=== PATIENT | male | born 1950 | race Caucasian/White ===

== ENCOUNTER 2020-12-11 10:37 | Outpatient (REF) | payer MEDICARE, SELFPAY ==
[2020-12-11 14:29] LABS: Alanine Aminotransferase 18 U/L (0-40); Albumin Level 4.5 g/dL (3.5-5.0); Alkaline Phosphatase 96 U/L (39-117); Anion Gap 12 (12-20); Aspartate Amino Transferase 17 U/L (5-37); Bilirubin Total 0.9 mg/dL (0.0-1.0); Blood Urea Nitrogen 14 mg/dL (9-16); Calcium 9.3 mg/dL (8.4-10.2); Carbon Dioxide 28 mmol/L (22-29); Chloride 104 mmol/L (96-108); Cholesterol 187 mg/dL; Estimated Glomerular Filt Rate > 60; Glucose Fasting 73 mg/dL (60-99); HDL Cholesterol 48 mg/dL; LDL Cholesterol Calculated 117 mg/dl; Potassium 4.3 mmol/L (3.3-5.1); Sodium 140 mmol/L (135-145); Total Protein 7.3 g/dL (6.5-8.0); Triglycerides 113 mg/dL
[2020-12-11 14:55] LABS: Free T4 (Free Thyroxine) 0.77 ng/dL (0.71-1.85); Thyroid Stimulating Hormone 12.92 uIU/mL (0.32-4.0); Vitamin D 25-OH Total 26.9 ng/mL (>30)
== END 2020-12-11 10:38 | disposition home or self-care (01) ==
LOC: HO.HMGCLDS 10:37
PROVIDERS: PCP Internal Medicine; Visit Provider Internal Medicine
DX: I42.1 Obstructive hypertrophic cardiomyopathy (principal); E03.9 Hypothyroidism, unspecified; E78.5 Hyperlipidemia, unspecified; I10 Essential (primary) hypertension; Z12.5 Encounter for screening for malignant neoplasm of prostate
CPT/HCPCS: 36415; 80053; 80061; 82306; 84153; 84439; 84443

== ENCOUNTER 2021-03-29 11:20 | Outpatient (REF) | payer MEDICARE, SELFPAY ==
[2021-03-29 14:52] LABS: Alanine Aminotransferase 20 U/L (0-40); Aspartate Amino Transferase 20 U/L (5-37); Cholesterol 179 mg/dL; HDL Cholesterol 45 mg/dL; LDL Cholesterol Calculated 111 mg/dl; Triglycerides 119 mg/dL
[2021-03-29 14:57] LABS: Free T4 (Free Thyroxine) 0.84 ng/dL (0.71-1.85); Thyroid Stimulating Hormone 2.55 uIU/mL (0.32-4.0); Vitamin D 25-OH Total 71.4 ng/mL (>30)
== END 2021-03-29 11:21 | disposition home or self-care (01) ==
LOC: HO.HMGCLDS 11:20
PROVIDERS: PCP Internal Medicine; Visit Provider Internal Medicine
DX: E78.5 Hyperlipidemia, unspecified (principal); E03.9 Hypothyroidism, unspecified; E55.9 Vitamin D deficiency, unspecified
CPT/HCPCS: 36415; 80061; 82306; 84439; 84443; 84450; 84460

== ENCOUNTER 2021-09-24 10:22 | Outpatient (REF) | payer MEDICARE, OTHER, SELFPAY ==
[2021-09-24 11:46] LABS: Alanine Aminotransferase 29 U/L (0-40); Aspartate Amino Transferase 21 U/L (5-37); Cholesterol 186 mg/dL; HDL Cholesterol 39 mg/dL; LDL Cholesterol Calculated 109 mg/dl; Triglycerides 194 mg/dL
[2021-09-24 11:55] LABS: Free T4 (Free Thyroxine) 0.82 ng/dL (0.71-1.85); Thyroid Stimulating Hormone 5.02 uIU/mL (0.32-4.0)
== END 2021-09-24 10:23 | disposition home or self-care (01) ==
LOC: HO.HMGCLDS 10:22
PROVIDERS: PCP Internal Medicine; Visit Provider Internal Medicine
DX: E03.9 Hypothyroidism, unspecified (principal); E78.5 Hyperlipidemia, unspecified; I10 Essential (primary) hypertension
CPT/HCPCS: 36415; 80061; 84439; 84443; 84450; 84460

== ENCOUNTER 2022-01-31 10:28 | Outpatient (REF) | payer MEDICARE, OTHER, SELFPAY ==
[2022-01-31 12:13] LABS: Alanine Aminotransferase 35 U/L (0-40); Anion Gap 14 (12-20); Aspartate Amino Transferase 23 U/L (5-37); Blood Urea Nitrogen 12 mg/dL (9-16); Calcium 9.3 mg/dL (8.4-10.2); Carbon Dioxide 22 mmol/L (22-29); Chloride 106 mmol/L (96-108); Cholesterol 176 mg/dL; Estimated Glomerular Filt Rate > 60; Glucose Fasting 88 mg/dL (60-99); HDL Cholesterol 42 mg/dL; LDL Cholesterol Calculated 119 mg/dl; Sodium 138 mmol/L (135-145); Triglycerides 79 mg/dL
[2022-01-31 12:34] LABS: Free T4 (Free Thyroxine) 0.91 ng/dL (0.71-1.85); Thyroid Stimulating Hormone 7.87 uIU/mL (0.32-4.0); Vitamin D 25-OH Total 81.7 ng/mL (>30)
== END 2022-01-31 10:29 | disposition home or self-care (01) ==
LOC: HO.HMGCLDS 10:28
PROVIDERS: PCP Internal Medicine; Visit Provider Internal Medicine
DX: E03.9 Hypothyroidism, unspecified (principal); E78.5 Hyperlipidemia, unspecified; I10 Essential (primary) hypertension; I42.1 Obstructive hypertrophic cardiomyopathy
CPT/HCPCS: 36415; 80048; 80061; 82306; 84439; 84443; 84450; 84460

== ENCOUNTER 2022-04-11 08:02 | Outpatient (REF) | payer MEDICARE, SELFPAY ==
[2022-04-11 11:58] LABS: Free T4 (Free Thyroxine) 0.95 ng/dL (0.71-1.85); Thyroid Stimulating Hormone 2.79 uIU/mL (0.32-4.0)
[2022-04-14 16:21] LABS: Thyroid Peroxidase Antibodies >900 IU/mL (<9)
== END 2022-04-11 08:03 | disposition home or self-care (01) ==
LOC: HO.HMGCLDS 08:02
PROVIDERS: PCP Internal Medicine; Visit Provider Internal Medicine
DX: E03.9 Hypothyroidism, unspecified (principal)
CPT/HCPCS: 36415; 84439; 84443; 86376

== ENCOUNTER 2022-08-12 08:57 | Outpatient (REF) | payer MEDICARE, SELFPAY ==
[2022-08-12 11:16] LABS: MANUAL DIFF FLAG NO
[2022-08-12 11:41] LABS: Basophils Absolute Auto 0.1 X10*3/uL (0.0-0.2); Basophils Percent Auto 1.1 % (0-2); Eosinophils Absolute Auto 0.3 X10*3/uL (0.0-0.4); Hematocrit 46.4 % (42.0-52.0); Hemoglobin 15.8 g/dl (14.0-18.0); Imm Gran Abs Auto 0.03 X10*3/uL (0.00-0.03); Imm Gran Pct Auto 0.4 % (0.0-0.4); Lymphocytes Percent Auto 35.8 % (20-40); Mean Corpuscular HGB Conc 34.1 g/dl (31.0-36.0); Mean Corpuscular Volume 93.9 fL (80.0-98.0); Mean Platelet Volume 10.1 fL (9.4-12.4); Monocytes Absolute Auto 0.8 X10*3/uL (0.1-1.2); Monocytes Percent Auto 10.2 % (2-11); Neutrophils Percent Auto 48.5 % (45-73); Platelet Count 249 X10*3/uL (160-400); Red Blood Count 4.94 X10*6/uL (4.60-5.80); Red Cell Distribution Width 13.1 % (11.0-16.0); White Blood Count 8.3 X10*3/uL (4.8-10.8)
[2022-08-12 12:19] LABS: Alanine Aminotransferase 29 U/L (0-40); Aspartate Amino Transferase 23 U/L (5-37); Cholesterol 164 mg/dL; Glucose Fasting 95 mg/dL (60-99); HDL Cholesterol 42 mg/dL; LDL Cholesterol Calculated 101 mg/dl; Triglycerides 107 mg/dL
[2022-08-12 12:23] LABS: Free T4 (Free Thyroxine) 1.01 ng/dL (0.71-1.85); PSA,Total (Free>4and<10) 2.35 ng/mL (0.00-4.00); Thyroid Stimulating Hormone 1.08 uIU/mL (0.32-4.0); Vitamin D 25-OH Total 46.2 ng/mL (>30)
[2022-08-12 12:48] LABS: Folate 6.5 ng/mL (> or = 4.0); Vitamin B12 268 pg/mL (200-900)
== END 2022-08-12 08:58 | disposition home or self-care (01) ==
LOC: HO.HMGCLDS 08:57
PROVIDERS: PCP Internal Medicine; Visit Provider Internal Medicine
DX: Z00.01 Encounter for general adult medical examination with abnormal findings (principal); F32.9 Major depressive disorder, single episode, unspecified; I10 Essential (primary) hypertension; E78.5 Hyperlipidemia, unspecified; E03.9 Hypothyroidism, unspecified; I42.1 Obstructive hypertrophic cardiomyopathy; Z12.5 Encounter for screening for malignant neoplasm of prostate
CPT/HCPCS: 36415; 80061; 82306; 82607; 82746; 82947; 84153; 84439; 84443; 84450; 84460; 85025

== ENCOUNTER → 2022-09-30 09:52 | Outpatient (BNVA) | payer MEDICARE, SELFPAY | PROVIDERS: PCP Internal Medicine; Referring Provider Internal Medicine; Visit Provider Physician Assistant | DX: Z12.11 Encounter for screening for malignant neoplasm of colon (principal) | CPT/HCPCS: 99202 ==

== ENCOUNTER 2023-01-08 08:31 | Day surgery (SDC) | payer MEDICARE, SELFPAY ==
[2023-01-05 11:30] VITALS: BMI 28.2
--- NOTE | 2023-01-07 14:14 | P.CONAN_ITS ---
Documented by User: Karma Friedman NP 01/07/23 14:18 HPI - Anesthesia Eval Consult details Narrative: 72yo M for Colonoscopy Cardiac cleared [facility] Active Problems Active Problems: All Active Problems (Updated 09/30/22 @ 10:25 by Jerrica Broderick PA-C) Encounter for screening colonoscopy (Acute) Not ready to quit smoking (Acute) Erectile dysfunction (Acute) Depression (Acute) Essential hypertension (Acute) Dyslipidemia (Acute) Acquired hypothyroidism (Acute) Hypertrophic obstructive cardiomyopathy (Acute) Past Medical History Medical History Acquired hypothyroidism Depression Dyslipidemia Erectile dysfunction Essential hypertension Hypertrophic obstructive cardiomyopathy Not ready to quit smoking Family History Family History Mother CAD (coronary artery disease) CVD (cardiovascular disease) Sister No problems noted. Son Mental health disorder Daughter No problems noted. Surgical History Surgical History History of surgery History of tonsillectomy Hx of colonoscopy Social History Social History (Updated 09/30/22 @ 10:22 by Jerrica Broderick PA-C) Housing: Apartment Alcohol intake: current Patient Tobacco Use Status: Current everyday Tobacco user Tobacco use type: Cigarette Cigarette Packs Per Day: 0 Cigarettes Per Day: 10 e-Cigarette/Vaping Use: Never Used Use of substances other than those prescribed or required for medical reasons: No Substance Use Type: Marijuana Are you DNR?: No Advance Directives: No Advance Directives Information Provided: Yes Recently lost weight without trying: No Nutrition Risks: No Nutritional Risk Current occupational status: retired Cognitive needs: No Hearing needs: No Vision needs: Yes Meds Allergies Allergy/AdvReac Type Severity Reaction Status Date / Time amoxicillin AdvReac Unknown diarrhea Verified 09/30/22 09:55 Home Medications Medication Instructions Recorded Confirmed Last Taken Type aspirin 81 mg tablet,delayed 81 mg PO DAILY 10/03/21 09/30/22 Unknown History release (Adult Low Dose Aspirin) lidocaine 4 % topical cream 1 appl topical BID 02/13/22 09/30/22 Unknown History cholecalciferol (vitamin D3) 25 25 mcg PO DAILY 08/12/22 09/30/22 Unknown Hist ory mcg (1,000 unit) capsule Exam Exam Date and Time: January 07, 2023 1414 Height,Weight and Vital Signs: Height 5 ft 9 in Weight 86.636 kg Narrative Narrative: ECHO 06/2022 LV not well visualized. Nml LV chamber size. Moderate septal hypertrophy. Endocardium is poorly visualized, however, wall motion appears normal with a normal EF. RV is normal in size and systolic function. PASP could not be obtained. 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 Son Mental health disorder Daughter No problems noted. Family history of problems with anesthesia: No Surgical History Surgical History History of surgery History of tonsillectomy Hx of colonoscopy History of Problems with Anesthesia: No Social History Social History (Updated 09/30/22 @ 10:22 by Jerrica Broderick PA-C) Housing: Apartment Alcohol intake: current Patient Tobacco Use Status: Current everyday Tobacco user Tobacco use type: Cigarette Cigarette Packs Per Day: 0 Cigarettes Per Day: 10 e-Cigarette/Vaping Use: Never Used Use of substances other than those prescribed or required for medical reasons: No Substance Use Type: Marijuana Are you DNR?: No Advance Directives: No Advance Directives Information Provided: Yes Recently lost weight without trying: No Nutrition Risks: No Nutritional Risk Current occupational status: retired Cognitive needs: No Hearing needs: No Vision needs: Yes Meds Allergies Allergy/AdvReac Type Severity Reaction Status Date / Time amoxicillin AdvReac Unknown diarrhea Verified 09/30/22 09:55 Home Medications Medication Instructions Recorded Confirmed Last Taken Type aspirin 81 mg tablet,delayed 81 mg PO DAILY 10/03/21 09/30/22 Unknown History release (Adult Low Dose Aspirin) lidocaine 4 % topical cream 1 appl topical BID 02/13/22 09/30/22 Unknown History cholecalciferol (vitamin D3) 25 25 mcg PO DAILY 08/12/22 09/30/22 Unknown History mcg (1,000 unit) capsule Exam Airway Mallampati Class: II TM Dist: >3cm Neck ROM: Full Loose/Missing/Broken Teeth: Yes (Multiple missing) Assessment and Plan Assessment Anesthesia Assessment: Anesthesia Plan Discussed Final Anesthetic Review Family History of Problems with Anesthesia: No History of Problems with Anesthesia: No NPO: Yes ASA Class: III Final Preanesthetic Review: No Changes in Pt Med Stat, Meds/Allgs Chart Reviewed, Consent Obtained/Reviewed and Anes Risks/Benef Reviewed Patient Risk: Intermediate Procedure Risk: Low Anesthetic Plan Anesthetic Plan: MAC: Disposition: Standard PACU
[2023-01-08 08:44] VITALS: BMI 29.2
--- NOTE | 2023-01-08 08:49 | MHC.SHP ---
Pre-Procedural Eval Section A Date of Service: 01/08/23 Section B Chief Complaint: screening Details of Present Illness: PMH: Acquired hypothyroidism Depression Dyslipidemia Erectile dysfunction Essential hypertension Hypertrophic obstructive cardiomyopathy Not ready to quit smoking Surgical History: History of surgery History of tonsillectomy Hx of colonoscopy Relevant Family History (Specify if Yes): No Present Medications: see Short Stay Collaborative assessment Allergies: Allergies Allergy/AdvReac Type Severity Reaction Status Date / Time amoxicillin AdvReac Unknown diarrhea Verified 09/30/22 09:55 Review of Systems Review of Systems Comment: Ten point ROS negative Exam Exam Comment: Gen appear: No acute distress HEENT: no icterus Chest: No overt resp distress Abd: soft, nontender, nondistended Psych: Stable affect, answering questions appropriately Neuro: A/Ox3 noted to move all extremities spontaneously Ext: no peripheral edema Plan Diagnosis/Plan: Unchanged I have reviewed the history and physical and performed a pertinent physical examination on my patient. No changes have occurred unless specified. Time Spent With Patient Time: Total time managing care of this patient today ____ minutes.
--- NOTE | 2023-01-08 08:52 | P.OP_ITS ---
Operative Note Operative Note Date of Service: 01/08/23 Narrative: Procedure: Colonoscopy Indication: Screening Endoscopist: Sherice Gallegos MD Anesthesia Provider: Dr Mauricio Montanez Anesthesia type: MAC Instrument: Olympus [id number]-[id number] Consent: Indication, risks vs benefits, and alternatives were discussed with the patient who gave written informed consent to proceed. EKG, pulse, pulse oximetry and blood pressure were monitored throughout the procedure. Please see anesthesia flowsheet. Procedure: The patient was brought to the procedure room and placed in the left lateral decubitus position. IV medications were administered by the anesthesia provider in attendance. A digital rectal exam was performed which was normal. The colonoscope was then inserted through the anus and advanced through the colon to the cecum at 75 cm. Appendiceal orifice and ileocecal valve are identified. Mucosa was carefully examined under high definition white light as the instrument was slowly withdrawn in a retrograde panoramic fashion. Ascending colon was intubated twice. Retroflexion was performed in rectum. The procedure was not difficult. There were no immediate obvious complications. The quality of the prep was BBPS: 2+3+2 = adequate Withdrawal time 16 minutes. Limitations: No limitations. Findings: Mucosa: Normal to cecum. Protruding lesions: * 1 sessile polyp of size 5 mm in transverse colon. Cold snare polypectomy was performed. The polyp was completely removed and retrieved. * Medium internal hemorrhoids without stigmata of recent bleeding. Excavated lesions: * Scattered diverticuli in left sided colon. Impression: 1. Normal colon mucosa 2. Total of 1 polyp removed from transverse colon. 3. Internal hemorrhoids 4. Diverticulosis Recommendations: - Follow path results. - Repeat colonoscopy in 7-10 years if polyp is an adenoma.
[2023-01-08 08:55] VITALS: BP 142/69; PULSE 69; RESP 16; TEMP 36.8; O2SAT 95
[2023-01-08] MEDS: Lactated Ringers 1,000 ML 100 ML IVCONT (09:07)
[2023-01-08 10:30] VITALS: BP 88/46; PULSE 75; RESP 18; TEMP 36.9; O2SAT 92
[2023-01-08 10:55] VITALS: BP 113/56; PULSE 67; RESP 18; TEMP 37.1; O2SAT 95
== END 2023-01-08 11:40 | disposition home or self-care (01) ==
PROVIDERS: PCP Internal Medicine; Visit Provider Internal Medicine
PROC: 0DJD8ZZ Inspection of Lower Intestinal Tract, Via Natural or Artificial Opening Endoscopic (ICD-10-PCS; CPT 45378; principal; 2023-01-08 09:40)
DX: Z12.11 Encounter for screening for malignant neoplasm of colon (principal); D12.3 Benign neoplasm of transverse colon; K57.30 Diverticulosis of large intestine without perforation or abscess without bleeding; K64.8 Other hemorrhoids; E03.9 Hypothyroidism, unspecified; E78.5 Hyperlipidemia, unspecified; I10 Essential (primary) hypertension; I42.1 Obstructive hypertrophic cardiomyopathy; Z79.82 Long term (current) use of aspirin; Z79.899 Other long term (current) drug therapy; Z88.1 Allergy status to other antibiotic agents; F17.210 Nicotine dependence, cigarettes, uncomplicated
CPT/HCPCS: 45385; 88305

== ENCOUNTER → 2023-01-22 09:14 | Outpatient (BNVA) | payer MEDICARE, SELFPAY | PROVIDERS: PCP Internal Medicine; Visit Provider Physician Assistant | DX: K57.30 Diverticulosis of large intestine without perforation or abscess without bleeding (principal); K64.9 Unspecified hemorrhoids; D36.9 Benign neoplasm, unspecified site | CPT/HCPCS: 99212 ==

== ENCOUNTER 2023-02-06 07:19 | Outpatient (REF) | payer MEDICARE, OTHER, SELFPAY ==
[2023-02-06 12:38] LABS: Alanine Aminotransferase 24 U/L (0-40); Anion Gap 14 (12-20); Aspartate Amino Transferase 17 U/L (5-37); Blood Urea Nitrogen 19 mg/dL (9-16); Calcium 8.9 mg/dL (8.4-10.2); Carbon Dioxide 24 mmol/L (22-29); Chloride 108 mmol/L (96-108); Cholesterol 173 mg/dL; Estimated Glomerular Filt Rate > 60; Glucose Fasting 104 mg/dL (60-99); HDL Cholesterol 41 mg/dL; LDL Cholesterol Calculated 113 mg/dl; Potassium 4.6 mmol/L (3.3-5.1); Sodium 141 mmol/L (135-145); Triglycerides 97 mg/dL
[2023-02-06 12:39] LABS: Free T4 (Free Thyroxine) 1.03 ng/dL (0.71-1.85); Thyroid Stimulating Hormone 1.21 uIU/mL (0.32-4.0)
== END 2023-02-06 07:20 | disposition home or self-care (01) ==
LOC: HO.HMGCLDS 07:19
PROVIDERS: PCP Internal Medicine; Visit Provider Internal Medicine
DX: E03.9 Hypothyroidism, unspecified (principal); E78.5 Hyperlipidemia, unspecified; F32.9 Major depressive disorder, single episode, unspecified; I10 Essential (primary) hypertension; I42.1 Obstructive hypertrophic cardiomyopathy
CPT/HCPCS: 36415; 80048; 80061; 84439; 84443; 84450; 84460

== ENCOUNTER 2023-08-05 08:07 | Outpatient (REF) | payer MEDICARE, OTHER, SELFPAY ==
[2023-08-05 12:20] LABS: Alanine Aminotransferase 20 U/L (0-40); Anion Gap 13 (12-20); Aspartate Amino Transferase 22 U/L (5-37); Blood Urea Nitrogen 13 mg/dL (9-16); Calcium 9.8 mg/dL (8.4-10.2); Carbon Dioxide 24 mmol/L (22-29); Chloride 106 mmol/L (96-108); Cholesterol 159 mg/dL (<200); Estimated Glomerular Filt Rate > 60; Glucose Fasting 78 mg/dL (60-99); HDL Cholesterol 43 mg/dL (>40); LDL Cholesterol Calculated 100 mg/dL (<100); Potassium 4.3 mmol/L (3.3-5.1); Sodium 139 mmol/L (135-145); Triglycerides 84 mg/dL (<150)
[2023-08-05 12:38] LABS: Thyroid Stimulating Hormone 0.96 uIU/mL (0.32-4.0); Vitamin D 25-OH Total 59.4 ng/mL (>30)
== END 2023-08-05 08:08 | disposition home or self-care (01) ==
LOC: HO.HMGCLDS 08:07
PROVIDERS: PCP Internal Medicine; Visit Provider Internal Medicine
DX: F32.9 Major depressive disorder, single episode, unspecified (principal); I10 Essential (primary) hypertension; E78.5 Hyperlipidemia, unspecified; E03.9 Hypothyroidism, unspecified; I42.1 Obstructive hypertrophic cardiomyopathy; R53.83 Other fatigue; K64.9 Unspecified hemorrhoids
CPT/HCPCS: 36415; 80048; 80061; 82306; 82607; 82746; 84439; 84443; 84450; 84460; 85014; 85018

== ENCOUNTER 2023-08-11 08:16 | Outpatient (AMB) | payer MEDICARE, SELFPAY ==
--- NOTE | 2023-08-11 08:20 | MHC.PC.OV ---
Vital Signs 08/11/23 08:21 Height 5 ft 8 in Weight 187 lb 8 oz BMI 28.5 BP 138/74 Blood Pressure Location Lt brachial Position Sitting Pulse 57 Pulse Source Pulse Oximeter Pulse Oximetry (%) 100 Oxygen Delivery Method Room Air Intake Visit Reasons: Annual PE, Lipids, Thyroid and HTN Intake Note: pt is here for a PE and has had his labs Allergies amoxicillin Adverse Reaction (Unknown, Verified 08/11/23 09:05) diarrhea Medication List - Last Reconciled 08/11/23 by Jessica Berry MD aspirin (Adult Low Dose Aspirin) 81 mg PO DAILY atorvastatin 10 mg PO DAILY gabapentin 400 mg (1/2 x 800 mg) PO BID 90 days levothyroxine 100 mcg PO DAILY lidocaine 4% 1 appl topical BID venlafaxine ER 75 mg PO DAILY 90 days venlafaxine ER 150 mg PO DAILY verapamil ER 240 mg PO DAILY Tobacco use date assessed: 08/11/23 Fall risk assessment: No Falls in past year Last assessed Fall Risk: 08/11/23 Dental Screening Dental Screen Date: 08/11/23 Did you have a dental visit in the last 12 months?: Yes Did you have a dental problem in the last 6 months where you did not have access to dental care?: No Was dental information given to patient?: Patient has dentist HPI Annual PE, Lipids, Thyroid and HTN HPI Details 72 year old Male here today for his physical exam. He has history of HOCM s/p surgery, hyperlipidemia, hypothyroidism, hypertension, history of tubular adenoma removed on screening colonoscopy done 01/08/2023, has history of depression, stable and controlled on venlafaxine. Complains of pulsatile and in his left ear, will worse when he is lying down and sleeping. Denies any accompanying chest pain, no dizziness, no nasal congestion reported. He continues to smoke cigarettes with no desire to quit at present time He had recent fasting labs done which showed results as follows below: Laboratory Tests 08/05/23 08:[address] [facility] Medical History (Updated 08/11/23 @ 09:16 by Jessica Berry MD) Smoker unmotivated to quit Not ready to quit smoking Erectile dysfunction Depression Essential hypertension Dyslipidemia Acquired hypothyroidism Hypertrophic obstructive cardiomyopathy Surgical History Hx of colonoscopy History of surgery History of tonsillectomy Family History Mother CAD (coronary artery disease) CVD (cardiovascular disease) Sister No problems noted. Son Mental health disorder Daughter No problems noted. Social History Housing: Apartment Alcohol intake: current Patient Tobacco Use Status: Current everyday Tobacco user Tobacco use type: Cigarette Cigarette Packs Per Day: 0 Cigarettes Per Day: 10 e-Cigarette/Vaping Use: Never Used Substance Use Type: Marijuana Current occupational status: retired Cognitive needs: No Hearing needs: No Vision needs: Yes Questionnaire PHQ-9 Over the last 2 weeks, how often have you been bothered by any of the following problems? Depression Screening Interpretation: Negative Depression Screening Done: Yes Source: Developed by Drs. Lan Jimenez, Merry Doll, Abdi Serna and colleagues, with an educational andrei from [employer]. Thrive Questionnaire Date Thrive assessed: 02/10/23 AUDIT C Alcohol Use Questionnaire (AUDIT-C) 1. How often do you have a drink containing alcohol?: Never Total Score: 0 GWENDOLYN-7 AMB Questionnaire GWENDOLYN-7 Date GWENDOLYN - 7 assessed: 02/10/23 Source: Developed by Drs. Lan Jimenez, Merry Doll, Abdi Serna and colleagues, with an educational andrei from [employer]. Review of Systems Const All systems reviewed & are unremarkable except as noted in HPI and below ENT Reports no additional complaints, Reports Normal hearing present and Reports tinnitus (Left ear) Card Denies chest pain and Denies dyspnea Resp Denies chest congestion, Denies cough and Denies dyspnea GI Denies abdominal pain, Denies change in bowel habits and Denies heartburn Reports no additional complaints Musc Reports no additional complaints Skin/Breast Details: Goes to [facility] for his routine skin exam Neuro Reports no additional complaints and Reports Normal hearing present Psych Reports no additional complaints Endo Reports no additional complaints Orestes/Lymph Reports no additional complaints Aller/Immun Reports no additional complaints Physical exam (Primary Care) Vital Signs: Last Vital Signs Pulse 57 08/11/23 08:21 BP 138/74 08/11/23 08:21 Pulse Ox 100 08/11/23 08:21 Oxygen Delivery Method Room Air 08/11/23 08:21 BMI result Body Mass Index 28.5 BMI Assessment/Plan discussion: High BMI High, discussed plan: lifestyle, weight reduction, dietary and physical activity Tobacco/Smoking Status: Tobacco use Status Tobacco use date assessed 08/11/23 08/11/23 08:24 Patient Tobacco Use Status Current everyday Tobacco 08/11/23 08:20 Tobacco use type Cigarette 08/11/23 08:20 e-Cigarette/Vaping Use Never Used 08/11/23 08:20 Are you ready to quit: No Depression Screening Interpretation: Negative Thrive Assessment: Date of Thrive Assessment Date Thrive assessed 02/10/23 08/11/23 08:20 Const General: comfortable, no acute distress and Physically active Orientation/consciousness: patient oriented x3 HENMT Ears: hearing grossly normal bilaterally, external ears normal and Abnormal EAC present excessive cerumen bilateral Mouth: Normal oral and palatal mucosa present and oropharynx normal Eyes General: appearance normal, both eyes and all related structures Periorbital: periorbital findings normal Eyelids: Yes eyelids normal Conjunctivae: conjunctivae normal Sclerae: sclerae normal Pupils: Equal, round and reactive pupils present EOM: EOMs intact bilaterally Neck Neck: Yes full ROM, Yes no lymphadenopathy and Yes supple Thyroid: Thyroid normal Chest Chest palpation & inspection: normal inspection of the chest Resp Effort & Inspection: normal respiratory effort and able to speak in complete sentences Auscultation: clear to auscultation bilaterally Cardio Rate: regular rate Rhythm: regular rhythm Heart sounds: S1 normal heart sound present and S2 normal heart sound present Bruits: no carotid bruits GI Inspection: Yes obesity Palpation (GI): Soft to palpation, nontender, no guarding and no masses Auscultation: normal bowel sounds Male General Exam: Yes normal external exam Back/Spine/Pelvis Back: No back tenderness Skin General skin exam: no rashes or lesions noted Neuro General: patient oriented x3, gait normal, moves all extremities, Normal light touch and pain sensation, no focal motor deficits and CN's II-XI intact bilaterally Cranial nerves: Yes Equal, round and reactive pupils present and Yes Normal hearing present Cognition (Neuro): normal cognition Gait exam (Neuro): Normal gait present Extrem General: Yes full ROM, Yes no joint enlargement, Yes no clubbing, cyanosis or edema and Yes normal gait Psych Appearance: grossly normal Mental Status: mental status grossly normal Speech and movement: Normal speech and movement present Affect: normal affect Attitude: cooperative Thought process: Normal thought process present Results Reviewed Results Reviewed: ENTERED: 08/05/23 MINNA HERRERA: ORDERED: Met Prof Fast, AST, ALT, Lipid Panel, Vitamin D 25-OH, Free T4, TSH Test Result Flag Reference Site Sodium 139 135-145 mmol/L Potassium 4.3 3.3-5.1 mmol/L CL 106 96-108 mmol/L CO2 24 22-29 mmol/L Gap 13 12-20 BUN 13 9-16 mg/dL Creat 0.82 0.5-1.4 mg/dL EGFR > 60 NOTE: For -Cypriot individuals, multiply the result by 1.210. Chronic Kidney Disease: Estimated GFR < 60 mL/min/1.73m2 Severe Kidney Disease: Estimated GFR < 15 mL/min/1.73m2 FBS 78 60-99 mg/dL CA 9.8 # 8.4-10.2 mg/dL AST (GOT) 22 5-37 U/L ALT (GPT) 20 0-40 U/L Triglyceride 84 <150 mg/dL Desirable Triglyceride: less than 150 mg/dL Borderline High Triglyceride 150-199 mg/dL High Triglyceride: 200-499 mg/dL Very High Triglyceride: greater than or equal to 5OO mg/dL Cholesterol 159 <200 mg/dL Desirable Cholesterol: less than 200 mg/dL Borderline High Cholesterol: 200-239 mg/dL High Cholesterol: greater than 239 mg/dL LDL Calculated 100 H <100 mg/dL Desirable LDL: less than 100 mg/dL Near Optimal/Above Optimal LDL: 110-129 mg/dL Borderline High LDL: 130-159 mg/dL High LDL: 160-189 mg/dL Very High LDL: greater than or equal to 190 mg/dL HDL 43 >40 mg/dL Desirable HDL: greater than 40 mg/dL Note: This HDL assay may give artificially low results in patients with liver disease. Vit D 25-OH Tot 59.4 >30 ng/mL Health Based Reference Values* < 20 ng/mL Deficient 20-30 ng/mL Insufficient > 30 ng/mL Sufficient *Belinda DOMINGUEZ. N Engl J Med. 2007;[id number] Care must be taken in interpreting Vitamin D results from different laboratories and methodologies. Published data demonstrated that results from patients undergoing hemodialysis may show a negative bias when tested with various automated 25-OH vitamin D assays when compared to LC-MS/MS. When testing samples from patients whose predominant form of Vitamin D is Vitamin D2, such as patients receiving Vitamin D2 supplementation, results that are subtherapeutic should be confirmed with another method such as LC-MS/MS. Free T4 1.10 0.71-1.85 ng/dL TSH 3rd Gen. 0.96 0.32-4.0 uIU/mL Assessment and Plan Assessment & Plan (1) Annual visit for general adult medical examination with abnormal findings: Code(s): Z00.01 - Encounter for general adult medical examination with abnormal findings Plan: Reviewed recent fasting lab results with patient. Continue regular dental visit every 6 months and regular eye exams, at least every 2 years. Take adequate calcium in diet and vitamin-D 3 at 2000 IU per cap once a day, in addition to weight-bearing exercises to help maintain good muscle tone and weight control. Instructed to do self-testicular exam check for any mass. Patient is up-to-date with all his vaccines except for his flu shot advised to get it at the pharmacy (2) Pulsatile tinnitus: Code(s): H93.A9 - Pulsatile tinnitus, unspecified ear Plan: Ordered carotid ultrasound bilaterally, referred to ENT for further evaluation management. (3) Essential hypertension: Code(s): I10 - Essential (primary) hypertension Plan: Blood pressure at goal of less than 130/80. Continue with current medication. Reinforced importance of following a low sodium diet, getting regular exercise, and lowering stress levels. (4) Dyslipidemia: Code(s): E78.5 - Hyperlipidemia, unspecified Plan: Reviewed recent fasting lipid profile with patient with levels at goal . Continue with atorvastatin 10 mg daily , in addition to adherence to low-cholesterol diet and regular exercise, at least 30 minutes 3 to 4 times a week. Advised patient to make healthy food choices, eat more fruits, vegetables, whole grains, wild caught fish and low-fat dairy. Limit amount of meat and fried or fatty food products, as well as processed foods and fast foods. Follow-up scheduled with repeat fasting lipid panel in see months. (5) Acquired hypothyroidism: Code(s): E03.9 - Hypothyroidism, unspecified Plan: Thyroid levels are within normal limits, continue on levothyroxine 100 mcg daily (6) Depression: Code(s): F32.9 - Major depressive disorder, single episode, unspecified Qualifiers: Depression Type: major depressive disorder Major depression recurrence: recurrent Active/Remission status: in full remission Qualified Code(s): F33.42 - Major depressive disorder, recurrent, in full remission Plan: Continue on venlafaxine (7) Smoker unmotivated to quit: Code(s): F17.200 - Nicotine dependence, unspecified, uncomplicated Plan: Patient strongly advised to stop smoking, as smoking damages blood vessels, degenerative of joints and spine, damage to lungs and heart., predisposes to developing certain cancers like lung, breast, bladder, colon. Recommended to try decreasing cigarette use by 1-2 cigarettes a day. Advised to monitor what triggers are for smoking so that this can be discussed on the next office visit. We can discuss different options to quit smoking when ready. Orders: Orders Thyroid Stimulating Hormone 01/25/24 E03.9 - Hypothyroidism, unspecified, E78.5 - Hyperlipidemia, unspecified, F32.9 - Major depressive disorder, single episode, unspecified, I10 - Essential (primary) hypertension, I42.1 - Obstructive hypertrophic cardiomyopathy, Z86.39 - Personal history of other endocrine, nutritional and metabolic disease Lipid Panel 01/25/24 E03.9 - Hypothyroidism, unspecified, E78.5 - Hyperlipidemia, unspecified, F32.9 - Major depressive disorder, single episode, unspecified, I10 - Essential (primary) hypertension, I42.1 - Obstructive hypertrophic cardiomyopathy, Z86.39 - Personal history of other endocrine, nutritional and metabolic disease Alanine Aminotransferase 01/25/24 E03.9 - Hypothyroidism, unspecified, E78.5 - Hyperlipidemia, unspecified, F32.9 - Major depressive disorder, single episode, unspecified, I10 - Essential (primary) hypertension, I42.1 - Obstructive hypertrophic cardiomyopathy, Z86.39 - Personal history of other endocrine, nutritional and metabolic disease Aspartate Amino Transferase 01/25/24 E03.9 - Hypothyroidism, unspecified, E78.5 - Hyperlipidemia, unspecified, F32.9 - Major depressive disorder, single episode, unspecified, I10 - Essential (primary) hypertension, I42.1 - Obstructive hypertrophic cardiomyopathy, Z86.39 - Personal history of other endocrine, nutritional and metabolic disease Basic Metabolic Panel Fasting 01/25/24 E03.9 - Hypothyroidism, unspecified, E78.5 - Hyperlipidemia, unspecified, F32.9 - Major depressive disorder, single episode, unspecified, I10 - Essential (primary) hypertension, I42.1 - Obstructive hypertrophic cardiomyopathy, Z86.39 - Personal history of other endocrine, nutritional and metabolic disease Vitamin D 25-OH Total 01/25/24 E03.9 - Hypothyroidism, unspecified, E78.5 - Hyperlipidemia, unspecified, F32.9 - Major depressive disorder, single episode, unspecified, I10 - Essential (primary) hypertension, I42.1 - Obstructive hypertrophic cardiomyopathy, Z86.39 - Personal history of other endocrine, nutritional and metabolic disease carotid duplex BI Today H93.A9 - Pulsatile tinnitus, unspecified ear, I42.1 - Obstructive hypertrophic cardiomyopathy Free T4 (Free Thyroxine) 01/25/24 E03.9 - Hypothyroidism, unspecified, E78.5 - Hyperlipidemia, unspecified, F32.9 - Major depressive disorder, single episode, unspecified, I10 - Essential (primary) hypertension, I42.1 - Obstructive hypertrophic cardiomyopathy, Z86.39 - Personal history of other endocrine, nutritional and metabolic disease Vitamin B12 and Folate 01/25/24 E03.9 - Hypothyroidism, unspecified, E78.5 - Hyperlipidemia, unspecified, F32.9 - Major depressive disorder, single episode, unspecified, I10 - Essential (primary) hypertension, I42.1 - Obstructive hypertrophic cardiomyopathy, Z86.39 - Personal history of other endocrine, nutritional and metabolic disease PSA,Total (Free>4and<10) 01/25/24 E03.9 - Hypothyroidism, unspecified, E78.5 - Hyperlipidemia, unspecified, F32.9 - Major depressive disorder, single episode, unspecified, I10 - Essential (primary) hypertension, I42.1 - Obstructive hypertrophic cardiomyopathy, Z86.39 - Personal history of other endocrine, nutritional and metabolic disease Referrals Ear/Nose/Throat Referral H93.A9 - Pulsatile tinnitus, unspecified ear Coding Level of Care Code Est Pt Prev Care >65y(44601) Diagnoses Annual visit for general adult medical examination with abnormal findings Z00.01 Pulsatile tinnitus H93.A9 Essential hypertension I10 Dyslipidemia E78.5 Acquired hypothyroidism E03.9 Recurrent major depressive disorder, in full remission F33.42 Depression Type: major depressive disorder Major depression recurrence: recurrent Active/Remission status: in full remission Smoker unmotivated to quit F17.200
[2023-08-11 08:21] VITALS: BP 138/74; PULSE 57; O2SAT 100; BMI 28.5
== END 2023-08-11 09:34 | disposition home or self-care (01) ==
PROVIDERS: Visit Provider Internal Medicine
DX: Z00.00 Encounter for general adult medical examination without abnormal findings (principal); H93.A9 Pulsatile tinnitus, unspecified ear; I10 Essential (primary) hypertension; F33.42 Major depressive disorder, recurrent, in full remission; E78.5 Hyperlipidemia, unspecified; E03.9 Hypothyroidism, unspecified; F17.210 Nicotine dependence, cigarettes, uncomplicated
CPT/HCPCS: 99397

== ENCOUNTER 2023-08-17 13:50 | Outpatient (REF) | payer MEDICARE, OTHER, SELFPAY ==
--- NOTE | ~2023-08-17 | US_ITS ---
EXAMINATION: US EXTRACRANIAL CAROTID DUPLEX, BILATERAL CLINICAL INFORMATION: Pulsatile tinnitus. COMPARISON: None available. TECHNIQUE: Real-time ultrasound and Doppler techniques (integrating B-mode 2-D vascular images, Doppler spectral analysis and color-flow Doppler imaging) were utilized to interrogate the extracranial carotid arteries, the vertebral arteries and proximal subclavian arteries bilaterally. The degree of stenosis is determined by criteria similar to NASCET. FINDINGS: Right Side: 1. There is mild atherosclerotic plaque seen in the bifurcation/proximal ICA region. 2. The common carotid artery PSV proximally is 113 cm/s and distally 88 cm/s. 3. The proximal internal carotid artery velocities are 67 cm/s systolic and 15 cm/s diastolic. 4. The proximal external carotid artery PSV is 116 cm/s. 5. The vertebral artery shows antegrade flow. 6. The subclavian artery waveforms are normal. Left Side: 1. There is mild atherosclerotic plaque seen in the bifurcation/proximal ICA region. 2. The common carotid artery PSV proximally is 177 cm/s and distally 90 cm/s. 3. The proximal internal carotid artery velocities are 77 cm/s systolic and 13 cm/s diastolic. 4. The proximal external carotid artery PSV is 118 cm/s. 5. The vertebral artery shows antegrade flow. 6. The subclavian artery velocity is mildly elevated. An arrhythmia is noted. US/US carotid duplex BI IMPRESSION: 1. RIGHT: Minimal, non-hemodynamically significant stenosis of the proximal right internal carotid artery corresponding to a 0-49% stenosis by velocity criteria. 2. LEFT: Minimal, non-hemodynamically significant stenosis of the proximal left internal carotid artery corresponding to a 0-49% stenosis by velocity criteria. 3. Elevated velocity left subclavian artery consistent with moderate stenosis. Antegrade flow in both vertebral arteries. 4. Cardiac arrhythmia. Correlate clinically.
== END 2023-08-17 13:51 | disposition home or self-care (01) ==
LOC: HO.HMGCX 13:50
PROVIDERS: PCP Internal Medicine; Visit Provider Internal Medicine
DX: I42.1 Obstructive hypertrophic cardiomyopathy (principal); I65.03 Occlusion and stenosis of bilateral vertebral arteries; H93.A9 Pulsatile tinnitus, unspecified ear
CPT/HCPCS: 93880

== ENCOUNTER 2023-09-21 08:12 | Outpatient (REF) | payer MEDICARE, SELFPAY ==
--- NOTE | ~2023-09-21 | US_ITS ---
EXAMINATION: US ABDOMEN COMPLETE CLINICAL INFORMATION: Incidental liver cyst COMPARISON: None available. TECHNIQUE: Real-time imaging of the abdominal viscera. FINDINGS: PANCREAS: Normal. ABDOMINAL AORTA: The proximal aorta is obscured. Mid and distal aorta with atherosclerotic calcifications but nonaneurysmal. INFERIOR VENA CAVA: Visualized portions are normal. LIVER: Fused increased echogenicity to the hepatic parenchyma with focal fatty sparing adjacent to the gallbladder fossa. No focal hepatic lesion. There is no intrahepatic biliary duct dilatation seen. GALLBLADDER: Nonmobile gallbladder wall echogenicity is identified. The gallbladder is physiologically distended without sludge, wall thickening or pericholecystic fluid. COMMON BILE DUCT: Normal in caliber measuring 0.4 cm in diameter. RIGHT KIDNEY: Normal. No hydronephrosis. No renal calculi or focal parenchymal lesions. The kidney measures 11.2 cm in maximum dimension. LEFT KIDNEY: Normal. No hydronephrosis. No renal calculi or focal parenchymal lesions. The kidney measures 11.8 cm in maximum dimension. SPLEEN: Normal. The spleen measures 10.5 cm in maximum dimension. FREE FLUID: None. US/US abdomen complete IMPRESSION: Hepatic steatosis. Question gallstone adherent to gallbladder wall. Atherosclerosis.
== END 2023-09-21 08:13 | disposition home or self-care (01) ==
LOC: HO.US 08:12
PROVIDERS: PCP Internal Medicine; Visit Provider Internal Medicine
DX: K76.89 Other specified diseases of liver (principal)
CPT/HCPCS: 76700

== ENCOUNTER 2023-11-30 13:17 | Outpatient (AMB) | payer MEDICARE, MEDICAID, SELFPAY ==
[2023-11-30 13:30] VITALS: BP 146/64; PULSE 60; O2SAT 96; BMI 29.5
--- NOTE | 2023-11-30 13:30 | MHC.PC.OV ---
Vital Signs 11/30/23 13:30 Height 5 ft 8 in Weight 194 lb BMI 29.5 BP 146/64 H Blood Pressure Location Rt brachial Position Sitting Pulse 60 Pulse Source Pulse Oximeter Pulse Oximetry (%) 96 Oxygen Delivery Method Room Air Intake Visit Reasons: right ankle injury Intake Note: Pt is here today c/o Rt ankle pain due to a fall yesterday Allergies amoxicillin Adverse Reaction (Unknown, Verified 11/30/23 13:41) diarrhea Medication List - Last Reconciled 11/30/23 by Jessica Berry MD aspirin (Adult Low Dose Aspirin) 81 mg PO DAILY atorvastatin 10 mg PO DAILY gabapentin 400 mg (1/2 x 800 mg) PO BID 90 days levothyroxine 100 mcg PO DAILY lidocaine 4% 1 appl topical BID venlafaxine ER 75 mg PO DAILY 90 days venlafaxine ER 150 mg PO DAILY verapamil ER 240 mg PO DAILY Tobacco use date assessed: 11/30/23 Fall risk assessment: 1 Fall in past year Last assessed Fall Risk: 11/30/23 Dental Screening Dental Screen Date: 11/30/23 Did you have a dental visit in the last 12 months?: Yes Did you have a dental problem in the last 6 months where you did not have access to dental care?: No Was dental information given to patient?: Patient has dentist HPI right ankle injury HPI Details 73-year-old male here today complaining of pain in his right ankle. He has peripheral neuropathy, was getting off the couch yesterday when he landed wrong on his right foot. He has been icing it, and took ibuprofen which afforded temporary relief of pain. When he woke up this morning, the swelling and pain was not there , but started coming back again when he started walking around. [facility] Medical History Smoker unmotivated to quit Not ready to quit smoking Erectile dysfunction Depression Essential hypertension Dyslipidemia Acquired hypothyroidism Hypertrophic obstructive cardiomyopathy Surgical History Hx of colonoscopy History of surgery History of tonsillectomy Family History Mother CAD (coronary artery disease) CVD (cardiovascular disease) Sister No problems noted. Son Mental health disorder Daughter No problems noted. Social History Housing: Apartment Alcohol intake: current Patient Tobacco Use Status: Current everyday Tobacco user Tobacco use type: Cigarette Cigarette Packs Per Day: 0 Cigarettes Per Day: 10 e-Cigarette/Vaping Use: Never Used Substance Use Type: Marijuana Current occupational status: retired Cognitive needs: No Hearing needs: No Vision needs: Yes Questionnaire PHQ-9 Over the last 2 weeks, how often have you been bothered by any of the following problems? 1. Little interest or pleasure in doing things: not at all 2. Feeling down, depressed, or hopeless: not at all 3. Trouble falling or staying asleep, or sleeping too much: not at all 4. Feeling tired or having little energy: not at all 5. Poor appetite or overeating: not at all 6. Feeling bad about yourself - or that you are a failure or have let yourself or your family down: not at all 7. Trouble concentrating on things, such as reading the newspaper or watching television: not at all 8. Moving or speaking so slowly that other people could have noticed. Or the opposite - being so fidgety or restless that you have been moving around a lot more than usual: not at all 9. Thoughts that you would be better off or of hurting yourself in some way: not at all Total score: 0 Depression Screening Interpretation: Negative Depression Screening Done: Yes 99182 - PHQ-9 Billing: Yes Source: Developed by Drs. Lan Jimenez, Merry Doll, Abdi Serna and colleagues, with an educational andrei from [employer]. Thrive Questionnaire Date Thrive assessed: 11/30/23 What is your living situation today?: I have a steady place to live Within the past 12 months, did the food you bought not last and you didn't have the money to get more?: Never true Within the past 12 months, did you worry whether your food would run out before you got money to buy more?: Never true Do you have trouble paying for medicines?: No Do you have trouble getting transportation to medical appointments?: No Do you have trouble paying your heating and electricity bill?: No Do you have trouble taking care of your child, family member or friend?: No Do you have trouble with day-to-day activities such as bathing, preparing meals, shopping, managing finances, etc.?: No Are you currently unemployed and looking for a job?: No Are you interested in more education?: No THRIVE Score: 0 AUDIT C Alcohol Use Questionnaire (AUDIT-C) 1. How often do you have a drink containing alcohol?: Monthly or less 2. How many drinks containing alcohol do you have on a typical day when you are drinking?: 1 or 2 3. How often do you have six or more drinks on one occasion?: Never Total Score: 1 GWENDOLYN-7 AMB Questionnaire GWENDOLYN-7 Date GWENDOLYN - 7 assessed: 11/30/23 Feeling nervous, anxious, or on edge: 0 = Not at all Not being able to stop or control worryin = Not at all Worrying too much about different things: 0 = Not at all Trouble relaxin = Not at all Being so restless that it is hard to sit still: 0 = Not at all Becoming easily annoyed or irritable: 0 = Not at all Feeling afraid as if something awful might happen: 0 = Not at all Total GWENDOLYN-7 score (0-4 normal; 5-9 mild; 10-14 moderate; 15-21 severe): 0 Source: Developed by Drs. Lan Jimenez, Merry Doll, Abdi Serna and colleagues, with an educational andrei from [employer]. GWENDOLYN-7 Assessment Billing GWENDOLYN-7 Assessment Tool: GWENDOLYN-7 Assessment 02890 Review of Systems Const All systems reviewed & are unremarkable except as noted in HPI and below Physical exam (Primary Care) Vital Signs: Last Vital Signs Pulse 60 11/30/23 13:30 BP 146/64 H 11/30/23 13:30 Pulse Ox 96 11/30/23 13:30 Oxygen Delivery Method Room Air 11/30/23 13:30 BMI result Body Mass Index 29.5 Tobacco/Smoking Status: Tobacco use Status Tobacco use date assessed 11/30/23 11/30/23 13:33 Patient Tobacco Use Status Current everyday Tobacco 11/30/23 13:33 Tobacco use type Cigarette 11/30/23 13:33 e-Cigarette/Vaping Use Never Used 11/30/23 13:33 Depression Screening Interpretation: Negative Thrive Assessment: Date of Thrive Assessment Date Thrive assessed 02/10/23 11/30/23 13:33 Const Other: Alert oriented x3, no acute cardiorespiratory distress, ambulatory with a cane Resp Effort & Inspection: normal respiratory effort and able to speak in complete sentences Cardio Other: S1-S2 present regular rate and rhythm Extrem Other: Diffuse erythema and mild swelling on lower 1/3 of right lower extremity extending to right foot, decreased range of motion of right ankle joint due to pain and stiffness, slight tenderness on palpation over lateral aspect of right ankle Assessment and Plan Assessment & Plan (1) Pain and swelling of right ankle: Code(s): M25.571 - Pain in right ankle and joints of right foot; M25.471 - Effusion, right ankle (2) History of fall: Code(s): Z91.81 - History of falling Plan X-ray right ankle ordered, advised to alternate taking Tylenol arthritis and ibuprofen every 6 hours as needed for pain, elevate leg as much as possible, apply alternating ice or heat to affected joint fo at least 30 minutes to 2- 3 times a day Orders: Orders XR ankle RT min 3V Today M25.471 - Effusion, right ankle, M25.571 - Pain in right ankle and joints of right foot, Z91.81 - History of falling Coding Level of Care Code Est Pt Level 3 (28104) Diagnoses Pain and swelling of right ankle M25.571; M25.471 History of fall Z91.81 Additional Codes GWENDOLYN-7 Assessment Billing - GWENDOLYN-7 Assessment Tool: GWENDOLYN-7 Assessment [id number] ([id number])
== END 2023-11-30 15:21 | disposition home or self-care (01) ==
LOC: HO.HMGC 13:17
PROVIDERS: PCP Internal Medicine; Visit Provider Internal Medicine
DX: M25.571 Pain in right ankle and joints of right foot (principal); M25.471 Effusion, right ankle; Z91.81 History of falling
CPT/HCPCS: 99213

== ENCOUNTER 2023-11-30 13:51 | Outpatient (REF) | payer MEDICARE, OTHER, SELFPAY ==
--- NOTE | ~2023-11-30 | XR_ITS ---
EXAMINATION: XR ANKLE, RIGHT CLINICAL INFORMATION: Pain. COMPARISON: None available. TECHNIQUE: AP, lateral, and mortise views of the right ankle. FINDINGS: There is oblique fracture distal fibula without displacement.. There is moderate lateral malleolar soft tissue swelling. No additional fracture seen. Ankle mortise and subtalar joints are normal. There is a small calcaneal heel enthesophyte. XR/XR ankle RT min 3V IMPRESSION: 1. Oblique fracture distal fibula with moderate lateral malleolar soft tissue swelling. No additional fracture seen. 2. Small calcaneal heel enthesophyte.
== END 2023-11-30 13:52 | disposition home or self-care (01) ==
LOC: HO.HMGCX 13:51
PROVIDERS: PCP Internal Medicine; Visit Provider Internal Medicine
DX: M25.571 Pain in right ankle and joints of right foot (principal); M25.471 Effusion, right ankle; Z91.81 History of falling
CPT/HCPCS: 73610

== ENCOUNTER 2023-12-03 07:52 | Outpatient (AMB) | payer MEDICARE, MEDICAID, SELFPAY ==
--- NOTE | 2023-12-03 08:03 | MHC.OFFVIS ---
Intake Vital Signs 12/03/23 08:04 Height 5 ft 8 in Weight 194 lb BMI 29.5 Intake Visit Reasons: FC- RT Ankle fx, DOI 11/29/23 Intake Note: Teddy is a 73 year old male who presents today for a fracture care visit s/p Right Ankle injury on 11/29/23. He reports that he was sitting on the floor, when he went to get up her fell backwards due to his peripheral neropathy. When he fell her heard multiple pops in the ankle, after injury he iced the ankle and elevated. his pain and swelling increased as time progressed. He was seen with his PCP who gave him crutches, but he has been using a cane instead. He is taking tylenol and Ibuprofen. Allergies amoxicillin Adverse Reaction (Unknown, Verified 11/30/23 13:41) diarrhea Medication List - Last Reconciled 12/03/23 by Paula Bianchi PA-C atorvastatin 10 mg PO DAILY gabapentin 400 mg (1/2 x 800 mg) PO BID 90 days levothyroxine 100 mcg PO DAILY lidocaine 4% 1 appl topical BID venlafaxine ER 75 mg PO DAILY 90 days venlafaxine ER 150 mg PO DAILY verapamil ER 240 mg PO DAILY HPI FC- RT Ankle fx, DOI 11/29/23 HPI Details 73-year-old male who presents in the office today, as a new patient, for an evaluation of right ankle pain. The patient was evaluated by his PCP on 11/30/2023 status post getting off the couch on 11/28/2023 when he landed on his right foot incorrectly. X-rays were obtained. He was instructed to not bear weight on the right lower extremity and a referral was made for Orthopedics. While in the office today he reports he was sitting on the floor and when he went to get up he fell backwards due to his peripheral neuropathy. He states when he fell he heard multiple pops in his right ankle. He reports applying ice and elevating the ankle after the injury. He states his pain and edema increased over time. He confirms being seen by his PCP who gave him crutches, but he has been using a cane instead. He confirms the use of Tylenol and Ibuprofen. Patient has a significant medical history of peripheral neuropathy. [facility] Medical History Closed right fibular fracture Smoker unmotivated to quit Not ready to quit smoking Erectile dysfunction Depression Essential hypertension Dyslipidemia Acquired hypothyroidism Hypertrophic obstructive cardiomyopathy Surgical History Hx of colonoscopy History of surgery History of tonsillectomy Family History Mother CAD (coronary artery disease) CVD (cardiovascular disease) Sister No problems noted. Son Mental health disorder Daughter No problems noted. Social History Housing: Apartment Alcohol intake: current Patient Tobacco Use Status: Current everyday Tobacco user Tobacco use type: Cigarette Cigarette Packs Per Day: 0 Cigarettes Per Day: 10 e-Cigarette/Vaping Use: Never Used Substance Use Type: Marijuana Current occupational status: retired Cognitive needs: No Hearing needs: No Vision needs: Yes Review of Systems Const All systems reviewed & are unremarkable except as noted in HPI and below Physical Exam Vital Signs: BMI result Body Mass Index 29.5 Const General: cooperative and no acute distress Orientation/consciousness: patient oriented x3 Resp Effort & Inspection: normal respiratory effort and able to speak in complete sentences Cardio Peripheral pulses: Peripheral pulses 2+ throughout Skin General skin exam: no rashes or lesions noted Neuro General: patient oriented x3 Extrem Other: Right ankle: Lateral malleolar edema. No tenderness to palpation due to underlying neuropathy. Able to dorsiflex and plantarflex. Slightly able to pronate and supinate. ROM is at his baseline. Sensation diminished at baseline. Pedal pulse intact. Office Procedures Fracture Care Fracture Billing Code: Fracture Billing Code Assessment & Plan Assessment & Plan (1) Fracture of right ankle, lateral malleolus: Onset Date: ~11/28/23 Code(s): S82.61XA - Displaced fracture of lateral malleolus of right fibula, initial encounter for closed fracture Qualifiers: Encounter type: initial encounter Fracture alignment: nondisplaced Fracture type: closed Qualified Code(s): S82.64XA - Nondisplaced fracture of lateral malleolus of right fibula, initial encounter for closed fracture Plan Mr. Sanchez is a 73-year-old male who presents in the office today, as a new patient, for an evaluation of right ankle pain. The patient was evaluated by his PCP on 11/30/2023 status post getting off the couch on 11/28/2023 when he landed on his right foot incorrectly. X-rays were obtained. He was instructed to not bear weight on the right lower extremity and a referral was made for Orthopedics. While in the office today he reports he was sitting on the floor and when he went to get up he fell backwards due to his peripheral neuropathy. He states when he fell he heard multiple pops in his right ankle. He reports applying ice and elevating the ankle after the injury. He states his pain and edema increased over time. He confirms being seen by his PCP who gave him crutches, but he has been using a cane instead. He confirms the use of Tylenol and Ibuprofen. Patient has a significant medical history of peripheral neuropathy. The patient was placed into a tall walking boot, off the shelf, while in the office today. He may weight bear as tolerated. Follow up will be in 4 weeks with repeat x-rays, or sooner if needed. X-rays of the right ankle, obtained on 11/30/2023, revealed: There is oblique fracture distal fibula without displacement. There is moderate lateral malleolar soft tissue swelling. No additional fracture seen. Ankle mortise and subtalar joints are normal. There is a small calcaneal heel enthesophyte. Patient Instructions: Scribed by Rere Corral senior medical technologist, for Paula Bianchi PA-C on 12/03/2023 at 7:53 am, EST. Coding Level of Care Code New Pt Level 4 (46560) Diagnoses Closed nondisplaced fracture of lateral malleolus of right fibula, initial encounter S82.64XA Encounter type: initial encounter Fracture alignment: nondisplaced Fracture type: closed CPT Codes Fracture Care - Fracture Billing Code: Fracture Billing Code ([id number])
[2023-12-03 08:04] VITALS: BMI 29.5
== END 2023-12-03 09:15 | disposition home or self-care (01) ==
PROVIDERS: PCP Internal Medicine; Visit Provider Physician Assistant
DX: S82.64XA Nondisplaced fracture of lateral malleolus of right fibula, initial encounter for closed fracture (principal)
CPT/HCPCS: 99203; 99213

== ENCOUNTER → 2023-12-03 07:52 | Outpatient (BNVA) | payer MEDICARE, SELFPAY | PROVIDERS: PCP Internal Medicine; Visit Provider Physician Assistant | DX: S82.64XA Nondisplaced fracture of lateral malleolus of right fibula, initial encounter for closed fracture (principal); G62.9 Polyneuropathy, unspecified | CPT/HCPCS: 99202 ==

== ENCOUNTER 2024-01-01 09:32 | Outpatient (REF) | payer MEDICARE, SELFPAY ==
--- NOTE | ~2024-01-01 | XR_ITS ---
EXAMINATION: XR ANKLE, RIGHT CLINICAL INFORMATION: Pain in unspecified ankle joint of unspecified foot. COMPARISON: Radiographs of the right ankle of November 30, 2023. TECHNIQUE: 3 views of the right ankle. FINDINGS: Redemonstration of an oblique, nondisplaced fracture of the distal fibula. Fracture line is still visible, but less conspicuous, suggesting some interval bridging callus formation. Persistent ankle joint effusion and soft tissue swelling. Moderate plantar calcaneal spur. XR/XR ankle RT min 3V IMPRESSION: Redemonstration of an oblique, nondisplaced fracture of the distal fibula. Fracture line is still visible, but less conspicuous, suggesting some interval bridging callus formation.
== END 2024-01-01 09:33 | disposition home or self-care (01) ==
LOC: HO.HOSX 09:32
PROVIDERS: Visit Provider Physician Assistant
DX: S82.64XD Nondisplaced fracture of lateral malleolus of right fibula, subsequent encounter for closed fracture with routine healing (principal); M25.571 Pain in right ankle and joints of right foot; X58.XXXD Exposure to other specified factors, subsequent encounter
CPT/HCPCS: 73610; 99212

== ENCOUNTER 2024-01-01 09:42 | Outpatient (AMB) | payer MEDICARE, MEDICAID, SELFPAY ==
--- NOTE | 2024-01-01 09:44 | A.OFFVIS_ITS ---
Intake Vital Signs 01/01/24 09:47 Height 5 ft 8 in Weight 194 lb BMI 29.5 Intake Visit Reasons: OV - Rt lateral malleolus fx, DOI 11/29/23 Intake Note: Teddy is a 73 year old male who presents today for a follow up visit s/p Right lateral malleolus fx, DOI 11/29/23. He reports he is feeling better. Having some mild pain, however he has been taking Tylenol to help him with the pain. Allergies amoxicillin Adverse Reaction (Unknown, Verified 01/01/24 09:50) diarrhea HPI OV - Rt lateral malleolus fx, DOI 11/29/23 HPI Details 73-year-old male who presents in the off ice today for a follow of a right ankle lateral malleolus fracture, which occurred on 11/28/2023 status post landing on his right foot incorrectly when getting off the couch. I last saw the patient in the office on 12/03/2023 at which time he was placed in a tall walking boot and instructed to weight bear as tolerated. While in the office today the patient reports he is feeling better, but does have some mild pain. He confirms taking Tylenol for this, which gives him relief. [facility] Medical History Closed right fibular fracture Smoker unmotivated to quit Not ready to quit smoking Erectile dysfunction Depression Essential hypertension Dyslipidemia Acquired hypothyroidism Hypertrophic obstructive cardiomyopathy Surgical History Hx of colonoscopy History of surgery History of tonsillectomy Family History Mother CAD (coronary artery disease) CVD (cardiovascular disease) Sister No problems noted. Son Mental health disorder Daughter No problems noted. Social History Housing: Apartment Alcohol intake: current Patient Tobacco Use Status: Current everyday Tobacco user Tobacco use type: Cigarette Cigarette Packs Per Day: 0 Cigarettes Per Day: 10 e-Cigarette/Vaping Use: Never Used Substance Use Type: Marijuana Current occupational status: retired Cognitive needs: No Hearing needs: No Vision needs: Yes Review of Systems Const All systems reviewed & are unremarkable except as noted in HPI and below Physical Exam Vital Signs: BMI result Body Mass Index 29.5 Const General: cooperative, healthy appearing and no acute distress Orientation/consciousness: patient oriented x3 Resp Effort & Inspection: normal respiratory effort and able to speak in complete sentences Cardio Rate: regular rate Peripheral pulses: Peripheral pulses 2+ throughout GI Palpation (GI): Soft to palpation Skin General skin exam: no rashes or lesions noted Lesions: no lesions Rashes: no rashes Neuro General: patient oriented x3 Extrem Other: Right ankle: Lateral malleolar edema. No tenderness to palpation due to underlying neuropathy. Able to dorsiflex and plantarflex. Slightly able to pronate and supinate but is at his baseline prior to his injury. ROM is at his baseline. Sensation diminished at baseline. Pedal pulse intact. Assessment & Plan Assessment & Plan (1) Fracture of right ankle, lateral malleolus: Onset Date: ~11/28/23 Code(s): S82.61XA - Displaced fracture of lateral malleolus of right fibula, initial encounter for closed fracture Qualifiers: Encounter type: initial encounter Fracture alignment: nondisplaced Fracture type: closed Qualified Code(s): S82.64XA - Nondisplaced fracture of lateral malleolus of right fibula, initial encounter for closed fracture Plan Mr. Sanchez is a 73-year-old male who presents in the office today for a follow of a right ankle lateral malleolus fracture, which occurred on 11/28/2023 status post landing on his right foot incorrectly when getting off the couch. I last saw the patient in the office on 12/03/2023 at which time he was placed in a tall walking boot and instructed to weight bear as tolerated. While in the office today the patient reports he is feeling better, but does have some mild pain. He confirms taking Tylenol for this, which gives him relief. Patient presents today without the tall walking bout. He is weight bearing as tolerated with the use of a cane. He stopped using his tall walking boot 3 days ago, 12/29/2023. Although this may be a bit early based on the healing noted on x-rays. I would recommend he continue with the boot but he would like to remain out of the boot in a supportive walking shoe. He reports that he has no pain or concerns with his motion. He actually reports an increase in his ROM after his injury. Follow up will be in 4 weeks with repeat x-rays, or sooner if needed. X-rays of the right ankle which were obtained while in the office today and were reviewed by me, Paula Bianchi PA-C, revealed routine healing of a lateral malleolus fracture. Orders: Orders XR ankle RT min 3V Today M25.579 - Pain in unspecified ankle and joints of unspecified foot Patient Instructions: Scribed by Rere Corral medical interpreter, for Paula Bianchi PA-C on 01/01/2024 at 9:44 am, EST. Coding Level of Care Code Global (34177) Diagnoses Closed nondisplaced fracture of lateral malleolus of right fibula, initial encounter S82.64XA Encounter type: initial encounter Fracture alignment: nondisplaced Fracture type: closed
[2024-01-01 09:47] VITALS: BMI 29.5
== END 2024-01-01 10:39 | disposition home or self-care (01) ==
PROVIDERS: PCP Internal Medicine; Visit Provider Physician Assistant
DX: S82.64XA Nondisplaced fracture of lateral malleolus of right fibula, initial encounter for closed fracture (principal)
CPT/HCPCS: 99213

== ENCOUNTER 2024-01-29 08:00 | Outpatient (AMB) | payer MEDICARE, MEDICAID, SELFPAY ==
--- NOTE | 2024-01-29 08:11 | MHC.OFFVIS ---
Intake Vital Signs 01/29/24 08:14 Height 5 ft 8 in Weight 194 lb BMI 29.5 Intake Visit Reasons: OV - Rt lateral malleolus fx, DOI 11/29/23 Intake Note: Teddy is a 73 year old male who presents today for a follow up visit s/p Right lateral malleolus fx, DOI 11/29/23. He reports he is doing great. Having some mild discomfort, but it is very little. Allergies amoxicillin Adverse Reaction (Unknown, Verified 01/29/24 08:13) diarrhea HPI OV - Rt lateral malleolus fx, DOI 11/29/23 HPI Details 73-year-old male who presents in the office today for a follow of a right ankle lateral malleolus fracture, which occurred on 11/28/2023 status post landing on his right foot incorrectly when getting off the couch. I last saw the patient in the office on 01/01/2024. At that time he was encouraged to remain in the walking boot, however, patient declined for a supportive sneaker. While in the office today the patient reports he is doing great. He does reports very little discomfort. He states he is able to ambulate better then prior to the injury. [facility] Medical History Closed right fibular fracture Smoker unmotivated to quit Not ready to quit smoking Erectile dysfunction Depression Essential hypertension Dyslipidemia Acquired hypothyroidism Hypertrophic obstructive cardiomyopathy Surgical History Hx of colonoscopy History of surgery History of tonsillectomy Family History Mother CAD (coronary artery disease) CVD (cardiovascular disease) Sister No problems noted. Son Mental health disorder Daughter No problems noted. Social History Housing: Apartment Alcohol intake: current Patient Tobacco Use Status: Current everyday Tobacco user Tobacco use type: Cigarette Cigarette Packs Per Day: 0 Cigarettes Per Day: 10 e-Cigarette/Vaping Use: Never Used Substance Use Type: Marijuana Current occupational status: retired Cognitive needs: No Hearing needs: No Vision needs: Yes Review of Systems Const All systems reviewed & are unremarkable except as noted in HPI and below Physical Exam Vital Signs: BMI result Body Mass Index 29.5 Const General: cooperative, healthy appearing and no acute distress Resp Effort & Inspection: normal respiratory effort and able to speak in complete sentences Cardio Rate: regular rate Peripheral pulses: Peripheral pulses 2+ throughout GI Palpation (GI): Soft to palpation Skin Lesions: no lesions Rashes: no rashes Extrem Other: Right ankle: Lateral malleolar edema. No tenderness to palpation due to underlying neuropathy. Able to dorsiflex and plantarflex. Slightly able to pronate and supinate but is at his baseline prior to his injury. ROM is at his baseline. Sensation diminished at baseline. Pedal pulse intact. Assessment & Plan Assessment & Plan (1) Fracture of right ankle, lateral malleolus: Onset Date: ~11/28/23 Code(s): S82.61XA - Displaced fracture of lateral malleolus of right fibula, initial encounter for closed fracture Qualifiers: Encounter type: initial encounter Fracture alignment: nondisplaced Fracture type: closed Qualified Code(s): S82.64XA - Nondisplaced fracture of lateral malleolus of right fibula, initial encounter for closed fracture Plan Mr. Sanchez is a 73-year-old male who presents in the office today for a follow of a right ankle lateral malleolus fracture, which occurred on 11/28/2023 status post landing on his right foot incorrectly when getting off the couch. I last saw the patient in the office on 01/01/2024. At that time he was encouraged to remain in the walking boot, however, patient declined for a supportive sneaker. While in the office today the patient reports he is doing great. He does reports very little discomfort. He states he is able to ambulate better then prior to the injury. Patient will return to normal activities as tolerated. Follow up will be PRN, or sooner if needed. X-rays of the right ankle which were obtained while in the office today and were reviewed by me, Paula Bianchi PA-C, revealed routine healing of a right lateral malleolus fracture. Orders: Orders XR ankle RT min 3V Today M25.579 - Pain in unspecified ankle and joints of unspecified foot Patient Instructions: Scribed by Rere Corral director medical economics, for Paula Bianchi PA-C on 01/29/2024 at 8:05 am, EST. Coding Level of Care Code Global (33990) Diagnoses Closed nondisplaced fracture of lateral malleolus of right fibula, initial encounter S82.64XA Encounter type: initial encounter Fracture alignment: nondisplaced Fracture type: closed
[2024-01-29 08:14] VITALS: BMI 29.5
== END 2024-01-29 08:20 | disposition home or self-care (01) ==
LOC: HO.HOS 08:00
PROVIDERS: PCP Internal Medicine; Visit Provider Physician Assistant
DX: S82.64XA Nondisplaced fracture of lateral malleolus of right fibula, initial encounter for closed fracture (principal)
CPT/HCPCS: 99213

== ENCOUNTER 2024-01-29 09:44 | Outpatient (REF) | payer MEDICARE, SELFPAY ==
--- NOTE | ~2024-01-29 | XR_ITS ---
EXAMINATION: XR ANKLE, RIGHT CLINICAL INFORMATION: Right ankle pain. COMPARISON: Right ankle radiographs dated 11/30/2023 and 01/01/2024. TECHNIQUE: AP, lateral, and mortise views of the right ankle. FINDINGS: Redemonstration of an oblique distal fibular fracture in unchanged anatomic alignment with increased new bone/callus formation when compared to the prior examinations. The ankle mortise is maintained. No new fracture or dislocation. No talar osteochondral lesion. Lateral subcutaneous edema. Plantar calcaneal spur. XR/XR ankle RT min 3V IMPRESSION: Distal fibular fracture in unchanged anatomic alignment with increased new bone/callus formation when compared to the prior examinations. Lateral subcutaneous edema.
== END 2024-01-29 09:45 | disposition home or self-care (01) ==
LOC: HO.HOSX 09:44
PROVIDERS: Visit Provider Physician Assistant
DX: M25.571 Pain in right ankle and joints of right foot (principal)
CPT/HCPCS: 73610; 99212

== ENCOUNTER 2024-02-18 10:25 | Outpatient (REF) | payer MEDICARE, SELFPAY ==
[2024-02-18 14:16] LABS: Alanine Aminotransferase 17 U/L (0-40); Anion Gap 9 (12-20); Aspartate Amino Transferase 20 U/L (5-37); Blood Urea Nitrogen 13 mg/dL (9-16); Calcium 9.5 mg/dL (8.4-10.2); Carbon Dioxide 29 mmol/L (22-29); Chloride 106 mmol/L (96-108); Cholesterol 181 mg/dL (<200); Estimated Glomerular Filt Rate > 60; Free T4 (Free Thyroxine) 0.95 ng/dL (0.71-1.85); Glucose Fasting 84 mg/dL (60-99); HDL Cholesterol 45 mg/dL (>40); LDL Cholesterol Calculated 115 mg/dL (<100); Potassium 4.7 mmol/L (3.3-5.1); Sodium 139 mmol/L (135-145); Thyroid Stimulating Hormone 2.17 uIU/mL (0.32-4.0); Triglycerides 105 mg/dL (<150); Vitamin D 25-OH Total 52.9 ng/mL (>30)
[2024-02-18 14:27] LABS: PSA,Total (Free>4and<10) 3.83 ng/mL (0.00-4.00)
[2024-02-18 14:42] LABS: Folate 10.6 ng/mL (> or = 4.0)
[2024-02-18 21:04] LABS: Vitamin B12 292 pg/mL (200-900)
== END 2024-02-18 10:26 | disposition home or self-care (01) ==
LOC: HO.HMGCLDS 10:25
PROVIDERS: PCP Internal Medicine; Visit Provider Internal Medicine
DX: Z12.5 Encounter for screening for malignant neoplasm of prostate (principal); I10 Essential (primary) hypertension; E78.5 Hyperlipidemia, unspecified; E03.9 Hypothyroidism, unspecified; I42.1 Obstructive hypertrophic cardiomyopathy; F32.9 Major depressive disorder, single episode, unspecified; Z86.39 Personal history of other endocrine, nutritional and metabolic disease
CPT/HCPCS: 36415; 80048; 80061; 82306; 82607; 82746; 84153; 84439; 84443; 84450; 84460

== ENCOUNTER 2024-02-23 08:48 | Outpatient (AMB) | payer MEDICARE, MEDICAID, SELFPAY ==
--- NOTE | 2024-02-23 09:08 | A.OFFPC_ITS ---
Vital Signs 02/23/24 09:09 Height 5 ft 8 in Weight 193 lb BMI 29.3 BP 132/60 Blood Pressure Location Lt brachial Position Sitting Pulse 66 Pulse Source Pulse Oximeter Pulse Oximetry (%) 98 Oxygen Delivery Method Room Air Intake Visit Reasons: 6 month fu Intake Note: Pt is here today for his 6 months f/u labs Allergies amoxicillin Adverse Reaction (Unknown, Verified 02/23/24 09:12) diarrhea Medication List - Last Reconciled 02/23/24 by Jessica Berry MD atorvastatin 10 mg PO DAILY gabapentin 400 mg (1/2 x 800 mg) PO BID 90 days levothyroxine 100 mcg PO DAILY lidocaine 4% 1 appl topical BID venlafaxine ER 75 mg PO DAILY 90 days venlafaxine ER 150 mg PO DAILY verapamil ER 240 mg PO DAILY Tobacco use date assessed: 02/23/24 Fall risk assessment: 1 Fall in past year Last assessed Fall Risk: 02/23/24 Dental Screening Dental Screen Date: 02/23/24 Did you have a dental visit in the last 12 months?: No Was dental information given to patient?: Patient has dentist HPI 6 month fu HPI Details 73-year-old male here today follow-up on his lipids, thyroidism, and hypertension. He has with taking his medications but has been as active as he was during the summertime . Latest fasting labs showed lipids higher than last check, but still within normal limits. Has been feeling well with no complaints at present time [facility] Medical History Closed right fibular fracture Smoker unmotivated to quit Not ready to quit smoking Erectile dysfunction Depression Essential hypertension Dyslipidemia Acquired hypothyroidism Hypertrophic obstructive cardiomyopathy Surgical History Hx of colonoscopy History of surgery History of tonsillectomy Family History Mother CAD (coronary artery disease) CVD (cardiovascular disease) Sister No problems noted. Son Mental health disorder Daughter No problems noted. Social History Housing: Apartment Alcohol intake: current Patient Tobacco Use Status: Current everyday Tobacco user Tobacco use type: Cigarette Cigarette Packs Per Day: 0 Cigarettes Per Day: 10 e-Cigarette/Vaping Use: Never Used Substance Use Type: Marijuana Current occupational status: retired Cognitive needs: No Hearing needs: No Vision needs: Yes Questionnaire Thrive Questionnaire Date Thrive assessed: 11/30/23 AUDIT C Alcohol Use Questionnaire (AUDIT-C) 1. How often do you have a drink containing alcohol?: Never 3. How often do you have six or more drinks on one occasion?: Never Total Score: 0 GWENDOLYN-7 AMB Questionnaire GWENDOLYN-7 Date GWENDOLYN - 7 assessed: 11/30/23 Source: Developed by Drs. Lan Jimenez, Merry Doll, Abdi Serna and colleagues, with an educational andrei from [employer]. Review of Systems Const All systems reviewed & are unremarkable except as noted in HPI and below ENT Reports no additional complaints and Reports Normal hearing present Card Denies chest pain and Denies dyspnea Resp Denies chest congestion, Denies cough and Denies dyspnea GI Denies abdominal pain, Denies change in bowel habits and Denies heartburn Reports no additional complaints Musc Reports no additional complaints Neuro Reports no additional complaints and Reports Normal hearing present Psych Reports no additional complaints Endo Reports no additional complaints Orestes/Lymph Reports no additional complaints Physical exam (Primary Care) Vital Signs: Last Vital Signs Pulse 66 02/23/24 09:09 BP 132/60 02/23/24 09:09 Pulse Ox 98 02/23/24 09:09 Oxygen Delivery Method Room Air 02/23/24 09:09 BMI result Body Mass Index 29.3 Tobacco/Smoking Status: Tobacco use Status Tobacco use date assessed 02/23/24 02/23/24 09:13 Patient Tobacco Use Status Current everyday Tobacco 02/23/24 09:09 Tobacco use type Cigarette 02/23/24 09:09 e-Cigarette/Vaping Use Never Used 02/23/24 09:09 Thrive Assessment: Date of Thrive Assessment Date Thrive assessed 11/30/23 02/23/24 09:09 Advance Care Planning discussion: Completed/Scanned Date of discussion: 02/23/24 Who was present: Patient Forms completed: Health Care Proxy Time spent: 16-45 minutes Actual minutes spent: 16 Const General: no acute distress and Physically active Orientation/consciousness: patient oriented x3 HENMT Mouth: Normal oral and palatal mucosa present and oropharynx normal Eyes General: appearance normal, both eyes and all related structures Conjunctivae: conjunctivae normal Pupils: Equal, round and reactive pupils present EOM: EOMs intact bilaterally Neck Neck: Yes full ROM, Yes no lymphadenopathy and Yes supple Thyroid: Thyroid normal Chest Chest palpation & inspection: normal inspection of the chest Resp Effort & Inspection: normal respiratory effort and able to speak in complete sentences Auscultation: clear to auscultation bilaterally Cardio Rate: regular rate Rhythm: regular rhythm Heart sounds: S1 normal heart sound present and S2 normal heart sound present GI Inspection: Yes obesity Palpation (GI): Soft to palpation, nontender, no guarding and no masses Auscultation: normal bowel sounds Male General Exam: Yes normal external exam Back/Spine/Pelvis Back: No back tenderness Neuro General: patient oriented x3, gait normal, moves all extremities, Normal light touch and pain sensation, no focal motor deficits and CN's II-XI intact bilaterally Cranial nerves: Yes Equal, round and reactive pupils present and Yes Normal hearing present Cognition (Neuro): normal cognition Gait exam (Neuro): Normal gait present Extrem General: Yes full ROM, Yes no joint enlargement, Yes no clubbing, cyanosis or edema and Yes normal gait Psych Appearance: grossly normal Mental Status: mental status grossly normal Speech and movement: Normal speech and movement present Affect: normal affect Attitude: cooperative Thought process: Normal thought process present Results Reviewed Results Reviewed: Name: Teddy Sanchez Age/Sex: 73/M : 1950 Unit#: [id number] Attend Dr: Jessica Berry MD Re02/18/24 Status: DEP REF Location: [facility] Disch: SPEC : [id number] STEPHANIE: 02/18/24-1100 STATUS: COMP REQ : [id number] RECD: 02/18/24-[address]: Jessica Berry MD COMP: 02/18/241416 ENTERED: 02/18/24-[address]: ORDERED: Met Prof Fast, AST, ALT, Lipid Panel, Vitamin D 25-OH, Free T4, TSH Test Result Flag Reference Sodium 139 135-145 mmol/L Potassium 4.7 3.3-5.1 mmol/L CL 106 96-108 mmol/L CO2 29 22-29 mmol/L Gap 9 L 12-20 BUN 13 9-16 mg/dL Creat 0.81 0.5-1.4 mg/dL EGFR > 60 NOTE: For -[place] individuals, multiply the result by 1.210. Chronic Kidney Disease: Estimated GFR < 60 mL/min/1.73m2 Severe Kidney Disease: Estimated GFR < 15 mL/min/1.73m2 FBS 84 60-99 mg/dL CA 9.5 8.4-10.2 mg/dL AST (GOT) 20 5-37 U/L ALT (GPT) 17 0-40 U/L Triglyceride 105 <150 mg/dL Desirable Triglyceride: less than 150 mg/dL Borderline High Triglyceride 150-199 mg/dL High Triglyceride: 200-499 mg/dL Very High Triglyceride: greater than or equal to 5OO mg/dL Cholesterol 181 <200 mg/dL Desirable Cholesterol: less than 200 mg/dL Borderline High Cholesterol: 200-239 mg/dL High Cholesterol: greater than 239 mg/dL LDL Calculated 115 H <100 mg/dL Desirable LDL: less than 100 mg/dL Near Optimal/Above Optimal LDL: 110-129 mg/dL Borderline High LDL: 130-159 mg/dL High LDL: 160-189 mg/dL Very High LDL: greater than or equal to 190 mg/dL HDL 45 >40 mg/dL Desirable HDL: greater than 40 mg/dL Note: This HDL assay may give artificially low results in patients with liver disease. Vit D 25-OH Tot 52.9 >30 ng/mL Health Based Reference Values* < 20 ng/mL Deficient 20-30 ng/mL Insufficient > 30 ng/mL Sufficient *Belinda DOMINGUEZ. N Engl J Med. 2007;[id number]:[id number] Care must be taken in interpreting Vitamin D results from different laboratories and methodologies. Published data demonstrated that results from patients undergoing hemodialysis may show a negative bias when tested with various automated 25-OH vitamin D assays when compared to LC-MS/MS. When testing samples from patients whose predominant form of Vitamin D is Vitamin D2, such as patients receiving Vitamin D2 supplementation, results that are subtherapeutic should be confirmed with another method such as LC-MS/MS. Free T4 0.95 0.71-1.85 ng/dL TSH 3rd Gen. 2.17 0.32-4.0 uIU/mL TSH 3rd Generation ([facility]) Assessment and Plan Assessment & Plan (1) Acquired hypothyroidism: Code(s): E03.9 - Hypothyroidism, unspecified Plan: Continue with levothyroxine 100 mcg daily (2) Dyslipidemia: Code(s): E78.5 - Hyperlipidemia, unspecified Plan: Reviewed recent fasting lipid profile with patient with levels higher than last check but still within normal limits . Continue atorvastatin 10 mg daily , in addition to adherence to low-cholesterol diet and regular exercise, at least 30 minutes 3 to 4 times a week. Advised patient to make healthy food choices, eat more fruits, vegetables, whole grains, wild caught fish and low- fat dairy. Limit amount of meat and fried or fatty food products, as well as processed foods and fast foods. Follow-up scheduled with repeat fasting lipid panel in months. (3) Essential hypertension: Code(s): I10 - Essential (primary) hypertension Plan: Blood pressure at goal of less than 130/80. Continue with current medication. Reinforced importance of following a low sodium diet, getting regular exercise, and lowering stress levels. (4) Depression: Code(s): F32.9 - Major depressive disorder, single episode, unspecified Qualifiers: Active/Remission status: in full remission Depression Type: major depressive disorder Major depression recurrence: recurrent Qualified Code(s): F33.42 - Major depressive disorder, recurrent, in full remission Plan: Stable and controlled on venlafaxine (5) Smoker unmotivated to quit: Code(s): F17.200 - Nicotine dependence, unspecified, uncomplicated Orders: Orders Thyroid Stimulating Hormone 06/26/24 E03.9 - Hypothyroidism, unspecified, E78.5 - Hyperlipidemia, unspecified, F17.200 - Nicotine dependence, unspecified, uncomplicated, F33.42 - Major depressive disorder, recurrent, in full remission, I10 - Essential (primary) hypertension, Z72.0 - Tobacco use Free T4 (Free Thyroxine) 06/26/24 E03.9 - Hypothyroidism, unspecified, E78.5 - Hyperlipidemia, unspecified, F17.200 - Nicotine dependence, unspecified, uncomplicated, F33.42 - Major depressive disorder, recurrent, in full remission, I10 - Essential (primary) hypertension, Z72.0 - Tobacco use Alanine Aminotransferase 06/26/24 E03.9 - Hypothyroidism, unspecified, E78.5 - Hyperlipidemia, unspecified, F17.200 - Nicotine dependence, unspecified, uncomplicated, F33.42 - Major depressive disorder, recurrent, in full remission, I10 - Essential (primary) hypertension, Z72.0 - Tobacco use Lipid Panel 06/26/24 E03.9 - Hypothyroidism, unspecified, E78.5 - Hyperlipidemia, unspecified, F17.200 - Nicotine dependence, unspecified, uncomplicated, F33.42 - Major depressive disorder, recurrent, in full remission, I10 - Essential (primary) hypertension, Z72.0 - Tobacco use Aspartate Amino Transferase 06/26/24 E03.9 - Hypothyroidism, unspecified, E78.5 - Hyperlipidemia, unspecified, F17.200 - Nicotine dependence, unspecified, uncomplicated, F33.42 - Major depressive disorder, recurrent, in full remission, I10 - Essential (primary) hypertension, Z72.0 - Tobacco use Basic Metabolic Panel Fasting 06/26/24 E03.9 - Hypothyroidism, unspecified, E78.5 - Hyperlipidemia, unspecified, F17.200 - Nicotine dependence, unspecified, uncomplicated, F33.42 - Major depressive disorder, recurrent, in full remission, I10 - Essential (primary) hypertension, Z72.0 - Tobacco use PSA,Total (Free>4and<10) 06/26/24 E03.9 - Hypothyroidism, unspecified, E78.5 - Hyperlipidemia, unspecified, F17.200 - Nicotine dependence, unspecified, uncomplicated, F33.42 - Major depressive disorder, recurrent, in full remission, I10 - Essential (primary) hypertension, Z72.0 - Tobacco use Vitamin D 25-OH Total 06/26/24 E03.9 - Hypothyroidism, unspecified, E78.5 - Hyperlipidemia, unspecified, F17.200 - Nicotine dependence, unspecified, uncomplicated, F33.42 - Major depressive disorder, recurrent, in full remission, I10 - Essential (primary) hypertension, Z72.0 - Tobacco use Medications: Refilled atorvastatin Local fill 10 mg PO DAILY 90 tabs 3RF Coding Level of Care Code Est Pt Level 4 (10170) Diagnoses Acquired hypothyroidism E03.9 Dyslipidemia E78.5 Essential hypertension I10 Recurrent major depressive disorder, in full remission F33.42 Active/Remission status: in full remission Depression Type: major depressive disorder Major depression recurrence: recurrent Smoker unmotivated to quit F17.200 Additional Codes Vital Signs *Quality* - Advance Care Planning discussion: Completed/Scanned ([id number]) Vital Signs *Quality* - Time spent: 16-45 minutes ([id number])
[2024-02-23 09:09] VITALS: BP 132/60; PULSE 66; O2SAT 98; BMI 29.3
== END 2024-02-23 09:48 | disposition home or self-care (01) ==
PROVIDERS: PCP Internal Medicine; Visit Provider Internal Medicine
DX: E03.9 Hypothyroidism, unspecified (principal); E78.5 Hyperlipidemia, unspecified; I10 Essential (primary) hypertension; F33.42 Major depressive disorder, recurrent, in full remission; F17.200 Nicotine dependence, unspecified, uncomplicated; Z00.00 Encounter for general adult medical examination without abnormal findings
CPT/HCPCS: 1123F; 99214; 99497

== ENCOUNTER 2024-04-29 08:49 | Outpatient (AMB) | payer MEDICARE, MEDICAID, SELFPAY ==
--- NOTE | 2024-04-29 09:41 | MHC.PC.OV ---
Intake Visit Reasons: discuss quit smoking [phone] Allergies amoxicillin Adverse Reaction (Unknown, Verified 04/29/24 11:06) diarrhea Medication List - Last Reconciled 04/29/24 by Jessica Berry MD atorvastatin 10 mg PO DAILY gabapentin 400 mg (1/2 x 800 mg) PO BID 90 days levothyroxine 100 mcg PO DAILY lidocaine 4% 1 appl topical BID venlafaxine ER 75 mg PO DAILY 90 days venlafaxine ER 150 mg PO DAILY verapamil ER 240 mg PO DAILY Tobacco use date assessed: 04/29/24 Dental Screening Dental Screen Date: 02/23/24 HPI discuss quit smoking [phone] HPI Details 73-year-old male with hypertension, acquired hypothyroidism, history of hypertrophic obstructive cardiomyopathy, dyslipidemia, here today wanting to get help quitting smoking. He smokes at least 10 cigarettes a day, has tried hypnosis in the past which worked for r a year and a half , tried nicotine patch in the ', which helped temporarily,, and has tried Chantix which gave him a very bad headache, and does not want to try using it again. [facility] Medical History (Updated 04/29/24 @ 11:22 by Jessica Berry MD) History of adenomatous polyp of colon History of ankle fracture History of fibula fracture Cigarette smoker motivated to quit Closed right fibular fracture Erectile dysfunction Depression Essential hypertension Dyslipidemia Acquired hypothyroidism Hypertrophic obstructive cardiomyopathy Surgical History Hx of colonoscopy History of surgery History of tonsillectomy Family History Mother CAD (coronary artery disease) CVD (cardiovascular disease) Sister No problems noted. Son Mental health disorder Daughter No problems noted. Social History Housing: Apartment Alcohol intake: current Patient Tobacco Use Status: Current everyday Tobacco user Tobacco use type: Cigarette Cigarette Packs Per Day: 0 Cigarettes Per Day: 10 e-Cigarette/Vaping Use: Never Used Substance Use Type: Marijuana Current occupational status: retired Cognitive needs: No Hearing needs: No Vision needs: Yes Questionnaire Thrive Questionnaire Date Thrive assessed: 11/30/23 GWENDOLYN-7 AMB Questionnaire GWENDOLYN-7 Date GWENDOLYN - 7 assessed: 11/30/23 Source: Developed by Drs. Lan Jimenez, Merry Doll, Abdi Serna and colleagues, with an educational andrei from [employer]. Review of Systems Const All systems reviewed & are unremarkable except as noted in HPI and below ENT Reports no additional complaints and Reports Normal hearing present Card Denies chest pain and Denies dyspnea Resp Denies chest congestion, Denies cough and Denies dyspnea GI Denies abdominal pain, Denies change in bowel habits and Denies heartburn Reports no additional complaints Musc Reports no additional complaints Skin/Breast Denies lesions and Denies rash Neuro Reports no additional complaints and Reports Normal hearing present Psych Reports no additional complaints Endo Reports no additional complaints Orestes/Lymph Reports no additional complaints Aller/Immun Reports no additional complaints Physical exam (Primary Care) Tobacco/Smoking Status: Tobacco use Status Tobacco use date assessed 04/29/24 04/29/24 09:43 Patient Tobacco Use Status Current everyday Tobacco 04/29/24 09:43 Tobacco use type Cigarette 04/29/24 09:43 e-Cigarette/Vaping Use Never Used 04/29/24 09:43 Thrive Assessment: Date of Thrive Assessment Date Thrive assessed 11/30/23 04/29/24 09:43 Neuro Cranial nerves: Yes Normal hearing present Telehealth Telehealth Telehealth Platform: [place] Location of provider rendering services: practice address Location of patient: address on file Patient Identification confirmed using: Name, : Yes Telehealth method: video Patient verbally consented to treatment: Yes Patient verbally consented to billing insurance company: Yes Patient informed of any privacy concerns related to visit: Yes Minutes spent on Phone/Video with Pt.: 15 Assessment and Plan Assessment & Plan (1) Cigarette smoker motivated to quit: Code(s): F17.210 - Nicotine dependence, cigarettes, uncomplicated Plan: Discussed options for smoking cessation with medications. Pt wishes to try nicotine patch. Pt advised to apply the nicotine patch as directed on cigarette quit day. Discussed common side effects, and strongly advised not to smoke while using the patch, advised to apply it 1st thing in the morning, rotate sites of application and remove it at night before going to bed. Follow up in office 4 weeks Medications: New nicotine 1 patch transdermal DAILY 28 ea 0RF F17.210 - Nicotine dependence, cigarettes, uncomplicated Coding Level of Care Code Est Pt Level 3 (27876) Diagnoses Cigarette smoker motivated to quit F17.210
== END 2024-04-29 11:51 | disposition home or self-care (01) ==
LOC: HO.HMGC 08:49
PROVIDERS: PCP Internal Medicine; Visit Provider Internal Medicine
DX: F17.210 Nicotine dependence, cigarettes, uncomplicated (principal)
CPT/HCPCS: 99213

== ENCOUNTER 2024-06-03 08:29 | Outpatient (AMB) | payer MEDICARE, MEDICAID, SELFPAY ==
--- NOTE | 2024-06-03 08:40 | A.OFFPC_ITS ---
Intake Visit Reasons: discuss quit smoking [phone] Allergies amoxicillin Adverse Reaction (Unknown, Verified 06/03/24 09:31) diarrhea Medication List - Last Reconciled 06/03/24 by Jessica Berry MD atorvastatin 10 mg PO DAILY gabapentin 400 mg (1/2 x 800 mg) PO BID 90 days levothyroxine 100 mcg PO DAILY lidocaine 4% 1 appl topical BID nicotine apply 1-21 mg NICOTINE PATCH daily for 28 days; follow with 1-14 mg PATCH daily for 14 days, then 1-7mg PATCH daily for 14 days transdermal venlafaxine ER 75 mg PO DAILY 90 days venlafaxine ER 150 mg PO DAILY verapamil ER 240 mg PO DAILY Tobacco use date assessed: 04/29/24 Fall risk assessment: No Falls in past year Last assessed Fall Risk: 06/03/24 Dental Screening Dental Screen Date: 02/23/24 HPI discuss quit smoking [phone] HPI Details 73-year-old male here today for follow-u p on his smoking cessation. He was prescribed bupropion but this was not covered by his insurance and instead went to the nicotine patches. He smokes half a pack a day has been using the nicotine patch 21 mg daily and has been taking it off at night. He does admit that he would sometimes sheet and removed the patch and smoke. He has had 4 cigarette days in the past 3 weeks, however it does seem to decrease his craving for cigarettes. [facility] Medical History History of adenomatous polyp of colon History of ankle fracture History of fibula fracture Cigarette smoker motivated to quit Closed right fibular fracture Erectile dysfunction Depression Essential hypertension Dyslipidemia Acquired hypothyroidism Hypertrophic obstructive cardiomyopathy Surgical History Hx of colonoscopy History of surgery History of tonsillectomy Family History Mother CAD (coronary artery disease) CVD (cardiovascular disease) Sister No problems noted. Son Mental health disorder Daughter No problems noted. Social History Housing: Apartment Alcohol intake: current Patient Tobacco Use Status: Current everyday Tobacco user Tobacco use type: Cigarette Cigarette Packs Per Day: 0 Cigarettes Per Day: 10 e-Cigarette/Vaping Use: Never Used Substance Use Type: Marijuana Current occupational status: retired Cognitive needs: No Hearing needs: No Vision needs: Yes Questionnaire Thrive Questionnaire Date Thrive assessed: 11/30/23 GWENDOLYN-7 AMB Questionnaire GWENDOLYN-7 Date GWENDOLYN - 7 assessed: 11/30/23 Source: Developed by Drs. Lan Jimenez, Merry Doll, Abdi Serna and colleagues, with an educational andrei from [employer]. Review of Systems Const All systems reviewed & are unremarkable except as noted in HPI and below ENT Reports no additional complaints Card Denies chest pain and Denies dyspnea Resp Denies chest congestion, Denies cough and Denies dyspnea GI Denies abdominal pain, Denies change in bowel habits and Denies heartburn Reports no additional complaints Musc Reports no additional complaints Skin/Breast Denies lesions and Denies rash Neuro Reports no additional complaints Psych Reports no additional complaints Endo Reports no additional complaints Orestes/Lymph Reports no additional complaints Aller/Immun Reports no additional complaints Physical exam (Primary Care) Tobacco/Smoking Status: Tobacco use Status Tobacco use date assessed 04/29/24 06/03/24 08:40 Patient Tobacco Use Status Current everyday Tobacco 06/03/24 08:40 Tobacco use type Cigarette 06/03/24 08:40 e-Cigarette/Vaping Use Never Used 06/03/24 08:40 Thrive Assessment: Date of Thrive Assessment Date Thrive assessed 11/30/23 06/03/24 08:40 Telehealth Telehealth Telehealth Platform: [employer] Location of provider rendering services: practice address Location of patient: address on file Patient Identification confirmed using: Name, : Yes Telehealth method: video Patient verbally consented to treatment: Yes Patient verbally consented to billing insurance company: Yes Patient informed of any privacy concerns related to visit: Yes Minutes spent on Phone/Video with Pt.: 15 Assessment and Plan Assessment & Plan (1) Cigarette smoker motivated to quit: Code(s): F17.210 - Nicotine dependence, cigarettes, uncomplicated Plan: Continue on nicotine patches but decrease dose now to 14 mg daily, remove at night, rotate sites of use, do not smoke when using the patch. See him back for follow-up in a month Coding Level of Care Code Tele Est Pt Level 3 (30767) Diagnoses Cigarette smoker motivated to quit F17.210
== END 2024-06-03 13:31 | disposition home or self-care (01) ==
LOC: HO.HMGC 08:29
PROVIDERS: PCP Internal Medicine; Visit Provider Internal Medicine
DX: F17.210 Nicotine dependence, cigarettes, uncomplicated (principal)
CPT/HCPCS: 99213

== ENCOUNTER 2024-07-15 07:54 | Outpatient (REF) | payer MEDICARE, OTHER, SELFPAY ==
[2024-07-15 10:30] LABS: Alanine Aminotransferase 16 U/L (0-40); Anion Gap 9 (12-20); Aspartate Amino Transferase 20 U/L (5-37); Blood Urea Nitrogen 12 mg/dL (9-16); Carbon Dioxide 27 mmol/L (22-29); Chloride 107 mmol/L (96-108); Cholesterol 168 mg/dL (<200); Estimated Glomerular Filt Rate > 60; Glucose Fasting 91 mg/dL (60-99); HDL Cholesterol 40 mg/dL (>40); LDL Cholesterol Calculated 107 mg/dL (<100); Potassium 4.3 mmol/L (3.3-5.1); Sodium 139 mmol/L (135-145); Triglycerides 108 mg/dL (<150)
[2024-07-15 10:57] LABS: Free T4 (Free Thyroxine) 0.84 ng/dL (0.71-1.85); Thyroid Stimulating Hormone 4.82 uIU/mL (0.32-4.0); Vitamin D 25-OH Total 45.1 ng/mL (>30)
[2024-07-15 11:04] LABS: PSA,Total (Free>4and<10) 3.36 ng/mL (0.00-4.00)
== END 2024-07-15 07:55 | disposition home or self-care (01) ==
LOC: HO.HMGCLDS 07:54
PROVIDERS: PCP Internal Medicine; Visit Provider Internal Medicine
DX: F33.42 Major depressive disorder, recurrent, in full remission (principal); I10 Essential (primary) hypertension; E78.5 Hyperlipidemia, unspecified; E03.9 Hypothyroidism, unspecified; Z72.0 Tobacco use; Z12.5 Encounter for screening for malignant neoplasm of prostate
CPT/HCPCS: 36415; 80048; 80061; 82306; 84153; 84439; 84443; 84450; 84460

== ENCOUNTER 2024-07-18 08:09 | Outpatient (AMB) | payer MEDICARE, MEDICAID, SELFPAY ==
[2024-07-18 08:12] VITALS: BP 130/80; PULSE 63; O2SAT 97
--- NOTE | 2024-07-18 08:12 | A.OFFPC_ITS ---
Vital Signs 07/18/24 08:12 Height 5 ft 8 in Weight 197 lb BMI 30.0 BP 130/80 Blood Pressure Location Lt brachial Position Sitting Pulse 63 Pulse Source Pulse Oximeter Pulse Oximetry (%) 97 Oxygen Delivery Method Room Air Intake Visit Reasons: F/U lipid thyroid depression lab Intake Note: Pt is here today for his lipids,thyriod and depression Allergies amoxicillin Adverse Reaction (Unknown, Verified 07/18/24 08:17) diarrhea Medication List - Last Reconciled 07/18/24 by Jessica Berry MD atorvastatin 10 mg PO DAILY gabapentin 400 mg (1/2 x 800 mg) PO BID 90 days levothyroxine 100 mcg PO DAILY lidocaine 4% 1 appl topical BID venlafaxine ER 75 mg PO DAILY 90 days venlafaxine ER 150 mg PO DAILY verapamil ER 240 mg PO DAILY Tobacco use date assessed: 07/18/24 Fall risk assessment: 1 Fall in past year Last assessed Fall Risk: 07/18/24 Dental Screening Dental Screen Date: 03/02/24 Did you have a dental visit in the last 12 months?: Yes Did you have a dental problem in the last 6 months where you did not have access to dental care?: No Was dental information given to patient?: Patient has dentist HPI F/U lipid thyroid depression lab HPI Details 73 year-old male with hypertension, acqu ired hypothyroidism, history of hypertrophic obstructive cardiomyopathy, dyslipidemia, and depression here for a follow up. He has been feeling well, with no complaints of any chest pain no lightheadedness, no shortness of breath on exertion. Patient however is back to smoking again. Was doing well on the patches but had a stressful summer, with several friends dying suddenly. He is smoking at least 10 cigarettes a day but not ready to quit as of yet he does have the nicotine patches at home to use start using when he is ready. [facility] Medical History History of adenomatous polyp of colon History of ankle fracture History of fibula fracture Closed right fibular fracture Erectile dysfunction Depression Essential hypertension Dyslipidemia Acquired hypothyroidism Hypertrophic obstructive cardiomyopathy Surgical History Hx of colonoscopy History of surgery History of tonsillectomy Family History Mother CAD (coronary artery disease) CVD (cardiovascular disease) Sister No problems noted. Son Mental health disorder Daughter No problems noted. Social History Housing: Apartment Alcohol intake: current Patient Tobacco Use Status: Current everyday Tobacco user Tobacco use type: Cigarette Cigarette Packs Per Day: 0 Cigarettes Per Day: 10 e-Cigarette/Vaping Use: Never Used Substance Use Type: Marijuana Current occupational status: retired Cognitive needs: No Hearing needs: No Vision needs: Yes Questionnaire Thrive Questionnaire Date Thrive assessed: 11/30/23 GWENDOLYN-7 AMB Questionnaire GWENDOLYN-7 Date GWENDOLYN - 7 assessed: 11/30/23 Source: Developed by Drs. Lan Jimenez, Merry Doll, Abdi Serna and colleagues, with an educational andrei from [employer]. Review of Systems Const Reports no additional complaints Eyes Denies change in vision ENT Reports no additional complaints and Reports Normal hearing present Card Denies chest pain and Denies dyspnea Resp Denies chest congestion, Denies cough and Denies dyspnea GI Denies abdominal pain, Denies change in bowel habits and Denies heartburn Reports no additional complaints Musc Reports no additional complaints Skin/Breast Denies lesions and Denies rash Neuro Reports no additional complaints and Reports Normal hearing present Psych Reports no additional complaints Endo Reports no additional complaints Orestes/Lymph Reports no additional complaints Aller/Immun Reports no additional complaints Physical exam (Primary Care) Vital Signs: Last Vital Signs BP 140/80 H 07/18/24 08:12 BMI result Body Mass Index 30.0 Tobacco/Smoking Status: Tobacco use Status Tobacco use date assessed 04/29/24 06/03/24 08:40 Patient Tobacco Use Status Current everyday Tobacco 06/03/24 08:40 Tobacco use type Cigarette 06/03/24 08:40 e-Cigarette/Vaping Use Never Used 06/03/24 08:40 Thrive Assessment: Date of Thrive Assessment Date Thrive assessed 11/30/23 06/03/24 08:40 Const General: no acute distress and Physically active Orientation/consciousness: patient oriented x3 HENMT Mouth: Normal oral and palatal mucosa present and oropharynx normal Eyes General: appearance normal, both eyes and all related structures Conjunctivae: conjunctivae normal Pupils: Equal, round and reactive pupils present EOM: EOMs intact bilaterally Neck Neck: Yes full ROM, Yes no lymphadenopathy and Yes supple Thyroid: Thyroid normal Chest Chest palpation & inspection: normal inspection of the chest Resp Effort & Inspection: normal respiratory effort and able to speak in complete sentences Auscultation: clear to auscultation bilaterally Cardio Rate: regular rate Rhythm: regular rhythm Heart sounds: S1 normal heart sound present and S2 normal heart sound present GI Inspection: Yes obesity Palpation (GI): Soft to palpation, nontender, no guarding and no masses Auscultation: normal bowel sounds Male General Exam: Yes normal external exam Back/Spine/Pelvis Back: No back tenderness Skin Other: Goes to [place] [facility] once a year for skin check Neuro General: patient oriented x3, gait normal, moves all extremities, Normal light touch and pain sensation, no focal motor deficits and CN's II-XI intact bilaterally Cranial nerves: Yes Equal, round and reactive pupils present and Yes Normal hearing present Cognition (Neuro): normal cognition Gait exam (Neuro): Normal gait present Extrem General: Yes full ROM, Yes no joint enlargement, Yes no clubbing, cyanosis or edema and Yes normal gait Psych Appearance: grossly normal Mental Status: mental status grossly normal Speech and movement: Normal speech and movement present Affect: normal affect Attitude: cooperative Thought process: Normal thought process present Results Reviewed Results Reviewed: Name: Teddy Sanchez Age/Sex: 73/M : 1950 Unit#: [id number] Attend Dr: Jessica Berry MD Re07/15/24 Status: DEP REF Location: [facility] Disch: SPEC : [id number] STEPHANIE: 07/15/24 STATUS: COMP REQ : [id number] RECD: 07/15/[address]: Jessica Berry MD COMP: 07/15/24 ENTERED: 07/15/[address]: ORDERED: Met Prof Fast, AST, ALT, Lipid Panel, Vitamin D 25-OH, Free T4, TSH Test Result Flag Reference Sodium 139 135-145 mmol/L Potassium 4.3 3.3-5.1 mmol/L CL 107 96-108 mmol/L CO2 27 22-29 mmol/L Gap 9 L 12-20 BUN 12 9-16 mg/dL Creat 0.89 0.5-1.4 mg/dL EGFR > 60 NOTE: For -[place] individuals, multiply the result by 1.210. Chronic Kidney Disease: Estimated GFR < 60 mL/min/1.73m2 Severe Kidney Disease: Estimated GFR < 15 mL/min/1.73m2 FBS 91 60-99 mg/dL CA 9.0 8.4-10.2 mg/dL AST (GOT) 20 5-37 U/L ALT (GPT) 16 0-40 U/L Triglyceride 108 <150 mg/dL Desirable Triglyceride: less than 150 mg/dL Borderline High Triglyceride 150-199 mg/dL High Triglyceride: 200-499 mg/dL Very High Triglyceride: greater than or equal to 5OO mg/dL Cholesterol 168 <200 mg/dL Desirable Cholesterol: less than 200 mg/dL Borderline High Cholesterol: 200-239 mg/dL High Cholesterol: greater than 239 mg/dL LDL Calculated 107 H <100 mg/dL Desirable LDL: less than 100 mg/dL Near Optimal/Above Optimal LDL: 110-129 mg/dL Borderline High LDL: 130-159 mg/dL High LDL: 160-189 mg/dL Very High LDL: greater than or equal to 190 mg/dL HDL 40 L >40 mg/dL Desirable HDL: greater than 40 mg/dL Note: This HDL assay may give artificially low results in patients with liver disease. Vit D 25-OH Tot 45.1 >30 ng/mL Health Based Reference Values* < 20 ng/mL Deficient 20-30 ng/mL Insufficient > 30 ng/mL Sufficient *Belinda DOMINGUEZ. N Engl J Med. 2007;[id number]:[id number] Care must be taken in interpreting Vitamin D results from different laboratories and methodologies. Published data demonstrated that results from patients undergoing hemodialysis may show a negative bias when tested with various automated 25-OH vitamin D assays when compared to LC-MS/MS. When testing samples from patients whose predominant form of Vitamin D is Vitamin D2, such as patients receiving Vitamin D2 supplementation, results that are subtherapeutic should be confirmed with another method such as LC-MS/MS. Free T4 0.84 0.71-1.85 ng/dL TSH 3rd Gen. 4.82 H 0.32-4.0 uIU/mL Note: A sustained TSH level above 2.5 uIU/mL may warrant further investigation. TSH 3rd Generation ([facility]) Assessment and Plan Assessment & Plan (1) Hypertrophic obstructive cardiomyopathy: Comment: Goes to [facility] sees Dr. Anne Code(s): I42.1 - Obstructive hypertrophic cardiomyopathy Plan: Currently on verapamil ER 240 mg daily, blood pressure stable controlled on present treatment (2) Acquired hypothyroidism: Code(s): E03.9 - Hypothyroidism, unspecified Plan: TSH slightly elevated, but free T4 within normal limits. Will continue on levothyroxine 100 mcg daily in a.m., will recheck again levels in six-month (3) Dyslipidemia: Code(s): E78.5 - Hyperlipidemia, unspecified Plan: Reviewed recent fasting lipid profile with patient with levels within normal limits . Continue atorvastatin 10 mg daily , in addition to adherence to low-cholesterol diet and regular exercise, at least 30 minutes 3 to 4 times a week. Advised patient to make healthy food choices, eat more fruits, vegetables, whole grains, wild caught fish and low-fat dairy. Limit amount of meat and fried or fatty food products, as well as processed foods and fast foods. Follow-up scheduled with repeat fasting lipid panel in 6 months. (4) Essential hypertension: Code(s): I10 - Essential (primary) hypertension Plan: Blood pressure at goal of less than 130/80. Continue with current medication. Reinforced importance of following a low sodium diet, getting regular exercise, and lowering stress levels. (5) Depression: Code(s): F32.9 - Major depressive disorder, single episode, unspecified Qualifiers: Depression Type: major depressive disorder Major depression recurrence: recurrent Active/Remission status: in full remission Qualified Code(s): F33.42 - Major depressive disorder, recurrent, in full remission Plan: Doing well on venlafaxine ER takes 150 mg at night and 75 mg in the more (6) Not ready to quit smoking: Code(s): Z72.0 - Tobacco use Plan: Patient strongly advised to stop smoking, as smoking damages blood vessels, degenerative of joints and spine, damage to lungs and heart., predisposes to developing certain cancers like lung, breast, bladder, colon. Recommended to try decreasing cigarette use by 1-2 cigarettes a day. Advised to monitor what triggers are for smoking so that this can be discussed on the next office visit. We can discuss different options to quit smoking when ready. Orders: Orders AMB Hemoglobin A1c 12/24/24 E03.9 - Hypothyroidism, unspecified, E78.5 - Hyperlipidemia, unspecified, F33.42 - Major depressive disorder, recurrent, in full remission, I10 - Essential (primary) hypertension, I42.1 - Obstructive hypertrophic cardiomyopathy, Z12.5 - Encounter for screening for malignant neoplasm of prostate Basic Metabolic Panel Fasting 12/24/24 E03.9 - Hypothyroidism, unspecified, E78.5 - Hyperlipidemia, unspecified, F33.42 - Major depressive disorder, recurrent, in full remission, I10 - Essential (primary) hypertension, I42.1 - Obstructive hypertrophic cardiomyopathy, Z12.5 - Encounter for screening for malignant neoplasm of prostate Vitamin D 25-OH Total 12/24/24 E03.9 - Hypothyroidism, unspecified, E78.5 - Hyperlipidemia, unspecified, F33.42 - Major depressive disorder, recurrent, in full remission, I10 - Essential (primary) hypertension, I42.1 - Obstructive hypertrophic cardiomyopathy, Z12.5 - Encounter for screening for malignant neoplasm of prostate Thyroid Stimulating Hormone 12/24/24 E03.9 - Hypothyroidism, unspecified, E78.5 - Hyperlipidemia, unspecified, F33.42 - Major depressive disorder, recurrent, in full remission, I10 - Essential (primary) hypertension, I42.1 - Obstructive hypertrophic cardiomyopathy, Z12.5 - Encounter for screening for malignant neoplasm of prostate Free T4 (Free Thyroxine) 12/24/24 E03.9 - Hypothyroidism, unspecified, E78.5 - Hyperlipidemia, unspecified, F33.42 - Major depressive disorder, recurrent, in full remission, I10 - Essential (primary) hypertension, I42.1 - Obstructive hypertrophic cardiomyopathy, Z12.5 - Encounter for screening for malignant neoplasm of prostate Lipid Panel 12/24/24 E03.9 - Hypothyroidism, unspecified, E78.5 - Hyperlipidemia, unspecified, F33.42 - Major depressive disorder, recurrent, in full remission, I10 - Essential (primary) hypertension, I42.1 - Obstructive hype rtrophic cardiomyopathy, Z12.5 - Encounter for screening for malignant neoplasm of prostate Alanine Aminotransferase 12/24/24 E03.9 - Hypothyroidism, unspecified, E78.5 - Hyperlipidemia, unspecified, F33.42 - Major depressive disorder, recurrent, in full remission, I10 - Essential (primary) hypertension, I42.1 - Obstructive hypertrophic cardiomyopathy, Z12.5 - Encounter for screening for malignant neoplasm of prostate PSA,Total (Free>4and<10) 12/24/24 E03.9 - Hypothyroidism, unspecified, E78.5 - Hyperlipidemia, unspecified, F33.42 - Major depressive disorder, recurrent, in full remission, I10 - Essential (primary) hypertension, I42.1 - Obstructive hypertrophic cardiomyopathy, Z12.5 - Encounter for screening for malignant neoplasm of prostate Coding Level of Care Code Est Pt Level 4 (53753) Complex EM visit Add On [id number] Diagnoses Hypertrophic obstructive cardiomyopathy I42.1 Acquired hypothyroidism E03.9 Dyslipidemia E78.5 Essential hypertension I10 Recurrent major depressive disorder, in full remission F33.42 Depression Type: major depressive disorder Major depression recurrence: recurrent Active/Remission status: in full remission Not ready to quit smoking Z72.0
== END 2024-07-18 08:44 | disposition home or self-care (01) ==
PROVIDERS: PCP Internal Medicine; Visit Provider Internal Medicine
DX: I42.1 Obstructive hypertrophic cardiomyopathy (principal); F33.42 Major depressive disorder, recurrent, in full remission; E03.9 Hypothyroidism, unspecified; E78.5 Hyperlipidemia, unspecified; I10 Essential (primary) hypertension; Z72.0 Tobacco use

== ENCOUNTER → 2024-07-18 08:09 | Outpatient (BNVA) | payer MEDICARE, MEDICAID, SELFPAY | PROVIDERS: PCP Internal Medicine; Visit Provider Internal Medicine | DX: E03.9 Hypothyroidism, unspecified (principal); I42.1 Obstructive hypertrophic cardiomyopathy; E78.5 Hyperlipidemia, unspecified; I10 Essential (primary) hypertension; F33.42 Major depressive disorder, recurrent, in full remission; Z72.0 Tobacco use; Z71.6 Tobacco abuse counseling | CPT/HCPCS: 99212 ==

== ENCOUNTER 2024-08-31 10:04 | Outpatient (AMB) | payer MEDICARE, MEDICAID, SELFPAY ==
[2024-08-31 10:06] VITALS: BP 130/74; PULSE 67; O2SAT 97; BMI 30.3
--- NOTE | 2024-08-31 10:06 | MHC.PC.OV ---
Vital Signs 08/31/24 10:06 Height 5 ft 8 in Weight 199 lb BMI 30.3 BP 130/74 Blood Pressure Location Rt brachial Position Sitting Pulse 67 Pulse Source Pulse Oximeter Pulse Oximetry (%) 97 Intake Visit Reasons: PE Intake Note: pt is here for PE Rn Enterostomal Required: No Allergies amoxicillin Adverse Reaction (Unknown, Verified 08/31/24 10:06) diarrhea Medication List - Last Reconciled 08/31/24 by Josette Ayala NP atorvastatin 10 mg PO DAILY gabapentin 400 mg (1/2 x 800 mg) PO BID 90 days levothyroxine 100 mcg PO DAILY lidocaine 4% 1 appl topical BID venlafaxine ER 75 mg PO DAILY 90 days venlafaxine ER 150 mg PO DAILY verapamil ER 240 mg PO DAILY Tobacco use date assessed: 07/18/24 Fall risk assessment: No Falls in past year Last assessed Fall Risk: 08/31/24 Dental Screening Dental Screen Date: 03/02/24 HPI HPI Comments History of Present Illness Details 73 y/o male patient who presents to the clinic today for PE. Pt of Dr. Berry. No concerns today. Labs and medications reviewed. Colonoscopy: 12/2023 Negative. [facility] Medical History History of adenomatous polyp of colon History of ankle fracture History of fibula fracture Closed right fibular fracture Erectile dysfunction Depression Essential hypertension Dyslipidemia Acquired hypothyroidism Hypertrophic obstructive cardiomyopathy Surgical History Hx of colonoscopy History of surgery History of tonsillectomy Family History Mother CAD (coronary artery disease) CVD (cardiovascular disease) Sister No problems noted. Son Mental health disorder Daughter No problems noted. Social History Housing: Apartment Alcohol intake: current Patient Tobacco Use Status: Current everyday Tobacco user Tobacco use type: Cigarette Cigarette Packs Per Day: 0 Cigarettes Per Day: 10 e-Cigarette/Vaping Use: Never Used Substance Use Type: Marijuana Current occupational status: retired Cognitive needs: No Hearing needs: No Vision needs: Yes Questionnaire PHQ-9 Over the last 2 weeks, how often have you been bothered by any of the following problems? 1. Little interest or pleasure in doing things: not at all 2. Feeling down, depressed, or hopeless: not at all 3. Trouble falling or staying asleep, or sleeping too much: not at all 4. Feeling tired or having little energy: not at all 5. Poor appetite or overeating: not at all 6. Feeling bad about yourself - or that you are a failure or have let yourself or your family down: not at all 7. Trouble concentrating on things, such as reading the newspaper or watching television: not at all 8. Moving or speaking so slowly that other people could have noticed. Or the opposite - being so fidgety or restless that you have been moving around a lot more than usual: not at all 9. Thoughts that you would be better off or of hurting yourself in some way: not at all Total score: 0 Depression Screening Interpretation: Negative Depression Screening Done: Yes 60434 - PHQ-9 Billing: Yes Source: Developed by Drs. Lan Jimenez, Merry Doll, Abdi Serna and colleagues, with an educational andrei from [employer]. Thrive Questionnaire Date Thrive assessed: 08/31/24 I am a: Patient What is your living situation today?: I have a steady place to live Within the past 12 months, did the food you bought not last and you didn't have the money to get more?: Never true Within the past 12 months, did you worry whether your food would run out before you got money to buy more?: Never true Do you have trouble paying for medicines?: No Do you have trouble getting transportation to medical appointments?: No Do you have trouble paying your heating and electricity bill?: No Do you have trouble taking care of your child, family member or friend?: No Do you have trouble with day-to-day activities such as bathing, preparing meals, shopping, managing finances, etc.?: No Are you currently unemployed and looking for a job?: No Are you interested in more education?: No Please select the resources that you would like help with: None Currently or been in a relationship where the following occur: No concerns reported THRIVE Score: 0 AUDIT C Alcohol Use Questionnaire (AUDIT-C) 1. How often do you have a drink containing alcohol?: Never 3. How often do you have six or more drinks on one occasion?: Never Total Score: 0 Score Reviewed/Action Taken: Yes GWENDOLYN-7 AMB Questionnaire GWENDOLYN-7 Date GWENDOLYN - 7 assessed: 08/31/24 Feeling nervous, anxious, or on edge: 0 = Not at all Not being able to stop or control worryin = Not at all Worrying too much about different things: 0 = Not at all Trouble relaxin = Not at all Being so restless that it is hard to sit still: 0 = Not at all Becoming easily annoyed or irritable: 0 = Not at all Feeling afraid as if something awful might happen: 0 = Not at all Total GWENDOLYN-7 score (0-4 normal; 5-9 mild; 10-14 moderate; 15-21 severe): 0 Source: Developed by Drs. Lan Jimenez, Merry Doll, Abdi Serna and colleagues, with an educational andrei from [employer]. GWENDOLYN-7 Assessment Billing GWENDOLYN-7 Assessment Tool: GWENDOLYN-7 Assessment 27488 Review of Systems Const All systems reviewed & are unremarkable except as noted in HPI and below Physical exam (Primary Care) Vital Signs: Last Vital Signs Pulse 67 08/31/24 10:06 BP 130/74 08/31/24 10:06 Pulse Ox 97 08/31/24 10:06 BMI result Body Mass Index 30.3 Tobacco/Smoking Status: Tobacco use Status Tobacco use date assessed 07/18/24 08/31/24 10:07 Patient Tobacco Use Status Current everyday Tobacco 08/31/24 10:07 Tobacco use type Cigarette 08/31/24 10:07 e-Cigarette/Vaping Use Never Used 08/31/24 10:07 PHQ-9: PHQ-9 Score PHQ-9: Total score 0 08/31/24 10:33 Depression Screening Interpretation: Negative Thrive Assessment: Date of Thrive Assessment Date Thrive assessed 08/31/24 08/31/24 10:07 Currently or been in a relationship where the following occur: No concerns reported Const General: cooperative and no acute distress Nutritional Appearance: obese Orientation/consciousness: patient oriented x3 HENMT Head: Yes normocephalic Ears: external ears normal and TM's normal bilaterally General nose exam: Normal external nose present Face and sinus: Yes sinuses nontender Mouth: moist mucous membranes Throat: Yes posterior oropharynx normal and Yes uvula midline Eyes Pupils: Equal, round and reactive pupils present EOM: EOMs intact bilaterally Direct Ophthalmoscopy: normal light reflex Neck Neck: Yes full ROM and Yes no lymphadenopathy Thyroid: Thyroid normal Resp Effort & Inspection: normal respiratory effort and able to speak in complete sentences Auscultation: clear to auscultation bilaterally, no crackles, no rales, no rhonchi and no wheezes Cardio Heart sounds: S1 normal heart sound present and S2 normal heart sound present GI Inspection: Yes Abdominal panniculus present and Yes obesity Palpation (GI): Soft to palpation, not firm, nontender, no guarding, not rigid and No hepatosplenomegaly present Percussion: Yes normal to percussion Auscultation: normal bowel sounds Rectal Exam - Male: Yes deferred General: Yes no CVA tenderness and Yes deferred Back/Spine/Pelvis Back: no CVA tenderness Skin General skin exam: no rashes or lesions noted Neuro General: patient oriented x3, gait normal and moves all extremities Cranial nerves: Yes Equal, round and reactive pupils present Motor exam (neuro): 5/5 motor strength present throughout Extrem General: Yes full ROM and Yes capillary refill normal Psych Speech and movement: Normal speech and movement present Coding Level of Care Code Est Pt Prev Care >65y(25984) Diagnoses Acquired hypothyroidism E03.9 Essential hypertension I10 Recurrent major depressive disorder, in full remission F33.42 Active/Remission status: in full remission Depression Type: major depressive disorder Major depression recurrence: recurrent Encounter for routine adult health examination without abnormal findings Z00.00 Hypertrophic obstructive cardiomyopathy I42.1 Additional Codes GWENDOLYN-7 Assessment Billing - GWENDOLYN-7 Assessment Tool: GWENDOLYN-7 Assessment 38724 ([id number]) PHQ-9 - 26418 - PHQ-9 Billing: Yes ([id number]) Time Spent (min) 30 Assessment & Plan Assessment & Plan (1) Acquired hypothyroidism: Code(s): E03.9 - Hypothyroidism, unspecified Category: Medical Plan: Continue on current regiment. (2) Essential hypertension: Code(s): I10 - Essential (primary) hypertension Category: Medical Plan: Continue on current regiment (3) Depression: Code(s): F32.9 - Major depressive disorder, single episode, unspecified Category: Medical Qualifiers: Active/Remission status: in full remission Depression Type: major depressive disorder Major depression recurrence: recurrent Qualified Code(s): F33.42 - Major depressive disorder, recurrent, in full remission Plan: Continue on current regiment (4) Encounter for routine adult health examination without abnormal findings: Code(s): Z00.00 - Encounter for general adult medical examination without abnormal findings Plan: Exam WNL (5) Hypertrophic obstructive cardiomyopathy: Comment: Goes to [facility] sees Dr. Anne Code(s): I42.1 - Obstructive hypertrophic cardiomyopathy Category: Medical Plan: Managed by Cardiology
== END 2024-08-31 11:05 | disposition home or self-care (01) ==
LOC: HO.HMCC 10:05
PROVIDERS: PCP Internal Medicine; Visit Provider Nurse Practitioner Family
DX: Z00.00 Encounter for general adult medical examination without abnormal findings (principal); F33.42 Major depressive disorder, recurrent, in full remission; I42.1 Obstructive hypertrophic cardiomyopathy; E03.9 Hypothyroidism, unspecified; I10 Essential (primary) hypertension

== ENCOUNTER → 2024-08-31 10:04 | Outpatient (BNVA) | payer MEDICARE, MEDICAID, SELFPAY | PROVIDERS: PCP Internal Medicine; Visit Provider Nurse Practitioner Family | DX: Z00.00 Encounter for general adult medical examination without abnormal findings (principal); E03.9 Hypothyroidism, unspecified; I10 Essential (primary) hypertension; F33.42 Major depressive disorder, recurrent, in full remission; I42.1 Obstructive hypertrophic cardiomyopathy | CPT/HCPCS: 96127; 99397 ==

== ENCOUNTER 2024-09-13 10:36 | Outpatient (AMB) | payer MEDICARE, MEDICAID, SELFPAY ==
--- NOTE | 2024-09-13 11:11 | MHC.OFFWIV ---
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 Symptoms began last Thursday, following contact with a sick significant other. The cough is characterized by hacking and productive of yellowish phlegm. The patient also reports a feeling of not being able to catch his breath and occasional chest pressure. No history of asthma or COPD is noted; however, the patient is a smoker. Past medical history includes a hospitalization for pneumonia severe enough to require intubation. 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 He experienced feverish chills, feeling cold even when the apartment temperature was elevated. He reports hearing himself wheeze as well as bilateral shoulder pain with no injury. Home management has included the use of OTC medications, Mucinex DM, based on previous recommendations by Dr. Berry. No past antibiotics use for the current illness, and no recent COVID testing. The patient?s last experience with viral pneumonia led to chills and difficulty regulating body temperature, reminiscent of the current episode. [facility] Medical History History of adenomatous polyp of colon History of ankle fracture History of fibula fracture Closed right fibular fracture Erectile dysfunction Depression Essential hypertension Dyslipidemia Acquired hypothyroidism Hypertrophic obstructive cardiomyopathy Surgical History Hx of colonoscopy History of surgery History of tonsillectomy Family History Mother CAD (coronary artery disease) CVD (cardiovascular disease) Sister No problems noted. Son Mental health disorder Daughter No problems noted. Social History Housing: Apartment Alcohol intake: current Patient Tobacco Use Status: Current everyday Tobacco user Tobacco use type: Cigarette Cigarette Packs Per Day: 0 Cigarettes Per Day: 10 e-Cigarette/Vaping Use: Never Used Substance Use Type: Marijuana Current occupational status: retired Cognitive needs: No Hearing needs: No Vision needs: Yes Physical Exam Vital Signs: Last Vital Signs Temp 98.7 F 09/13/24 11:13 Pulse 71 09/13/24 11:13 BP 126/70 09/13/24 11:13 Pulse Ox 95 09/13/24 11:13 Oxygen Delivery Method Room Air 09/13/24 11:13 General: Cooperative, healthy appearing, comfortable and no acute distress Orientation/consciousness: Patient oriented x3 Limitations: No limitations Head: Normal to inspection Ears: Hearing grossly normal bilaterally, external ears normal and TM's normal bilaterally, left ear red but not infected Nose: Normal external nose present, Normal nares present and No nasal discharge present Face and sinus: Normal facial exam and Yes sinuses nontender Mouth: Normal oral and palatal mucosa present and moist mucous membranes Throat: Yes tonsils normal, Yes uvula midline. Posterior oropharynx erythema, very red Eyes: Appearance normal, both eyes and all related structures Neck: Normal visual inspection Respirtory: Clear to auscultation bilaterally. Normal respiratory effort, able to speak in complete sentences, Actively coughing, no respiratory distress, not tachypneic, no tripod positioning and no use of accessory muscles Cardiovascular: Regular rate and rhythm. Normal S1 and S2 Skin: No rashes or lesions noted Neuro: Patient oriented x3 Extremities: Normal to inspection and Yes no clubbing, cyanosis or edema Assessment & Plan Assessment & Plan (1) Lower respiratory infection (e.g., bronchitis, pneumonia, pneumonitis, pulmonitis): Code(s): J22 - Unspecified acute lower respiratory infection Plan: To address the suspected viral respiratory infection, I recommend chest X-rays to rule out pneumonia. I will administer tests for influenza, COVID-19, and RSV. If pneumonia is confirmed, I will prescribe antibiotics, likely in the form of a Z-pack and Augmentin, and recommend an albuterol inhaler to manage shortness of breath and aid in respiratory relief. I discussed administering an inhaler, demonstrating its use, and instructing usage every four to six hours as needed to alleviate symptoms. Given the patient's smoking status and past pneumonia complications with intubation, prompt attention to symptom exacerbation, including escalation to the ER if breathing difficulty increases, was advised. In the interim, the patient should monitor symptoms and rest adequately. CXR suspicious for pneumonia but will wait for formal radiologist read before sending any antibiotics to pharmacy. Orders: Orders XR chest 2V Today R05.9 - Cough, unspecified SARS-CoV2/FLU/RSV Today J06.9 - Acute upper respiratory infection, unspecified Medications: New albuterol sulfate 90 mcg/actuation 2 puffs inhalation Q6H PRN 8.5 grams 0RF shortness of breath or wheezing or cough Coding Level of Care Code Est Pt Level 4 (90847) Diagnoses Lower respiratory infection (e.g., bronchitis, pneumonia, pneumonitis, pulmonitis) J22
[2024-09-13 11:13] VITALS: BP 126/70; PULSE 71; TEMP 37.1; O2SAT 95
== END 2024-09-13 12:31 | disposition home or self-care (01) ==
PROVIDERS: PCP Internal Medicine; Visit Provider Physician Assistant
DX: J22 Unspecified acute lower respiratory infection (principal)

== ENCOUNTER 2024-09-13 10:36 | Outpatient (REF) | payer MEDICARE, MEDICAID, SELFPAY ==
[2024-09-13 14:21] LABS: Influenza A PCR NEGATIVE (Negative); Influenza B PCR NEGATIVE (Negative); Resp Syncy Virus RNA Qual PCR NEGATIVE (Negative); SARS COV2 PCR INHOUSE NEGATIVE (Negative)
== END 2024-09-13 10:37 | disposition home or self-care (01) ==
LOC: HO.LAB 10:36
PROVIDERS: PCP Internal Medicine; Visit Provider Physician Assistant
DX: J06.9 Acute upper respiratory infection, unspecified (principal)
CPT/HCPCS: 0241U; 99212

== ENCOUNTER 2024-09-13 12:09 | Outpatient (REF) | payer MEDICARE, MEDICAID, SELFPAY ==
--- NOTE | ~2024-09-13 | XR_ITS ---
EXAMINATION: XR CHEST CLINICAL INFORMATION: R05.9 - Cough, unspecified COMPARISON: None available. TECHNIQUE: 2 views of the chest were obtained. FINDINGS: Poststernotomy changes are present. In the periphery of the right mid to lower lung zone, there is a round 3 cm masslike opacity the left lung is clear. There are no pleural effusions. The cardiomediastinal silhouette is not enlarged. The aorta is uncoiled. XR/XR chest 2V IMPRESSION: 3 cm masslike opacity in the right lower lung zone, for which thoracic CT is recommended. Electronically signed by: Jorge Alberto Escobar MD 09/13/2024 03:21 PM [facility]
== END 2024-09-13 12:10 | disposition home or self-care (01) ==
LOC: HO.HMGCX 12:09
PROVIDERS: PCP Internal Medicine; Visit Provider Physician Assistant
DX: R05.9 Cough, unspecified (principal)
CPT/HCPCS: 71046

== ENCOUNTER 2024-09-27 14:03 | Outpatient (REF) | payer MEDICARE, MEDICAID, SELFPAY ==
--- NOTE | ~2024-09-27 | CT_ITS ---
EXAMINATION: CT CHEST WITH CONTRAST CLINICAL INFORMATION: Right lung mass evaluation COMPARISON: Chest radiograph dated 09/13/2024 TECHNIQUE: Multidetector volumetric CT imaging of the chest was obtained after the administration of 50 mL of Omnipaque 350 intravenous contrast without immediate adverse reactions. Axial MIP volume rendering provided. Sagittal and coronal reformatted images were obtained. This CT examination was performed using dose optimization techniques as appropriate, variously including the following: *Automated exposure control *Adjustment of mA and/or kV according to patient size (this includes techniques or standardized protocols for targeted exams where dose is matched to indication/reason for exam; i.e. extremities or head) *Use of iterative reconstruction technique DLP: 150 mGy-cm FINDINGS: DIET CLERK: Unremarkable LUNGS: There is a 17 x 24 mm stellate mass in the subpleural right middle lobe, extending to the borders of the major and minor fissure. This could be inflammatory, or neoplastic. Small satellite areas of nodularity are seen in the more posterior right middle lobe and there appears to be a second area of stellate nodularity in the adjacent anterior right lower lobe subpleural at 12 mm. The lungs do appear to be hyperaerated. Minimal areas of linear atelectasis or scar in lingula are observed. MEDIASTINUM: Heart size is borderline with left ventricular prominence but no pericardial effusion. There are mediastinal nodes present, the largest, retrocaval measuring up to 13 mm. Moderate to advanced coronary artery calcifications are seen. There is thrombotic rind along the posterior margin of the aortic arch. Transverse diameter of the ascending aorta at the level of the main pulmonary artery is 38 mm. PLEURA: There is no pleural effusion. No pleural mass or thickening. AXILLA: No lymphadenopathy. UPPER ABDOMEN: Moderate hepatic steatosis. Adrenals normal. OSSEOUS STRUCTURES: Poststernotomy noted. Thoracic spine kyphotic with spondylitic change. CT/CT chest w IV con IMPRESSION: Suspicious mass in the peripheral right middle lobe. Please see differential diagnosis. A PET/CT may be helpful in this case. Fleischner guidelines were followed. Electronically signed by: Doug Eagle MD 09/28/2024 02:52 PM [facility]
[2024-09-27] MEDS: iohexoL 350 MG/ML 100 ML INFUS..BTL IV (15:25)
[2024-09-28 07:40] LABS: Creatinine POC 0.8 mg/dL (0.5-1.4); GFR POC > 60
== END 2024-09-27 14:04 | disposition home or self-care (01) ==
LOC: HO.CT 14:03
PROVIDERS: PCP Internal Medicine; Visit Provider Internal Medicine
DX: R91.8 Other nonspecific abnormal finding of lung field (principal)
CPT/HCPCS: 71260; 82565; Q9967

== ENCOUNTER 2024-10-05 08:05 | Outpatient (AMB) | payer MEDICARE, MEDICAID, SELFPAY ==
--- NOTE | 2024-10-05 08:06 | MHC.OFFVIS ---
Vital Signs 10/05/24 08:14 Height 5 ft 8 in Weight 192 lb BMI 29.2 BP 185/72 H Blood Pressure Location Rt brachial Position Sitting Pulse 74 Intake Visit Reasons: mass in the subpleural right middle lobe Intake Note: Patient referred by pcp Dr. Berry for mass in the subpleural rt middle lobe. Patient c/o: denies difficulty breathing, no SOB. Chest CT: 09-27-2024. Residential Property Consultant Required: No Accompanied by: Aura significant other Allergies amoxicillin Adverse Reaction (Unknown, Verified 10/05/24 08:12) diarrhea Medication List - Last Reconciled 10/05/24 by Edward Daley MD albuterol sulfate 90 mcg/actuation 2 puffs inhalation Q6H PRN atorvastatin 10 mg PO DAILY gabapentin 400 mg (1/2 x 800 mg) PO BID 90 days levothyroxine 100 mcg PO DAILY lidocaine 4% 1 appl topical BID venlafaxine ER 75 mg PO DAILY 90 days venlafaxine ER 150 mg PO DAILY verapamil ER 240 mg PO DAILY HPI Comments Details: Patient presents with his for evaluation of the incidentally found right middle lobe lung mass. Several weeks ago, patient had was felt to be an ammonia and was seen at outpatient walk-in clinic. He had chest x-ray was demonstrated of the right lung process. This was followed with a CT scan which demonstrates a suspicious right middle lobe lung mass. Patient denies any new or chronic cough, hemoptysis, chest pain, or wheezing. He has a very significant smoking history of 1/2-1 pack per day for over 58 years. He has significantly cut down to 3-4 cigarettes per day. His weight, energy, and appetite are stable. Chart was reviewed and patient evaluated. Patient had at the [facility] some sort of aortic surgery roughly 11 years ago which he is unclear of the precise procedure but sounds something like he had coarctation of the aorta. He has done well since then. [facility] Medical History Mass of right lung History of adenomatous polyp of colon History of ankle fracture History of fibula fracture Closed right fibular fracture Erectile dysfunction Depression Essential hypertension Dyslipidemia Acquired hypothyroidism Hypertrophic obstructive cardiomyopathy Surgical History Hx of colonoscopy History of surgery History of tonsillectomy Family History Mother CAD (coronary artery disease) CVD (cardiovascular disease) Sister No problems noted. Son Mental health disorder Daughter No problems noted. Social History Housing: Apartment Alcohol intake: current Patient Tobacco Use Status: Current everyday Tobacco user Tobacco use type: Cigarette Cigarette Packs Per Day: 0 Cigarettes Per Day: 10 e-Cigarette/Vaping Use: Never Used Substance Use Type: Marijuana Current occupational status: retired Cognitive needs: No Hearing needs: No Vision needs: Yes Physical Exam Vital Signs: Last Vital Signs Pulse 74 10/05/24 08:14 BP 185/72 H 10/05/24 08:14 BMI result Body Mass Index 29.2 Chest Other: Chest breath sounds bilaterally, consistent with COPD. Hs 1 in 2. No evidence of cervical, periclavicular, or axillary adenopathy bilaterally. GI Other: Abdomen corpulent, soft, benign Assessment & Plan Assessment & Plan (1) Mass of middle lobe of right lung: Code(s): R91.8 - Other nonspecific abnormal finding of lung field Category: Surgical Plan: Based on the patient's significant smoking history as well as the suspicious lesion on CT scan, my current recommendation would be to arrange for CT-guided lung biopsy, PET scan for staging, and baseline pulmonary function test. Another option would be surveillance CT scan in 6 months but I do not recommend this based on the above mentioned history and findings. Patient was in agreement. Arrangements will be made for the above-mentioned interventions and studies and he will see me after this. All questions answered. Orders: Orders CT biopsy lung RT Today R91.8 - Other nonspecific abnormal finding of lung field PET CT fusion skull to thigh Today R91.8 - Other nonspecific abnormal finding of lung field Coding Level of Care Code New Pt Level 4 (86504) Diagnoses Mass of middle lobe of right lung R91.8
[2024-10-05 08:14] VITALS: BP 185/72; PULSE 74; BMI 29.2
== END 2024-10-05 08:37 | disposition home or self-care (01) ==
PROVIDERS: PCP Internal Medicine; Visit Provider Surgery
DX: R91.8 Other nonspecific abnormal finding of lung field (principal)
CPT/HCPCS: 99204

== ENCOUNTER → 2024-10-05 08:05 | Outpatient (BNVA) | payer MEDICARE, MEDICAID, SELFPAY | PROVIDERS: PCP Internal Medicine; Visit Provider Surgery | DX: R91.8 Other nonspecific abnormal finding of lung field (principal) | CPT/HCPCS: 99202 ==

== ENCOUNTER 2024-10-25 08:51 | Outpatient (AMB) | payer MEDICARE, MEDICAID, SELFPAY ==
--- NOTE | 2024-10-25 08:58 | MHC.OFFVIS ---
Vital Signs 10/25/24 09:03 Height 5 ft 8 in Weight 192 lb BMI 29.2 BP 141/67 H Blood Pressure Location Rt brachial Position Sitting Pulse 65 Intake Visit Reasons: Pet Scan results Intake Note: Patient here to discuss PET scan on 10-11-2024 results. Patient c/o: no concerns. CT guided Rt lung bx: waiting to be schedule. Clinical Professor Required: No Accompanied by: David significant other Allergies amoxicillin Adverse Reaction (Unknown, Verified 10/25/24 08:58) diarrhea HPI Comments Details: Patient presents for follow-up status post PET scan he was also supposed to have a lung biopsy of the right mid lung lesion but this for the whenever reason has not been scheduled yet. Nothing new since last visit. Patient presents was . PET scans were results were reviewed which demonstrate a new finding of an right oropharyngeal hot spot suspicious for neoplastic process. The right mid lobe lung lesion did not light up but according to radiologist, there is at least a 10% chance that a malignant process can demonstrate negative PET. PFSH Medical History Mass of right lung History of adenomatous polyp of colon History of ankle fracture History of fibula fracture Closed right fibular fracture Erectile dysfunction Depression Essential hypertension Dyslipidemia Acquired hypothyroidism Hypertrophic obstructive cardiomyopathy Surgical History Hx of colonoscopy History of surgery History of tonsillectomy Family History Mother CAD (coronary artery disease) CVD (cardiovascular disease) Sister No problems noted. Son Mental health disorder Daughter No problems noted. Social History Housing: Apartment Alcohol intake: current Patient Tobacco Use Status: Current everyday Tobacco user Tobacco use type: Cigarette Cigarette Packs Per Day: 0 Cigarettes Per Day: 10 e-Cigarette/Vaping Use: Never Used Substance Use Type: Marijuana Current occupational status: retired Cognitive needs: No Hearing needs: No Vision needs: Yes Physical Exam Vital Signs: Last Vital Signs Pulse 65 10/25/24 09:03 BP 141/67 H 10/25/24 09:03 BMI result Body Mass Index 29.2 Neck Other: Mild shotty submandibular adenopathy but no gross obvious pathology. Chest Other: Chest breath sounds bilaterally. GI Other: Abdomen corpulent, soft, benign Assessment & Plan Assessment & Plan (1) Mass of middle lobe of right lung: Code(s): R91.8 - Other nonspecific abnormal finding of lung field Category: Surgical (2) Oropharyngeal mass: Code(s): J39.2 - Other diseases of pharynx Category: Surgical Plan Current plan is 1. For the patient to have his lung biopsy scheduled. 2. We will also arrange for ENT evaluation regarding his PET scanning finding of a oropharyngeal hot spot. Patient will see me after the above. All questions answered. Orders: Referrals Ear/Nose/Throat Referral J39.1 - Other abscess of pharynx Coding Level of Care Code Est Pt Level 4 (56582) Diagnoses Mass of middle lobe of right lung R91.8 Oropharyngeal mass J39.2
[2024-10-25 09:03] VITALS: BP 141/67; PULSE 65; BMI 29.2
== END 2024-10-25 09:32 | disposition home or self-care (01) ==
PROVIDERS: PCP Internal Medicine; Visit Provider Surgery
DX: R91.8 Other nonspecific abnormal finding of lung field (principal); J39.2 Other diseases of pharynx
CPT/HCPCS: 99214

== ENCOUNTER → 2024-10-25 08:51 | Outpatient (BNVA) | payer MEDICARE, MEDICAID, SELFPAY | PROVIDERS: PCP Internal Medicine; Visit Provider Surgery | DX: R91.8 Other nonspecific abnormal finding of lung field (principal); J39.2 Other diseases of pharynx | CPT/HCPCS: 99212 ==

== ENCOUNTER 2024-11-08 09:29 | Outpatient (AMB) | payer MEDICARE, MEDICAID, SELFPAY ==
--- NOTE | 2024-11-08 09:41 | MHC.OFFVIS ---
Intake Visit Reasons: Questions recent PET scan Intake Note: Patient scheduled today's visit to discuss recent PET Scan on 10-11-2024. Has questions about lesion noted on Rt neck. Patient c/o: reports ENT appointment today at 1pm [facility]. Activity Coordinator Required: No Accompanied by: Spouse Allergies amoxicillin Adverse Reaction (Unknown, Verified 11/08/24 09:41) diarrhea HPI Comments Details: Patient presents with his . He would like to once again review and discuss his radiographic studies and findings. Patient had a CT scan which I actually reviewed with him along with a PET scan in my office on the computer. The right upper lobe lung lesion was demonstrated. The PET scan hot lesion in his neck was also demonstrated. Patient was tentatively scheduled for ENT visit/evaluation later today. He is also tentatively scheduled for later this month for IR biopsy of his right upper lobe lung lesion. [facility] Medical History Mass of right lung History of adenomatous polyp of colon History of ankle fracture History of fibula fracture Closed right fibular fracture Erectile dysfunction Depression Essential hypertension Dyslipidemia Acquired hypothyroidism Hypertrophic obstructive cardiomyopathy Surgical History Hx of colonoscopy History of surgery History of tonsillectomy Family History Mother CAD (coronary artery disease) CVD (cardiovascular disease) Sister No problems noted. Son Mental health disorder Daughter No problems noted. Social History Housing: Apartment Alcohol intake: current Patient Tobacco Use Status: Current everyday Tobacco user Tobacco use type: Cigarette Cigarette Packs Per Day: 0 Cigarettes Per Day: 10 e-Cigarette/Vaping Use: Never Used Substance Use Type: Marijuana Current occupational status: retired Cognitive needs: No Hearing needs: No Vision needs: Yes Physical Exam Chest Other: Status quo Assessment & Plan Assessment & Plan (1) Oropharyngeal mass: Code(s): J39.2 - Other diseases of pharynx Category: Surgical (2) Mass of middle lobe of right lung: Code(s): R91.8 - Other nonspecific abnormal finding of lung field Category: Surgical Plan Current plan is to have the patient evaluated for his PET scan positive head and neck area as well as for IR biopsy of right lung lesion. I discussed with him that the lung lesion can be observed with a repeat scan in 6 months or the biopsy. He would like the IR biopsy. He will review of the risks benefits and alternatives with intervention Radiology when he visits them later this month. He is also scheduled for baseline pulmonary function test. In the meantime, patient will see me after the above have been completed. All questions answered. Coding Level of Care Code Est Pt Level 4 (85155) Diagnoses Oropharyngeal mass J39.2 Mass of middle lobe of right lung R91.8
== END 2024-11-08 09:56 | disposition home or self-care (01) ==
PROVIDERS: PCP Internal Medicine; Visit Provider Surgery
DX: J39.2 Other diseases of pharynx (principal); R91.8 Other nonspecific abnormal finding of lung field
CPT/HCPCS: 99214

== ENCOUNTER → 2024-11-08 09:29 | Outpatient (BNVA) | payer MEDICARE, MEDICAID, SELFPAY | PROVIDERS: PCP Internal Medicine; Visit Provider Surgery | DX: J39.2 Other diseases of pharynx (principal); R91.8 Other nonspecific abnormal finding of lung field | CPT/HCPCS: 99212 ==

== ENCOUNTER 2024-11-15 10:30 | Outpatient (REF) | payer MEDICARE, MEDICAID, SELFPAY ==
--- NOTE | 2024-11-15 10:33 | PFT_ITS ---
Indication: Pulmonary nodule Spirometry [FEV1 to FVC 75%; FEV1 2.99 L; FVC 4.01 L. No significant response to bronchodilators noted.] Lung Volumes [Tunneling capacity 87% predicted] Diffusion Capacity [DLCO 91% predicted] Comparisons [none] Interpretation [No obstructive nor restrictive ventilatory defects identified. No significant response to bronchodilators noted. Normal total lung capacity and normal diffusing capacity. Clinical correlation warranted.] MTDD
--- OUTSIDE RECORDS SUMMARY | 2024-11-15 11:50 | XMS_ITS | Clinical Summary ---
Author Organization [facility] Address [address] [place] [address] Phone Care Team Providers Care Upholstery Department Supervisor Name Role Phone Jessica Berry MD Primary Care Provider Allergies No known active allergies Medications Medication Sig Dispensed Refills Start Date End Date Status verapamil SR (CALAN-SR) 240 mg CR tablet Take 1 tablet (240 mg total) by mouth 1 (one) time each day. 02/04/2022 Active levothyroxine (SYNTHROID, LEVOTHROID) 100 mcg tablet Take 1 tablet (100 mcg total) by mouth 1 (one) time each day before breakfast. Active gabapentin (NEURONTIN) 800 mg tablet Take 0.5 tablets (400 mg total) by mouth 2 (two) times a day. Active atorvastatin (LIPITOR) 10 mg tablet Take 1 tablet (10 mg total) by mouth at bedtime. Active venlafaxine (EFFEXOR) 75 mg tablet Take 1 tablet (75 mg total) by mouth 1 (one) time each day. Active venlafaxine XR (EFFEXOR-XR) 150 mg 24 hr capsule Take 1 capsule (150 mg total) by mouth at bedtime. Do not crush or chew. Active venlafaxine (EFFEXOR) 37.5 mg tablet Take 2 tablets (75 mg total) by mouth 1 (one) time each day. 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 Medical History Medical History Date Comments Dysphagia occasional Hypothyroidism Depression Anxiety Neuromuscular disorder (CMS/HCC) peripheral neuropathy Joint pain r knee Social History Tobacco Use Types Packs/Day Years Used Date Smoking Tobacco: Every Day Cigarettes Smokeless Tobacco: Never Alcohol Use Standard Drinks/Week Comments Yes 0 (1 standard drink = 0.6 oz pur e alcohol) Sex and Gender Information Value Date Recorded Sex Assigned at Not on file Gender Identity Not on file Sexual Orientation Not on file Obstetrics History Last Filed Vital Signs Vital Sign Reading Time Taken Comments Blood Pressure 140/80 09/02/2023 9:27 AM EST Pulse 64 09/02/2023 9:27 AM EST Temperature - - Respiratory Rate - - Oxygen Saturation - - Inhaled Oxygen Concentration - - Weight 86.2 kg (190 lb) 09/02/2023 9:27 AM EST Height 172.7 cm (5' 8 ) 09/02/2023 9:27 AM EST Body Mass Index 28.89 09/02/2023 9:27 AM EST Plan of Treatment Upcoming Encounters Date Type Department Care Team (Latest Contact Info) Description 11/21/2024 11:45 AM EST Hospital Encounter [facility] OR [address] [place] [phone] Sharee Carroll MD [address] [address] 11/21/2024 11:45 AM EST - 11/21/2024 1:15 PM EST Surgery [facility] OR [address] [place] [phone] Sharee Carroll MD [address] [address] DIRECT LARYNGOSCOPY W/ BIOPSY [59600 (CPT??)] Scheduled Procedures Name Priority Associated Diagnoses Date/Ti me LARYNGOSCOPY DIRECT Localized swelling, mass and lump, head 11/21/2024 11:45 AM EST Health Maintenance Due Date Last Done Comments Pneumococcal Vaccine: 65+ Ye ars (1 of 2 - PCV) 1957 DTaP,Tdap,and Td Vaccines (1 - Tdap) 1970 Zoster Vaccines (1 of 2) 2001 Abdominal Aortic Aneurysm (A AA) Screen 10/05/2022 Cholesterol Screening (Lipid Panel) 10/05/2022 Colorectal Cancer Screening: Colonoscopy 10/05/2022 Depression Screening 10/05/2022 Falls Risk Assessment 10/05/2022 Hepatitis C Screening 10/05/2022 Hypertension/CHF/CAD Annual BMP Blood Test 10/05/2022 Medicare Annual Wellness Visit 10/05/2022 Social Influencers of Health Screening 10/05/2022 COVID-19 Vaccine (1 - 2023-2 5 season) 2024 Influenza Vaccine (#1) 2024 RSV Immunization Patients 60 + Years Old (1 - 1-dose 75+ series) 2026 HIB Vaccines Aged Out No longer eligi ble based on patient's age to complete this topic HPV Vaccines Aged Out No longer eligi ble based on patient's age to complete this topic Hepatitis A Vaccines Aged Out No long er eligible based on patient's age to complete this topic Hepatitis B Vaccines Aged Out No long er eligible based on patient's age to complete this topic IPV Vaccines Aged Out No longer eligi ble based on patient's age to complete this topic MMR Vaccines Aged Out No longer eligi ble based on patient's age to complete this topic Meningococcal ACWY Vaccine Aged Out N o longer eligible based on patient's age to complete this topic RSV Immunization Patients Un shaheed 20 months Aged Out No longer eligible b ased on patient's age to complete this topic Varicella Vaccines Aged Out No longer eligible based on patient's age to complete this topic Advance Directives Documents on File Type Date Recorded Patient Automatic Log Cut Off Sawyer Expl anation Health Care Decision (hx) 11/25/2012 AD ZHANG DIRECTIVE Health Care Decision (hx) 11/25/2012 AD ZHANG DIRECTIVE Health Care Decision (hx) 11/25/2012 AD ZHANG DIRECTIVE Health Care Decision (hx) 11/25/2012 AD ZHANG DIRECTIVE Health Care Decision (hx) 11/25/2012 AD ZHANG DIRECTIVE Care Teams Upholstery Department Supervisor Relationship Specialty Start Date End Date Jessica Berry MD [address] [place] [address] PCP - General Internal Medicine 08/03/12
--- OUTSIDE RECORDS SUMMARY | 2024-11-15 11:50 | XMS_ITS | Data Portability ---
Author Organization [place] - [facility], [facility] Address [address] [place] [phone] Care Team Providers Care Electric Blasting Cap Assembler Name Role Phone ALISSA LUTHER Referring Provider Assessment Encounter Date Assessment Date Assessment LastModified by Organization Details LastModified Time 11/08/2024 11/08/2024 1. Right base of tongue PET avidity 2. Smoking history 3. Lung lesion 73yo gentelman with a ~58 pack year smoking history who presents today for evaluation of PET avidity found incidentally on imaging. He has a known lung lesion, for which he is undergoing a biopsy in November. He denies any associated head and neck symptoms. On exam, he has palpable fullness at the right base of tongue with fullness on fiberoptic laryngoscopy. He also has hyperintensity on his PET/CT. Given these findings as well as his smoking history, I recommend direct laryngoscopy with biopsy of the area with the next available surgeon. Risks and benefits were discussed the patient and he would like to proceed. Not available 11/08/2024 15:12:43 Plan of Treatment Reminders Order Date Submit Date Provider Last Modified By Organization Details Last Modified Time Details Appointments SURGERY 90 2024 11:45A M HUGO SUGGS MD Not available Not available Not available Post Op 2024 09:00A Juve ARMSTRONG PA-C Not available Not available Not available Lab None recorded . Referral None recorded . Procedures None recorded . Surgeries laryngos copy, direct, with biopsy (SURG) 2024 025 Not available 11/08/2024 13:35:37 Imaging None recorded . Medication Orders None recorded . Patient TargetsNo targets recorded. Patient InstructionsNo instructions recorded. Reason for Referral None Reported. Problems Name Problem SNOMED Code Status Onset Date Resolution Date Notes Provider Name and Address Organization Details Recorded Time Mass of head and/or neck 774265239 [facility] 2024 PRIYANKA DONNELLY MD [address] [place] [address], E [facility][note 3], [place], [phone], [facility] - [facility] 13:34:45 Mass of tongue 284877677 [facility] 2024 PRIYANKA DONNELLY MD [address] [place] [address],[place] [address], [place], [phone], [facility] - [facility] 13:34:55 Continuous dependence on cigarette smoking 0900589577163 08 [facility] 2024 PRIYANKA DONNELLY MD [address] [place] [address],[place] [address], [place], [phone], [place] - [facility] 15:12:50 Lung mass 116625317 [facility] 2024 PRIYANKA DONNELLY MD [address] [place] [address], [place], [phone], [facility] - [facility] 15:12:53 Problem Notes None recorded. Procedures Surgical History Date Name Laterality Status Provider Name and Address Organization Details Recorded Time 11/08/19 25 Fiberoptic Laryngoscopy (Comprehensive) completed PRIYANKA DONNELLY MD [address] [place] [address], [phone], [facility] - [facility] 11/08/2024 15:10:10 Imaging Results None recorded. Procedure Notes None recorded. Medical Equipment None Reported. Allergies No known drug allergies Medications Name Sig Start Date Stop Date Status Note LastModified by Organization Details LastModified Time venlafaxine ER 75 mg capsule,ext ended release 24 hr TAKE 1 CAPSULE DAILY active Not Available Not Available No t Available atorvastati n 10 mg tablet TAKE 1 TABLET DAILY active Not Available Not Available No t Available Synthroid 100 mcg tablet TAKE 1 TABLET DAILY active Not Available Not Available No t Available venlafaxine ER 150 mg capsule,ext ended release 24 hr active Not Available Not Available Not Available gabapentin 800 mg tablet TAKE 1/2 TABLET TWICE A DAY active Not Available Not Available No t Available verapamil ER (SR) 240 mg tablet,exte nded release TAKE 1 TABLET DAILY active Not Available Not Available No t Available albuterol sulfate HFA 90 mcg/actuati on aerosol inhaler INHALE 2 PUFFS EVERY 6 HOURS NEEDED FOR SHORTNESS OF BREATH OR WHEEZING OR COUGH 09/25 completed Not Available Not Available Not Available Vitals Date Recorded Body height Body weight Provider Name and Address Organization Details Last Updated DateTime 11/08/2024 172.72 cm 04191.74 g Elvira Saldivar [place] - [facility] 11/08/2024 12:59:57 Social History None recorded. Functional Status None recorded. Mental Status None recorded. Family History Nothing Reported. Medical History Condition Response Allergies/Hayfever N Heart Problems Y Anxiety Y Tonsil Infections N Emphysema N Migraines N Thyroid Problems Y Glaucoma N Depression Y COPD N Developmental Delay N Nasal or Sinus Problems N Anemia N Immune System Disorder N Anesthesia Complications N Heart Attack ([place]) N Other Skin Condition N Diabetes N Rhinitis N Bleeding Disorder N Food Allergy N Arthritis N Hearing Loss N Hyperlipidemia N Cancer N Stroke N Dementia N Nasal polyps N Asthma N Sleep Disorder N GERD/Reflux N High Cholesterol N Liver Disease N Headaches N Fibromyalgia N Hypertension N Speech Delay N Kidney Disease N Past Encounters Encounter ID Performer Location Encounter Start Date Encounter Closed Date Diagnosis/Indication Diagnosis SNOMED-CT Code Diagnosis ICD10 Code Diagnosis Note [id number] PRIYANKA DONNELLY MD [facility] [address] [address] 11/08/2024 12:34:11 11/08/2024 15:57:41 Mass of tongue 758035640 R22.0 Continuous dependence on cigarette smoking 3073170417 29389 F17.210 Lung mass 589412647 R91. 8 Health Concerns Section Related Observation LastModified by Organization Detai ls LastModified Time None Recorded Concern Status LastModified by Organization Details LastModified Time None Recorded Advance Directives Directive None Recorded Payers Encounter Date Sequence Insurance Name Policy Number Policy Bruner Covered Member ID Bruner Member ID Guarantor Name 11/08/2024 1 [place] (MEDICARE REPLACEMENT PPO) [id number] Teddy Sanchez [id number] Teddy F Daniel Notes Date Note Type Note Provider Name and Address Organization Details Recorded Time 11/08/2024 text/html 73yo gentleman shayne hernandez presents today for evaluation of PET avidity of the oropharynx. He denies any dysphagia, dysphonia, dyspnea, weight loss, neck masses.He was found to have a lung lesion recently and underwent PET CT. He has a ~58 pack year smoking history (1/2 - 1ppd x 58ys).He denies additional significant health history. PET/CT imaging was reviewed and interpreted independently today. This shows avidity at the right base of tongue extending to the midline. PRIYANKA DONNELLY MD [address] [place] [address], [phone], [place] - [facility] 11/08/2024 15:13:12
--- OUTSIDE RECORDS SUMMARY | 2024-11-15 11:50 | XMS_ITS | Continuity of Care Document ---
Author Organization [place] - [facility], [facility] Address [address] [place] [address] Care Team Providers Care Field Staff Manager Name Role Phone LUTHER MAXWELL Referring Provider Assessment Encounter Date Assessment Date [...] available Not available Post Op 2024 09:00A M VALERY ARMSTRONG PA-C Not available Not available Not [...] Recorded Time Mass of head and/or neck 202542812 Active 2024 PRIYANKA DONNELLY MD [address], [place], [address], [place] - [facility] 13:34:45 Mass of tongue 679868125 Active 2024 PRIYANKA DONNELLY MD 100 [facility], [place], [address], [place] [facility] 13:34:55 Continuous dependence on cigarette smoking 9317818441290 08 [facility] 2024 PRIYANKA DONNELLY MD [address] [facility] [place], [place], [address], [place] [facility] 15:12:50 Lung mass 235623957 [facility] 2024 PRIYANKA DONNELLY MD 100 [facility], [place], [address], [facility] - [facility] 15:12:53 Problem Notes None recorded. Procedures Surgical History Date Name Laterality Status Provider Name and Address Organization Details Recorded Time 11/08/19 25 Fiberoptic Laryngoscopy (Comprehensive) completed PRIYANKA DONNELLY MD 100 [facility],[place] [address], [place], [address], [facility] - [facility] 11/08/2024 15:10:10 Imaging Results None recorded. Procedure [...] Details Last Updated DateTime 11/08/2024 172.72 cm 58140.74 g Elvira Saldivar [place] - [facility] 11/08/2024 12:59:57 Social History None recorded. Functional [...] Disorder N Anesthesia Complications N Heart Attack ([place]) N Other Skin Condition N Diabetes N Rhinitis N Bleeding Disorder N Food Allergy N Arthritis N Hearing Loss N Hyperlipidemia N Cancer N Stroke N Dementia N Nasal polyps N Asthma N High Cholesterol N Sleep Disorder N GERD/Reflux N Liver Disease N Headaches N Fibromyalgia N Hypertension N Speech Delay N Kidney Disease N Past Encounters Encounter ID Performer Location Encounter Start Date Encounter Closed Date Diagnosis/Indication Diagnosis SNOMED-CT Code Diagnosis ICD10 Code Diagnosis Note [id number] PRIYANKA DONNELLY MD [facility] [address] [address] 11/08/2024 12:34:11 11/08/2024 15:57:41 Mass of tongue 185270048 R22.0 Continuous dependence on cigarette smoking 8451859514 48592 F17.210 Lung mass 490406718 R91. 8 Health Concerns Section Related Observation LastModified by Organization Detai ls LastModified Time None Recorded Concern Status LastModified by Organization Details LastModified Time None Recorded Payers Encounter Date Sequence Insurance Name Policy Number Policy Bruner Covered Member ID Bruner Member ID Guarantor Name 11/08/2024 [address] [facility]: MEDICARE PPO BLUE (MEDICARE REPLACEMENT PPO) [id number] Teddy Sanchez [id number] Teddy Sanchez Notes Date Note Type Note Provider Name [...] extending to the midline. PRIYANKA DONNELLY MD [address] [place] [address], [phone], [place] - [facility] 11/08/2024 15:13:12
== END 2024-11-15 10:31 | disposition home or self-care (01) ==
LOC: HO.RESP 10:30
PROVIDERS: PCP Internal Medicine; Visit Provider Surgery
DX: R91.8 Other nonspecific abnormal finding of lung field (principal)
CPT/HCPCS: 94010; 94640; 94727; 94729

== ENCOUNTER → 2024-11-15 10:33 | Outpatient (BNV) | payer MEDICARE, MEDICAID, SELFPAY | PROVIDERS: PCP Internal Medicine; Visit Provider Hospitalist | DX: R91.8 Other nonspecific abnormal finding of lung field (principal) | CPT/HCPCS: 94060; 94727; 94729 ==

== ENCOUNTER → 2024-11-28 08:50 | Day surgery (SDC) | payer MEDICARE, MEDICAID, SELFPAY ==
--- OUTSIDE RECORDS SUMMARY | 2024-11-28 09:10 | XMS_ITS | Continuity of Care Document ---
Author Organization [place] - [facility], [facility] Address [address] [place] [address] Care Team Providers Care Clinic Coordinator Name Role Phone LUTHER MAXWELL Referring Provider [...] Organization Details Last Modified Time Details Appointments Post Op 2024 09:00A M VALERY ARMSTRONG PA-C Not available Not available Not available Lab None recorded . Referral None recorded . Procedures None recorded . Surgeries laryngos copy, direct, with biopsy (SURG) 2024 025 Not available 11/08/2024 13:35:37 Imaging None recorded . Medication Orders None recorded . Patient TargetsNo targets recorded. Patient InstructionsNo instructions recorded. Reason for Referral None Reported. Results Created Date Observation Date Name Description Value Unit Range Abnormal Flag Note LastModifiedBy Organization Detail LastModifiedTime 11/21/19 25 11/21/2024 H&P No observ ation record ed. [address], [address], 11/23/2024 09:02:03 11/21/19 25 11/21/2024 brief op note No observ ation record ed. [address], [address], 11/23/2024 09:02:03 11/21/19 25 11/21/2024 op note No observ ation record ed. [address], [address], 11/23/2024 09:02:03 Result Notes None recorded. Problems Name Problem SNOMED Code Status Onset Date Resolution Date Notes Provider Name and Address Organization Details Recorded Time Mass of head and/or neck 910183457 Active 2024 PRIYANKA DONNELLY MD [address] [place] [address], [place], [address], [place] - [facility] 13:34:45 Mass of tongue 755035296 Active 2024 PRIYANKA DONNELLY MD [address] [place] [address], [place], [address], [place] - [facility] 13:34:55 Continuous dependence on cigarette smoking 4772624809950 08 Active 2024 PRIYANKA DONNELLY MD [address] [place] [address], [place], [address], [place] - [facility] 15:12:50 Lung mass 140853035 Active 2024 PRIYANKA DONNELLY MD [address] [place] [address], [place], [address], [facility] - [facility] [place] 15:12:53 Problem Notes None recorded. Procedures Surgical History Date Name Laterality Status Provider Name and Address Organization Details Recorded Time 11/21/19 25 direct laryngoscopy with biopsy completed HUGO SUGGS MD [address] [facility] [address], [place], [address], [facility] 11/21/2024 15:22:09 11/08/19 25 Fiberoptic Laryngoscopy (Comprehensive) completed PRIYANKA DONNELLY MD [address] [facility] [address], [place], [address], [facility] 11/08/2024 15:10:10 Imaging Results None recorded. [...] Details Last Updated DateTime 11/08/2024 172.72 cm 15085.74 g Elvira Saldivar [place] - [facility] 11/08/2024 12:59:57 Social History None recorded. [...] SNOMED-CT Code Diagnosis ICD10 Code Diagnosis Note [id number] PRIYANKA DONNELLY MD [facility] [address] [place] [address] 11/08/2024 12:34:11 11/08/2024 15:57:41 Mass of tongue 265318542 R22.0 Continuous dependence on cigarette smoking 8721346511 [address] F17.210 Lung mass 702366560 R91. 8 Health Concerns Section Related Observation LastModified by Organization Detai ls LastModified Time None Recorded Concern Status LastModified by Organization Details LastModified Time None Recorded Payers Encounter Date Sequence Insurance Name Policy Number Policy Bruner Covered Member ID Bruner Member ID Guarantor Name 11/08/2024 1 [facility]: MEDICARE PPO BLUE (MEDICARE REPLACEMENT PPO) [id number] [facility] [id number] [facility] Notes Date Note Type Note Provider Name [...] extending to the midline. PRIYANKA DONNELLY MD [address] [place] [address], [place], [address], [facility] - [facility] 11/08/2024 15:13:12
--- OUTSIDE RECORDS SUMMARY | 2024-11-28 09:10 | XMS_ITS | Clinical Summary ---
Author Organization [employer] Address [address] [facility] [address] [place] [address] Care Team Providers Care Gui Developer Name Role Phone Unavailable Primary Care Provider Unavailabl e Social History Tobacco Use Types Packs/Day Years Used Date Smoking Tobacco: Never Assessed Sex and Gender Information Value Date Recorded Sex Assigned at Male 08/25/2022 10:26 AM EDT Legal Sex Male 10:26 AM EDT Gender Identity Not on file Sexual Orientation Not on file Plan of Treatment Health Maintenance Due Date Last Done Comments CT Colonography 1951 Colonoscopy 1951 Colorectal Cancer Screening 1951 Depression Screening 1951 FIT DNA/Cologuard 1951 FIT 1951 FOBT 1951 Lipid Panel 1951 Sigmoidoscopy 1951 Alcohol/Substance Use Screening 1963 Tobacco Screening 1963 DTaP/Tdap/Td Vaccines (1 - Tdap) 1970 Pneumococcal Vaccine: 50+ Ye ars (1 of 1 - PCV) 2001 Zoster Vaccines (1 of 2) 2001 COVID-19 Vaccine ( - 2023-2 5 season) 2024 Influenza Vaccine (#1) 2024 RSV Patients and Pa tients Aged 60 years or older (1 - 1-dose 75+ series) 2026 HIB [...] patient's age to complete this topic Meningococcal Vaccine Aged Out No maria e ricardo eligible based on patient's age to complete this topic RSV under 20 months Aged Out No longe r eligible based on patient's age to complete this topic Rotavirus Vaccines Aged Out No longer eligible based on patient's age to complete this topic
--- OUTSIDE RECORDS SUMMARY | 2024-11-28 09:10 | XMS_ITS | Encounter Summary ---
Author Organization [employer] Address [address] [facility] 7t [place] [address] Care Team Providers Care Vibration Engineer Name Role Phone Unavailable Primary Care Provider Unavailabl e Encounter Details Date Type Department Care Team (Latest Contact Info) Description 01/25/2019 Abstract [facility] CONVERSIONS Dental, Provider, DDS Social History Tobacco Use Types Packs/Day Years Used Date Smoking Tobacco: Never Assessed Sex and Gender Information Value Date Recorded Sex Assigned at Male 08/25/2022 10:26 AM EDT Legal Sex Male 10:26 AM EDT Gender Identity Not on file Sexual Orientation Not on file documented as of this encounter Plan of Treatment Not on file documented as of this encounter Visit Diagnoses Not on filedocumented in this encounter
--- OUTSIDE RECORDS SUMMARY | 2024-11-28 09:10 | XMS_ITS | Data Portability ---
Author Organization [place] - [facility], Allergy Address [address] [place] [address] Care Team Providers Care Unit Control Clerk Name Role Phone LUTHER MAXWELL Referring Provider [phone] Assessment Encounter Date Assessment Date Assessment LastModified [...] Abnormal Flag Note LastModifiedBy Organization Detail LastModifiedTime 11/21/1911/21/2024 H&P No observ ation record ed. [address], [address], 11/23/2024 09:02:03 11/21/19 25 11/21/2024 brief op note No observ ation record ed. [address], [address], 11/23/2024 09:02:03 11/21/19 25 11/21/2024 op note No observ ation record ed. [address], [address], 11/23/2024 09:02:03 Result Notes None recorded. Problems Name Problem SNOMED Code Status Onset Date Resolution Date Notes Provider Name and Address Organization Details Recorded Time Mass of head and/or neck 735591207 Active 2024 PRIYANKA DONNELLY MD [address] [address], [facility] [place], [address], [place] - [facility] [place] 13:34:45 Mass of tongue 854762272 Active 2024 PRIYANKA DONNELLY MD [address] [address], [facility] [place], [address], [place] - [facility] 13:34:55 Continuous dependence on cigarette smoking 4303702727242 08 Active 2024 PRIYANKA DONNELLY MD [address] [address], [facility] [place], [address], [place] - [facility] 15:12:50 Lung mass 683388286 Active 2024 PRIYANKA DONNELLY MD [address] [place] [address], [facility] [place], [address], [place] - [facility] 15:12:53 Problem Notes None recorded. Procedures Surgical History Date Name Laterality Status Provider Name and Address Organization Details Recorded Time 11/21/19 25 direct laryngoscopy with biopsy completed HUGO SUGGS MD [address] [place] [address], [place], [address], [facility] 11/21/2024 15:22:09 11/08/19 25 Fiberoptic Laryngoscopy (Comprehensive) completed PRIYANKA DONNELLY MD 100 [facility] [address], [place], [address], [facility] 11/08/2024 15:10:10 Imaging Results Imaging Date Name Status LastModified by Organiz ation Details LastModified Time 11/21/2024 H&P completed [address], [address], 11/23/2024 09:02:03 11/21/2024 brief op note completed [address], [address], 11/23/2024 09:02:03 11/21/2024 op note completed [address], [address], 11/23/2024 09:02:03 Procedure Notes None recorded. Medical Equipment None [...] Details Last Updated DateTime 11/08/2024 172.72 cm 47607.74 g Elvira Saldivar [place] - [facility] 11/08/2024 12:59:57 Social History None recorded. Functional [...] Disorder N Anesthesia Complications N Heart Attack ([place]) N Other Skin Condition N Diabetes N [...] SNOMED-CT Code Diagnosis ICD10 Code Diagnosis Note [id number] PRIYANKA DONNELLY MD [facility] of [address] [address] 11/08/2024 12:34:11 11/08/2024 15:57:41 Mass of tongue 684871185 R22.0 Continuous dependence on cigarette smoking 4560787704 [address] F17.210 Lung mass 173925701 R91. 8 Health Concerns Section Related Observation LastModified by Organization Detai ls LastModified Time None Recorded Concern Status LastModified by Organization Details LastModified Time None Recorded Advance Directives Directive None Recorded Payers Encounter Date Sequence Insurance Name Policy Number Policy Bruner Covered Member ID Bruner Member ID Guarantor Name 11/08/2024 1 [employer]UE (MEDICARE REPLACEMENT PPO) [id number] Teddy Sanchez [id number] Teddy Sanchez Notes Date Note Type [...] extending to the midline. PRIYANKA DONNELLY MD [address] [place] [address], [address], [facility] - [facility] 11/08/2024 15:13:12
--- OUTSIDE RECORDS SUMMARY | 2024-11-28 09:10 | XMS_ITS | Clinical Summary ---
Author Organization [facility] Address [address] [place] [address] Phone Care Team Providers Care Drill Doctor Name Role Phone Jessica Berry MD Primary [...] each day. 12/31/2011 11/11/2024 Discontinued( Formulary change) Encounters Date Type Department Care Team Description 11/21/2024 12:45 PM EST Anesthesia Event [facility] Main OR [address] [place] [address] David Olsen DO Hard, Shannon, CRNA 11/21/2024 11:45 AM EST - 11/21/2024 1:[address] [facility] OR [address] [place] [address] Sharee Carroll MD DIRECT LARYNGOSCOPY W/ BIOPSY [[id number] (CPT??)] 11/21/2024 10:06 AM EST - 11/21/2024 3:51 PM EST Hospital Encounter [facility] OR [address] [place] [phone] Sharee Carroll MD Localized swelling, mass and lump, head Discharge Disposition: Home or Self Care from Last 3 Months Surgical History Surgery Date Site/Laterality Comments AORTIC VALVE SURGERY growth removed from aortic valve TONSILLECTOMY Medical History Medical History Date Comments Dysphagia occasional Hypothyroidism Depression Anxiety Neuromuscular disorder (CMS/HCC) peripheral neuropathy Joint pain r knee Deviated septum Social History Tobacco Use Types Packs/Day Years Used Date Smoking Tobacco: Every Day Cigarettes Smokeless Tobacco: Never Tobacco Cessation:Ready to Q uit: Not Asked; Counseling Given: Not Answered Alcohol Use Standard Drinks/Week Comments Yes 0 (1 standard drink = 0.6 oz pur e alcohol) RARELY Interpersonal Safety Answer Date Record ed Physical Abuse 11/21/2024 Verbal Abuse 11/21/2024 Sex and Gender Information Value Date Recorded Sex Assigned at Male 11/18/2024 11:10 AM EST Gender Identity Male 11/18/2024 11:10 AM EST Sexual Orientation Straight 11/18/2024 11 :10 AM EST Job Start Date Occupation Industry Not on file Not on file Not on file Obstetrics History Last Filed Vital Signs Vital Sign Reading Time Taken Comments Blood Pressure 126/57 11/21/2024 2:44 PM EST Pulse 64 11/21/2024 2:44 PM EST Temperature 36.3 ??C (97.3 ??F) 11/21/2024 2:44 PM ES T Respiratory Rate 20 11/21/2024 2:44 PM EST Oxygen Saturation 94% 11/21/2024 2:44 PM EST Inhaled Oxygen Concentration - - Weight 88.9 kg (196 lb) 11/21/2024 10:35 AM EST Height 172.7 cm (5' 8 ) 11/21/2024 10:35 AM EST Body Mass Index 29.8 11/21/2024 10:35 AM EST Plan of Treatment Health Maintenance Due Date Last Done Comments Pneumococcal Vaccine: 65+ Ye ars (1 of 2 - PCV) 1957 DTaP,Tdap,and Td Vaccines (1 - Tdap) 1970 Hepatitis A Vaccines (1 of 2 - Risk 2-dose series) 1970 Zoster Vaccines (1 of 2) 2001 Abdominal Aortic Aneurysm (A AA) Screen 10/05/2022 Cholesterol Screening (Lipid Panel) 10/05/2022 Colorectal Cancer Screening: Colonoscopy 10/05/2022 Depression Screening 10/05/2022 Hepatitis C Screening 10/05/2022 Hypertension/CHF/CAD Annual BMP Blood Test 10/05/2022 Medicare Annual Wellness Visit 10/05/2022 Social Influencers of Health Screening 10/05/2022 COVID-19 Vaccine (1 - 2023-2 5 season) 2024 Influenza Vaccine (#1) 2024 Falls Risk Assessment 11/21/2025 11/21/2024 RSV Immunization Patients 60 + Years Old [...] on patient's age to complete this topic Medical Devices Implanted Type Area Negotiator Sales Device Identifier Shelf Expiration Date Model / Serial / Lot Prolaryn Plus Voice Injection 1cc - Sn/A - [id number] Implanted:Qty: 1 on 11/21/2024 by Sharee Carroll MD at [facility] [employer] N/A: Throat [employer] [facility] [id number] / N/A / N/A Procedures Procedure Name Priority Date/Time Associated Diagnosis Comments TISSUE EXAM Routine 11/21/2024 1:11 PM EST Localized swelling, mass and lump, head TH AN ENDOTRACHEAL(NO CHARGE) Routine 11/21/2024 1:03 PM EST LA LARYNGOSCOPY DIRECT OPERATIVE WITH BIOPSY 11/21/2024 12:45 PM EST Localized swelling, mass and lump, head PROCEDURAL ECG Routine 11/21/2024 10:37 AM EST ECG OUTSIDE 11/21/2024 from Last 3 Months Results * Tissue exam (11/21/2024 1:11 PM EST) Final Diagnosis A. Base of tongue, right lateral, biopsy: - Squamous mucosa with a prominent associated lymphoid infiltrate including occasional reactive follicles, compatible with lingual tonsil. - Immunohistochemical studies were performed and the results are as follows: p16: Negative (no block-like immunoreactivity identified). CD3: Subset of small lymphocytes immunoreactive. CD5: Subset of small lymphocytes immunoreactive (similar to CD3). CD10: Few aggregates of lymphocytes immunoreactive. CD20: Majority of lymphocytes immunoreactive (high background). CD21: Highlights follicular dendritic cell meshworks (correlates with CD10 distribution). BCL2: Aggregates of lymphocytes are negative (correlates with CD10 and CD21 distribution). Cyclin D1: Rare single cells immunoreactive (mostly endothelial cells and epithelial cells). PAX5: Many lymphocytes immunoreactive (generally nodular distribution). Interpretation: The immunohistochemical studies show abundant B cells (highlighted by CD20 and PAX5) including occasional follicles (highlighted by their associated NF40-qszheozs dendritic cell meshwork and CD10). The RB53-kqofrkgo follicle center cells appear largely negative for BCL2 and there is no coexpression of CD5 by the B cells. Cyclin D1 is negative. The overall findings support interpretation as a reactive lymphoid population. The p16 immunohistochemical study shows no block-like staining in the epithelium. B. Tongue, right glossotonsillar sulcus, biopsy: - Edematous squamous mucosa with focally dense lymphoid infiltrate and detached fragments of tonsillar type epithelium also present. - C. Base of tongue, midline, biopsy: - Squamous mucosa with chronic inflammation. D. Base of tongue, right lateral, biopsy: - Squamous mucosa with a prominent associated lymphoid infiltrate including occasional reactive follicles, compatible with so-called lingual tonsil. - Immunohistochemical studies were performed and the results are as follows: p16: Negative (no block-like immunoreactivity identified). CD3: Subset of small lymphocytes immunoreactive. CD5: Subset of small lymphocytes immunoreactive (similar to CD3). CD10: Few aggregates of lymphocytes immunoreactive. CD20: Majority of lymphocytes immunoreactive (high background). CD21: Highlights follicular dendritic cell meshworks (correlates with CD10 distribution). BCL2: Aggregates of lymphocytes are negative (correlates with CD10 and CD21 distribution). Cyclin D1: Rare single cells immunoreactive (mostly endothelial cells and epithelial cells). PAX5: Many lymphocytes immunoreactive (generally nodular distribution). Interpretation: The immunohistochemical studies show abundant B cells (highlighted by CD20 and PAX5) including occasional follicles (highlighted by their associated WQ40-vdkdhcrz dendritic cell meshwork and CD10). The MZ10-aoysvmly follicle center cells appear largely negative for BCL2 and there is no coexpression of CD5 by the B cells. Cyclin D1 is negative. The overall findings support interpretation as a reactive lymphoid population. The p16 immunohistochemical study shows no block-like staining in the epithelium. 1:43 PM [facility] Clinical Information Significant smoking history, Right base of tongue PET avid mass. 1:43 PM [facility] Gross Description A. Tongue, Right Lateral Base Of Tongue: Labeled right lat tongue . Received in formalin with a Telfa pad are two irregular disrupted friable bojorquez-pink rubbery tissue fragments, each measuring approximately 0.5 cm in greatest dimension, which are wrapped in paper and submitted in toto in one cassette, two pieces, multiple levels on one slide. B. Tongue, Right Glossotonsillar Sulcus: Labeled right jeimy tongue . Received in formalin with a Telfa pad is a 0.6 cm aggregate of irregular bojorquez-pink rubbery tissue fragments which is wrapped in paper and submitted in toto in one cassette, multiple pieces, multiple levels on one slide. C. Tongue, Midline Base Of Tongue: Labeled midline b, tongue . Received in formalin with a Telfa pad are two irregular bojorquez-pink rubbery tissue fragments, each measuring approximately 0.3 cm in greatest dimension, which are wrapped in paper and submitted in toto in one cassette, two pieces, multiple levels on one slide. D. Tongue, Right Lateral Base Of Tongue Inferior To First Specimen: Labeled right lat tongue . Received in formalin with Telfa pads is a 0.7 cm aggregate of irregular bojorqeuz-pink rubbery tissue fragments, which is wrapped in paper and submitted in toto in one cassette, multiple pieces, multiple levels on one slide. CARLOS 1:43 PM EST [facility] Disclaimer NOTE: The immunohistochemical tests and in situ hybridization tests were developed and their performance characteristics were determined by [facility]. They have not been cleared or approved by the U.S. Food and Drug Administration. The FDA has determined that such clearance or approval is not necessary. These tests are used for clinical purposes. They should not be regarded as investigational or for research. This laboratory is certified under the Clinical Laboratory Improvement Amendments of 1988 (CLIA) as qualified to perform high complexity clinical laboratory testing. (controls appropriate) Unless otherwise specified, all tissue is 10% NB formalin fixed and paraffin embedded. 1:43 PM EST [facility] Tissue Tongue structure / Unknown 11/21/2024 1:11 PM EST 11/21/2024 3:09 PM EST Comment:Significant smoking history, Right base of tongue PET avid mass. Tissue specimen (specimen) Tongue structure / Unknown 11/21/2024 1:12 PM EST 11/21/2024 3:09 PM EST Comment:Significant smoking history, Right base of tongue PET avid mass. Tissue specimen (specimen) Tongue structure / Unknown 11/21/2024 1:13 PM EST 11/21/2024 3:09 PM EST Comment:Significant smoking history, Right base of tongue PET avid mass. Tissue specimen (specimen) Tongue structure / Unknown 11/21/2024 1:15 PM EST 11/21/2024 3:09 PM EST Comment:Significant smoking history, Right base of tongue PET avid mass. Sharee Carroll MD LAB PATHOLOGY ORDERA BLES [facility] [address] [place] [address], * TH AN ENDOTRACHEAL(NO CHARGE) (11/21/2024 1:03 PM EST) Kristi Perez CRNA - 11/21/2024 1:03 PM EST Kristi Reis CRNA ? 11/21/2024 ??1:05 PM General Information and Staff Patient location during procedure: OR Anesthesiologist: David Olsen DO Resident/FORKLIFT MATERIAL HANDLER: Kristi Reis CRNA Performed: resident/FORKLIFT MATERIAL HANDLER/CAA Performed by: Kristi Reis CRNA Authorized by: David Olsen DO ?? Intubation Urgency: elective Final Airway Details Successful airway: ETT Cuffed: yes Successful intubation technique: video laryngoscopy Facilitating devices/methods: intubating stylet Endotracheal tube insertion site: oral Blade: Arlet Blade size: #3 ETT size (mm): 7.0 Cormack-Lehane Classification: grade IIa - partial view of glottis Placement verified by: chest auscultation Measured from: lips ETT to lips (cm): 22 Number of attempts at approach: 1 Number of other approaches attempted: 0Final airway type: endotracheal airway Indications and Patient Condition Indications for airway management: anesthesia Spontaneous ventilation: present Sedation level: Yes Preoxygenated: yes Soft Tissue Damage: No Dentition Unchanged: Yes Patient position: sniffing MILS maintained throughout Mask difficulty assessment: 2 - vent by mask + OA or adjuvant +/- NMBA Start Time: 11/21/2024 1:04 PMStop Time: 11/21/2024 1:04 PM David Olsen DO ANESTHESIA ORDERABLE S * ECG 12 lead - Procedural (No Charge) (11/21/2024 10:37 AM EST) Ventricular Rate ECG 63 BPM GEMUSE Atrial Rate 63 BPM GEMUSE P-R Interval 228 ms GEMUSE QRS Duration 160 ms GEMUSE Q-T Interval 476 ms GEMUSE QTc 487 ms GEMUSE R [place] -45 degrees GEMUSE T [place] 109 degrees GEMUSE ECG Interpretation Sinus rhythm with 1st degree A-V block Left bundle branch block When compared with ECG of 27-NOV-2012 13:13, Left bundle branch block is now Present Confirmed by DARINEL BARAHONA ([id number]) on 11/21/2024 9:18:02 PM GEMUSE 11/21/2024 10:3 7 AM EST 11/21/2024 9:18 PM EST David Olsen DO ECG ORDERABLES GEMUSE * ECG-Outside (11/21/2024) Provider Onbase MD ECG ORDERABLES from Last 3 Months Advance Directives Documents on File Type Date Recorded Patient Marketing Research Coordinator Expl anation Health Care Decision (hx) 11/25/2012 AD ZHANG DIRECTIVE Health Care Decision (hx) 11/25/2012 AD ZHANG DIRECTIVE Health Care Decision (hx) 11/25/2012 AD ZHANG DIRECTIVE Health Care Decision (hx) 11/25/2012 AD ZHANG DIRECTIVE Health Care Decision (hx) 11/25/2012 AD ZHANG DIRECTIVE Care Teams Drill Doctor Relationship Specialty Start Date End Date Jessica Berry MD [address] [place] [address] PCP - General Internal Medicine 08/03/12
--- OUTSIDE RECORDS SUMMARY | 2024-11-28 09:11 | XMS_ITS | Encounter Summary ---
Author Organization [facility] Address [address] [place] [address] Care Team Providers Care Glass Checker Name Role Phone Jessica Berry MD Primary Care Provider [phone] Reason for Visit * Auth/Cert (Routine) Specialty Diagnoses / Procedures Referred By Contac t Referred To Contact Diagnoses Localized swelling, mass and lump, head Procedures HI LARYNGOSCOPY DIRECT OPERATIVE WITH BIOPSY DIRECT LARYNGOSCOPY W/ BIOPSY Sharee Carroll MD [facility] [address] [place] [id number] [facility] Main Or [address] [place] [id number] Referral ID Status Reason Start Date Expiration Date Visits Re quested Visits Authorized [id number] 1 1 Encounter Details Date Type Department Care Team (Latest Contact Info) Description 11/21/2024 10:06 AM [facility] - 11/21/2024 3:51 PM [facility] Hospital Encounter [facility] Main OR [address] [place] [address] Sharee Carroll MD [facility] [address] [place] [phone] Localized swelling, mass and lump, head Discharge Disposition: Home or Self Care Social History Tobacco Use Types Packs/Day Years [...] file Not on file Not on file documented as of this encounter Last Filed Vital Signs Vital Sign Reading [...] Mass Index 29.8 11/21/2024 10:35 AM EST documented in this encounter Discharge Summaries * Sharee Carroll MD - 11/21/2024 2:24 PM EST Tylenol or ibuprofen as needed for pain Salt water gargles * Sharee Carroll MD - 11/21/2024 2:23 PM EST Persistent bleeding Trouble swallowing even liquids * Sharee Carroll MD - 11/21/2024 2:23 PM EST Soft diet and advance to regular as tolerated * Sharee Carroll MD - 11/21/2024 2:22 PM EST No strenuous activity documented in this encounter Discharge Instructions * Attachments The following attachments cannot be sent through Care Everywhere. * General Anesthesia (Ukrainian) * Laryngoscopy: Direct Rigid: Post-op (Ukrainian) documented in this encounter Medications at Time of Discharge Medication Sig Dispensed Refills Start Date End Date atorvastatin (LIPITOR) 10 mg tablet Take 1 tablet (10 mg total) by mouth at bedtime. gabapentin (NEURONTIN) 800 mg tablet Take 0.5 tablets (400 mg total) by mouth 2 (two) times a day. levothyroxine (SYNTHROID, LEVOTHROID) 100 mcg tablet Take 1 tablet (100 mcg total) by mouth 1 (one) time each day before breakfast. venlafaxine (EFFEXOR) 75 mg tablet Take 1 tablet (75 mg total) by mouth 1 (one) time each day. venlafaxine XR (EFFEXOR-XR) 150 mg 24 hr capsule Take 1 capsule (150 mg total) by mouth at bedtime. Do not crush or chew. verapamil SR (CALAN-SR) 240 mg CR tablet Take 1 tablet (240 mg total) by mouth 1 (one) time each day. 02/04/2022 documented as of this encounter Discharge Disposition Disposition Code Departure Means Destination Comment s Home or Self Care Wheelchair Home documented in this encounter H&P Notes * Sharee Carroll MD - 11/21/2024 12:07 PM EST Allergies Reviewed Allergies NKDA Medications Reviewed Medications atorvastatin 10 mg tablet TAKE 1 TABLET DAILY 08/16/24 filled surescripts gabapentin 800 mg tablet TAKE 1/2 TABLET TWICE A DAY 10/11/24 filled surescripts Synthroid 100 mcg tablet TAKE 1 TABLET DAILY 09/03/24 filled surescripts venlafaxine ER 150 mg capsule,extended release 24 hr 09/09/24 filled surescripts venlafaxine ER 75 mg capsule,extended release 24 hr TAKE 1 CAPSULE DAILY 09/03/24 filled surescripts verapamiL ER (SR) 240 mg tablet,extended release TAKE 1 TABLET DAILY 08/16/24 filled surescripts Vaccines None recorded. Problems Reviewed Problems Mass of head and/or neck - Onset: 11/08/2024 Mass of tongue - Onset: 11/08/2024 Lung mass - Onset: 11/08/2024 Continuous dependence on cigarette smoking - Onset: 11/08/2024 Social History Reviewed Social History Substance Use Do you or have you ever smoked tobacco?: Current every day smoker Surgical History Reviewed Surgical History Past Medical History Reviewed Past Medical History Anxiety: Y Depression: Y Heart Problems: Y Thyroid Problems: Y HPI 73yo gentleman who presents today for evaluation of PET avidity of the oropharynx. He denies any dysphagia, dysphonia, dyspnea, weight loss, neck masses. He was found to have a lung lesion recently and underwent PET CT. He has a ~58 pack year smoking history (1/2 - 1ppd x 58ys). He denies additional significant health history. PET/CT imaging was reviewed and interpreted independently today. This shows avidity at the right base of tongue extending to the midline. ROS ROS as noted in the HPI Physical Exam Vitals: 11/21/24 1025 BP: (!) 146/66 Pulse: 61 Resp: 16 Temp: 36.5 ??C (97.7 ??F) SpO2: 100% Head/Face: Inspection: no masses, lesions, scarring, erythema, or swelling and atraumatic. Facial strength: normal strength and symmetry and no synkinesis or facial tic. Sinuses: no maxillary tenderness, frontal tenderness, or ethmoid tenderness. Salivary Glands: no parotid tenderness or masses andno submandibular tenderness or masses. Inspection of the TMJ: normal ROM and alignment of upper andlower teeth, no popping with motion or pain with dynamic loading, and symmetric opening. Palpation of the TMJ: non-tender and no crepitus. Nose:: Nasal Skin: no lesions, lacerations, scars, erythema, or edema. Nasal Mucosa edema and hypertrophy and intact and moist. Septum: normal. Turbinates: right inferior turbinate hypertrophy 3+ andleft inferior turbinate hypertrophy 3+. Oral Cavity/Mouth: Lips, teeth, gums: normal lips, gums, and dentition. Oral Mucosa no inflammation, swelling, rash, lesions, ulcers, masses, or leukoplakia and moist. Palate: normal hard palate and soft palate. Tongue: no swelling, lesions, erythema, ankyloglossia, or benign migratory glossitis and normal size; palpable fullness at right base of tongue. Tonsils: no lesions, erythema, exudate, enlargement, crypts, tonsilloliths, or mass. Posterior pharynx: no erythema, exudate, ulcer, mass, lesion, or white patches. Neck:: Inspection and Palpation no mass, crepitus, pain, or tenderness and supple, trachea midline,and full ROM. Thyroid no thyromegaly, tenderness, or nodules. Heart regular Lungs no stridor or wheeze Procedure Documentation Fiberoptic Laryngoscopy (Comprehensive): Fiberoptic Laryngoscopy After informed consent was discussed and obtained for fiberoptic laryngoscopy, the flexible laryngoscope was inserted the nasal cavity after appropriate decongestion. Nasal cavity at his previous visit revealed normal sinonasal mucosa. The nasopharynx was examined and found to be within normal limits. Hypopharynx, oropharynx and larynx are completely visualized. Right base of tongue with significant and asymmetric fullness with R>L thickening. The pyriforms, vallecula were adequately examined. The larynx and true vocal cords are adequately examined as well as the subglottis and epiglottis. The left and rightvocal cords are mobile. There are no abnormal findings. The postcricoid region is within normal limits. Pyriform sinuses show no pooling or masses The interarytenoid area is normal Endoscope was then removed from the nasal cavity. The procedure was tolerated well. No bleeding was present within the nose upon completion of the procedure. Assessment / Plan 1. Right base of tongue PET avidity [...] exam, he has palpable fullness at the r ight base of tongue with fullness on fiberoptic laryngoscopy. He also has hyperintensity on his PET/CT. Given these findings as well as his smoking history, I recommend direct laryngoscopy with biopsy ofthe area with the next available surgeon. Risks and benefits were discussed the patient and he would like to proceed. 1. Mass of tongue R22.0: Localized swelling, mass and lump, head LARYNGOSCOPY, DIRECT, WITH BIOPSY (SURG) Procedure code: 24901 2. Continuous dependence on cigarette smoking F17.210: Nicotine dependence, cigarettes, uncomplicated 3. Lung mass R91.8: Other nonspecific abnormal finding of lung field documented in this encounter Procedure Notes * Aysha Stinson RN - 11/21/2024 3:09 PM EST Discharge instructions reviewed with and patient with stated understanding * Sharee Carroll MD - 11/21/2024 1:05 PM EST DIRECT LARYNGOSCOPY W/ BIOPSY OPERATIVE NOTE Date: 11/21/2024 Location: [facility] OR Name: Teddy Sanchez, : 1950, Diagnosis Pre-op Diagnosis * Localized swelling, mass and lump, head [R22.0] Post-op Diagnosis * Localized swelling, mass and lump, head [R22.0] Procedures DIRECT LARYNGOSCOPY W/ BIOPSY [address]854 - HI LARYNGOSCOPY DIRECT OPERATIVE WITH BIOPSY Additional Procedures Indications: Teddy Sanchez is an 74 y.o. 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 Priority Lab ID 1 Tongue Tissue TISSUE EXAM Sharee Carroll MD 11/21/24 1311 No Description: Right Lateral Base Of Tongue 2 Tongue Tissue TISSUE EXAM Sharee Carroll MD 11/21/24 1312 Description: Right Glossotonsillar Sulcus 3 Tongue Tissue TISSUE EXAM Sharee Carroll MD 11/21/24 1313 No Description: Midline Base Of Tongue 4 Tongue Tissue TISSUE EXAM Sharee Carroll MD 11/21/24 1315 No Description: Right Lateral Base Of Tongue Inferior To First Specimen Procedure Details: The patient was taken to the operating room, placed under general anesthesia by the anesthesia team. He positioned, prepped and draped in usual fashion. A timeout was performed indicating patient and procedure. I began by placing a mouthguard over his maxillary dentition. I then placed the anterior commissure scope for visualization. The epiglottis, arytenoids, piriform sinuses, true cords were noted to be normal. There was some slight irregularity with palpation of the rightbase of tongue. There is no ulcerative or friable mass, but the mucosa did appear slightly more dusky in parts and there was some soft tissue hypertrophy. I took biopsies from several locations. Hemostasis was achieved with Afrin-soaked pledgets. He was turned back to anesthesia for extubation and awakening. All surgical counts were correct. Findings: right base of tongue hypertrophy, no ulcerative or friable lesion Complications: None; patient tolerated the procedure well. Disposition: PACU - hemodynamically stable. Condition: stable * Sharee Carroll MD - 11/21/2024 1:05 PM EST Date: 11/21/2024 Location: [facility] OR Name: Teddy Sanchez, : 1950, Diagnosis Pre-op Diagnosis * Localized swelling, mass and lump, head [R22.0] Post-op Diagnosis * Localized swelling, mass and lump, head [R22.0] Procedures DIRECT LARYNGOSCOPY W/ BIOPSY [address] - HI LARYNGOSCOPY DIRECT OPERATIVE WITH BIOPSY Additional Procedures Indications: Teddy Sanchez is an 74 y.o. male who is having surgery for * No pre-op diagnosis entered *. 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 Staff Sand Shoveler: Yuan Leiva RN; Al Brandon RN Scrub Person: Ely Schulz; Sourav Elaine; Romina Peace Anesthesia: general ASA: III Estimated Blood Loss: <10 mL Drains: * No LDAs found * Specimen: ID Source Type Tests Collected By Collected At Frozen? Priority Lab ID 1 Tongue Tissue TISSUE EXAM Sharee Carroll MD 11/21/24 1311 No Description: Right Lateral Base Of Tongue 2 Tongue Tissue TISSUE EXAM Sharee Carroll MD 11/21/24 1312 Description: Right Glossotonsillar Sulcus 3 Tongue Tissue TISSUE EXAM Sharee Carroll MD 11/21/24 1313 No Description: Midline Base Of Tongue 4 Tongue Tissue TISSUE EXAM Sharee Carroll MD 11/21/24 1315 No Description: Right Lateral Base Of Tongue Inferior To First Specimen Findings: hypertrophic right base of tongue Complications: None; patient tolerated the procedure well. Disposition: PACU - hemodynamically stable. Condition: stable * Karyn Muñoz RN - 11/21/2024 10:34 AM EST RIDElise SANTOS IS AURA WHO IS IN WAITING ROOM. NO PHONE documented in this encounter Plan of Treatment Not on file documented as of this encounter Procedures Procedure Name Priority Date/Time Associated Diagnosis Comments TISSUE EXAM Routine 11/21/2024 1:11 PM EST Localized swelling, mass and lump, head HI LARYNGOSCOPY DIRECT OPERATIVE WITH BIOPSY 11/21/2024 12:45 PM EST Localized swelling, mass and lump, head PROCEDURAL ECG Routine 11/21/2024 10:37 AM EST ECG OUTSIDE 11/21/2024 documented in this encounter Results * Tissue exam (11/21/2024 1:11 PM [...] including occasional follicles (highlighted by their associated KX56-ncrngonh dendritic cell meshwork and CD10). The JC67-plpqrgof follicle center cells appear largely negative for [...] including occasional follicles (highlighted by their associated RO95-nwusxkzu dendritic cell meshwork and CD10). The MH72-rzvzehfj follicle center cells appear largely negative for BCL2 and there is no coexpression of CD5 by the B cells. Cyclin D1 is negative. The overall findings support interpretation as a reactive lymphoid population. The p16 immunohistochemical study shows no block-like staining in the epithelium. 5 1:43 PM [facility] Clinical Information Significant smoking history, Right base of tongue PET avid mass. 5 1:43 PM [facility] Gross Description A. Tongue, Right Lateral [...] is a 0.7 cm aggregate of irregular bojorquez-pink rubbery tissue fragments, which is wrapped in paper and submitted in toto in one cassette, multiple pieces, multiple levels on one slide. CARLOS 1:43 PM EST [facility] Disclaimer NOTE: The immunohistochemical tests and in situ hybridization tests were developed and their performance characteristics were determined by [facility]. They have not been cleared [...] fixed and paraffin embedded. 1:43 PM EST [facility] Tissue Tongue structure / Unknown 11/21/2024 [...] Sharee Carroll MD LAB PATHOLOGY ORDERA BLES [facility] ([facility]) [facility] [address] [place] [address], * ECG 12 lead - Procedural (No Charge) (11/21/2024 10:37 AM EST) Ventricular Rate ECG 63 BPM GEMUSE Atrial Rate 63 BPM GEMUSE P-R Interval 228 ms GEMUSE QRS Duration 160 ms GEMUSE Q-T Interval 476 ms GEMUSE QTc 487 ms GEMUSE R Newton -45 degrees GEMUSE T Newton 109 degrees GEMUSE ECG Interpretation Sinus rhythm with 1st degree A-V block Left bundle branch block When compared with ECG of 27-NOV-2012 13:13, Left bundle branch block is now Present Confirmed by DARINEL BARAHONA ([id number]) on 11/21/2024 9:18:02 PM [facility] 11/21/2024 10:3 7 AM EST 11/21/2024 9:18 PM EST David Olsen DO ECG ORDERABLES Performing Organization Address [facility]/ZIP Co de Phone Number GEMUSE * ECG-Outside (11/21/2024) Provider Onbase MD ECG ORDERABLES documented in this encounter Visit Diagnoses Diagnosis Localized swelling, mass and lump, head documented in this encounter Administered Medications Inactive Administered Medications - up to 3 most recent administrations Medication Order MAR Action Action Date Dose Rate Site lactated Ringer's infusion 75 mL/hr, intravenous, Continuous, Starting on 11/21/24 at 1030, Preprocedure Restarted 11/21/2024 1:34 PM EST Continued by Anesthesia 11/21/2024 12:45 PM EST 75 mL/hr New Bag 11/21/2024 10:56 AM EST 75 mL/hr 75 mL/hr sodium chloride 0.9 % flush 10 mL 10 mL, intravenous, 2 times daily, First dose on Thu11/21/24 at 1030, Preprocedure sodium chloride 0.9 % flush 10 mL 10 mL, intravenous, As needed, line care, Starting on Thu11/21/24 at 1014, Preprocedure documented in this encounter Discontinued Medications Medication Sig Discontinue Reason Start Date End Da te venlafaxine (EFFEXOR) 37.5 mg tablet Take 2 tablets (75 mg total) by mouth 1 (one) time each day. Formulary change 12/31/2011 11/11/2024 documented as of this encounter Historical Medications * This list may reflect changes made after this encounter. Medication Sig Dispensed Refills Start Date End Date venlafaxine XR (EFFEXOR-XR) 150 mg 24 hr capsule Take 1 capsule (150 mg total) by mouth at bedtime. Do not crush or chew. venlafaxine (EFFEXOR) 75 mg tablet Take 1 tablet (75 mg total) by mouth 1 (one) time each day. atorvastatin (LIPITOR) 10 mg tablet Take 1 tablet (10 mg total) by mouth at bedtime. gabapentin (NEURONTIN) 800 mg tablet Take 0.5 tablets (400 mg total) by mouth 2 (two) times a day. levothyroxine (SYNTHROID, LEVOTHROID) 100 mcg tablet Take 1 tablet (100 mcg total) by mouth 1 (one) time each day before breakfast. verapamil SR (CALAN-SR) 240 mg CR tablet Take 1 tablet (240 mg total) by mouth 1 (one) time each day. 02/04/2022 venlafaxine (EFFEXOR) 37.5 mg tablet Take 2 tablets (75 mg total) by mouth 1 (one) time each day. 12/31/2011 11/11/2024 added in this encounter Active and Recently Administered Medications Times are shown in EST. Scheduled Medication Order 2024 11/20/2024 11/21/2024 sodium chloride 0.9 % flush 10 mL(Linked Group 1) 10 mL, intravenous, 2 times daily, First dose on Thu11/21/24 at 1030, Preprocedure 1030 (Canceled Entry - Provider: Automatic Discharge Provider - Comment: Automatically canceled at discontinue of medication order) Continuous Medication Order 2024 11/20/2024 11/21/2024 lactated Ringer's infusion 75 mL/hr, intravenous, Continuous, Starting on Thu11/21/24 at 1030, Preprocedure 1056 (New Bag - Prov ider: Karyn Muñoz RN)1245 (Continued by Anesthesia - Provider: Kristi Reis CRNA)1333 (Paused - Provider: Kristi Reis CRNA - Comment: Switch to gravity)1334 (Restarted - Provider: Kristi Reis CRNA)1508 (Stopped - Provider: Aysha Stinson RN) PRN Medication Order 2024 11/20/2024 11/21/2024 oxymetazoline (AFRIN) nasal spray (CANCELED) As needed, Starting on Thu11/21/24 at 1317, Intraprocedure 1317 (Given - Provid er: Sharee Carroll MD) sodium chloride 0.9 % flush 10 mL(Linked Group 1) 10 mL, intravenous, As needed, line care, Starting on Thu11/21/24 at 1014, Preprocedure Linked Groups Order Group 1: Insert peripheral IV (CANCELED) STAT, Once, On Thu11/21/24 at 1015, For 1 occurrence, Preprocedure And Maintain IV access (CANCELED) Until discontinued, Starting on Thu11/21/24 at 1015, Until Specified, Preprocedure And Saline lock IV (CANCELED) Routine, Once, On Thu11/21/24 at 1015, For 1 occurrence, Preprocedure And sodium chloride 0.9 % flush 10 mLJump to med 10 mL, intravenous, 2 times daily, First dose on Thu11/21/24 at 1030, Preprocedure And sodium chloride 0.9 % flush 10 mLJump to med 10 mL, intravenous, As needed, line care, Starting on Thu11/21/24 at 1014, Preprocedure documented in this encounter Orders Medications Ordered That Deonte ht Not Have Been Administered Count Last Ordered Date First Ordered Date oxymetazoline (AFRIN) nasal spray 1 025 sodium chloride 0.9 % flush 10 mL 2 025 Discharge Count Last Ordered Date First Orde red Date DISCHARGE PATIENT 1 11/21/2024 documented in this encounter Care Teams Glass Checker Relationship Specialty Start Date End Date Jessica Berry MD [address] [place] [address] PCP - General Internal Medicine 08/03/12 documented as of this encounter
--- OUTSIDE RECORDS SUMMARY | 2024-11-28 09:11 | XMS_ITS | Encounter Summary ---
Author Organization [facility] Address [address] [place] [address] Care Team Providers Care Supervisor Ticket Sales Name Role Phone Jessica Berry MD Primary Care Provider [phone] Reason for Visit * Auth/Cert (Routine) Specialty Diagnoses / Procedures Referred By Contac t Referred To Contact Diagnoses Localized swelling, mass and lump, head Procedures IA LARYNGOSCOPY DIRECT OPERATIVE WITH BIOPSY DIRECT LARYNGOSCOPY W/ BIOPSY Sharee Carroll MD [address] [place] [address] [facility] Main Or [address] [place] [phone] Referral ID Status Reason Start Date Expiration Date Visits Re quested Visits Authorized [id number] 1 1 Encounter Details Date Type Department Care Team (Late st Contact Info) Description 11/21/2024 11:45 AM EST - 11/21/2024 1:[address] [facility] Main OR [address] [place] [phone] Sharee Carroll MD [address] [place] [id number] DIRECT LARYNGOSCOPY W/ BIOPSY [90590 (CPT??)] Surgery Details Date/Time Status Location OR Service Patient Class Case Cl ass Case Type Trauma Case? 11/21/2024 11:45 AM Posted [facility] OR OR [facility] Out[facility] Surgery F - Elective Panel 1 Procedure LRB Anes Op Region Wound Class Comments DIRECT LARYNGOSCOPY W/ BIOPSY N/A general Throat Class II/ Clean Contaminated Surgeon Surgeon Role Service Panel Sharee Carroll MD Primary ENT 1 documented in this encounter Social History Tobacco Use Types Packs/Day Years [...] Sign Reading Time Taken Comments Blood Pressure 146/66 11/21/2024 10:25 AM EST Pulse 61 11/21/2024 10:25 AM EST Temperature 36.5 ??C (97.7 ??F) 11/21/2024 10:[address] Respiratory Rate 16 11/21/2024 10:25 AM EST Oxygen Saturation 100% 11/21/2024 10:25 AM EST Inhaled Oxygen Concentration - - Weight [...] sent through Care Everywhere. * General Anesthesia (Malaysian) * Laryngoscopy: Direct Rigid: Post-op (Malaysian) documented in this encounter Medications at Time [...] LARYNGOSCOPY, DIRECT, WITH BIOPSY (SURG) Procedure code: 36116 2. Continuous dependence on cigarette smoking F17.210: [...] W/ BIOPSY OPERATIVE NOTE Date: 11/21/2024 Location: [facility] OR Name: Teddy Sanchez, : 1950, Diagnosis Pre-op Diagnosis * Localized swelling, mass and lump, head [R22.0] Post-op Diagnosis * Localized swelling, mass and lump, head [R22.0] Procedures DIRECT LARYNGOSCOPY W/ BIOPSY [address]35 - IA LARYNGOSCOPY DIRECT OPERATIVE WITH BIOPSY Additional Procedures Indications: Teddy Sanchez is an 74 y.o. male who is having surgery for pet avid bot hypertrophy Surgeon(s) & Dress Operator(s) * Sharee Carroll MD - Primary Anesthesia: [...] 11/21/2024 1:05 PM EST Date: 11/21/2024 Location: [facility] OR Name: Teddy Sanchez, : 1950, Diagnosis Pre-op Diagnosis * Localized swelling, mass and lump, head [R22.0] Post-op Diagnosis * Localized swelling, mass and lump, head [R22.0] Procedures DIRECT LARYNGOSCOPY W/ BIOPSY 89727 - IA LARYNGOSCOPY DIRECT OPERATIVE WITH BIOPSY Additional Procedures Indications: Teddy Sanchez is an 74 y.o. male who is having surgery for * No pre-op diagnosis entered *. Surgeon(s) & Dress Operator(s) * Sharee Carroll MD - Primary No surgical staff documented. Staff Criminal Research Specialist: Yuan Leiva RN; Al Brandon RN Scrub Person: Ely Schulz; Benjamin Harman Peace Anesthesia: general ASA: III Estimated Blood [...] Muñoz RN - 11/21/2024 10:34 AM EST VIOLET SANTOS IS AURA WHO IS IN WAITING ROOM. NO PHONE documented in this encounter Plan of Treatment Not on file documented as of this encounter Procedures Procedure Name Priority Date/Time Associated Diagnosis Comments TISSUE EXAM Routine 11/21/2024 1:11 PM EST Localized swelling, mass and lump, head IA LARYNGOSCOPY DIRECT OPERATIVE WITH BIOPSY 11/21/2024 12:45 [...] including occasional follicles (highlighted by their associated FN13-sotqkbhv dendritic cell meshwork and CD10). The SD18-ivnidnxb follicle center cells appear largely negative for [...] including occasional follicles (highlighted by their associated EK03-tqyogafo dendritic cell meshwork and CD10). The YG83-yzyigqil follicle center cells appear largely negative for BCL2 and there is no coexpression of CD5 by the B cells. Cyclin D1 is negative. The overall findings support interpretation as a reactive lymphoid population. The p16 immunohistochemical study shows no block-like staining in the epithelium. 5 1:43 PM EST [facility] Clinical Information Significant smoking history, Right base of tongue PET avid mass. 1:43 PM [facility] Gross Description A. Tongue, Right [...] levels on one slide. CARLOS 1:43 PM [facility] Disclaimer NOTE: The immunohistochemical tests and in situ hybridization tests were developed and their performance characteristics were determined by [facility]. They have not been cleared [...] formalin fixed and paraffin embedded. 1:43 PM [facility] Tissue Tongue structure [...] Sharee Carroll MD LAB PATHOLOGY [facility]) [facility] [address] [place] [address], * ECG 12 lead - Procedural (No Charge) (11/21/2024 10:37 AM EST) Ventricular Rate ECG 63 BPM GEMUSE Atrial Rate 63 BPM GEMUSE P-R Interval 228 ms GEMUSE QRS Duration 160 ms GEMUSE Q-T Interval 476 ms GEMUSE QTc 487 ms GEMUSE R [place] -45 degrees GEMUSE T [place] 109 degrees GEMUSE ECG Interpretation Sinus rhythm [...] Diagnosis Localized swelling, mass and lump, head Localized swelling, mass and lump, head documented in this encounter Administered Medications Inactive Administered Medications - up to 3 most recent administrations Medication Order MAR Action Action Date Dose Rate Site lactated Ringer's infusion 75 mL/hr, intravenous, Continuous, Starting on Thu11/21/24 at 1030, Preprocedure Restarted 11/21/2024 1:34 PM EST Continued by Anesthesia 11/21/2024 12:45 PM EST 75 mL/hr New Bag 11/21/2024 10:56 AM EST 75 mL/hr 75 mL/hr oxymetazoline (AFRIN) nasal spray As needed, Starting on Thu11/21/24 at 1317, Intraprocedure Given 11/21/2024 1:17 PM EST 1 spray sodium chloride 0.9 % flush 10 mL [...] Count Last Ordered Date First Ordered Date sodium chloride 0.9 % flush 10 mL 2 025 Discharge Count Last Ordered Date First Orde red Date DISCHARGE PATIENT 1 11/21/2024 documented in this encounter Care Teams Supervisor Ticket Sales Relationship Specialty Start Date End Date Jessica Berry MD [address] [place] [address] PCP - General Internal Medicine 08/03/12 documented as of this encounter
--- OUTSIDE RECORDS SUMMARY | 2024-11-28 09:11 | XMS_ITS | Encounter Summary ---
Author Organization [facility] Address [address] [place] [address] Care Team Providers Care Industrial Engineering Manager Name Role Phone Jessica Berry MD Primary Care Provider [phone] Reason for Visit * Auth/Cert (Routine) Specialty Diagnoses / Procedures Referred By Contac t Referred To Contact Diagnoses Localized swelling, mass and lump, head Procedures MS LARYNGOSCOPY DIRECT OPERATIVE WITH BIOPSY DIRECT LARYNGOSCOPY W/ BIOPSY Sharee Carroll MD 100 [facility] [address] [place] [address] [facility] Main Or [address] [place] [address] Referral ID Status Reason Start Date Expiration Date Visits Re quested Visits Authorized [id number] 1 1 Encounter Details Date Type Department Care Team (Late st Contact Info) Description 11/21/2024 12:45 PM EST Anesthesia Event [facility] Main OR [address] [place] [phone] David Olsen DO [address] [place] [phone] Kristi Reis CRNA [address] [place] [address] Anesthesia Record Procedure Summary Procedure Name Responsible Anesthesiologist Anesthesia Start Time Anesthesia Stop Time DIRECT LARYNGOSCOPY W/ BIOPSY (Throat) David Olsen DO 11/21/24 1245 11/21/24 1353 Events Date Time Event Comment 11/21/2024 1143 1245 In Room 1245 An Start 1249 An Start Data The patient wa s reevaluated immediately before moderate or deep sedation use and before anesthesia induction. 1253 An Induction 1259 An Intubation 1300 Anesthesia Ready 1305 Proc Start 1327 Proc Fin 1344 An Extubation 1344 an stop data 1348 Out of Room 1353 Handoff to RN I completed my handoff to the receiving nurse during which we: 1. Identified the patient 2. Identified the responsible provider 3. Reviewed the pertinent medical history 4. Discussed the surgical course 5. Reviewed intra-op anesthesia management and issues during anesthesia 6. Set expectations for post-procedure period 7. Allowed opportunity for questions and acknowledgement of understanding. 1353 An Stop Meds Name Total midazolam 1 mg/mL 2 mg fentaNYL (SUBLIMAZE) injection 100 mcg propofol (DIPRIVAN) injection 10 mg/mL 1 00 mg rocuronium 50 mg ondansetron 2 mg/mL 4 mg glycopyrrolate 0.2 mg/mL 0.1 mg phenylephrine (MEETA-SYNEPHRINE) 100 mcg/m L syringe 10 mL 100 mcg dexamethasone (DECADRON) injection 4 mg/ mL 8 mg lidocaine PF (XYLOCAINE-MPF) local injec tion 2% 100 mg sugammadex (BRIDION) injection 100 mg/mL 300 mg lactated Ringer's infusion 500 mL * Agents Name O2 N2O Air Sevoflurane Inspired Sevoflurane * Blood No blood administrations on file. Lines, Drains, and Airways Type Details Placement Removal Non-Surgical Airway Placement Date: 11/21/24; Placed by: Anesthesiologist; Removal Date: 11/21/24; Removal Time: 1418 11/21/24 0000 by Americo Rowe RN 11/21/24 1418 by Americo Rowe RN Peripheral IV Placement Date: 11/21/24; Placement Time: 1049; Catheter Size: 20 G; Orientation: Posterior, Right; Location: Hand; Site Prep: Chlorhexidine; Insertion Attempts: 1; Patient Tolerance: Tolerated well; Removal Date: 11/21/24; Removal Time: 1536 11/21/24 1049 by Karyn Muñoz RN 11/21/24 1536 by Aysha Stinson RN ETT Placement Date: 11/21/24; Placement Time: 1304 (created via procedure documentation); Mask Ventilation: 2; Technique: Video laryngoscopy; Type: ETT; Cuffed: Yes; Blade Size: 3; Location: Oral; Insertion Attempts: 1; Placement Verification: Auscultation; Removal Date: 11/21/24; Removal Time: 1344 11/21/24 1304 by Kristi Reis CRNA 11/21/24 1344 by Kristi Reis CRNA documented in this encounter Social History Tobacco [...] on file documented as of this encounter Progress Notes * Kristi Reis CRNA - 11/21/2024 1:53 PM EST Patient: Teddy Sanchez Procedure Summary Date: 11/21/24 Room / Location: [facility] OR / [facility] OR Anesthesia Start: 1245 Anesthesia Stop: 1353 Procedure: DIRECT LARYNGOSCOPY W/ BIOPSY (Throat) Diagnosis: Localized swelling, mass and lump, head Surgeons: Sharee Carroll MD Responsible Provider: David Olsen DO Anesthesia Type: general ASA Status: 3 Anesthesia Plan: general Last Vitals: Vitals Value Taken Time BP 144/67 11/21/24 1353 Temp 97.4 11/21/24 1353 Pulse 66 11/21/24 1353 Resp 14 11/21/24 1353 SpO2 96 11/21/24 1353 No data recorded Anesthesia Post Evaluation Patient location during evaluation: PACU Patient participation: waiting for patient participation (sedated) Level of consciousness: responsive to light touch Pain management: adequate Airway patency: patent Anesthetic complications: no Cardiovascular status: acceptable and hemodynamically stable Respiratory status: acceptable and face mask Hydration status: acceptable Nausea: No Vomiting: No There were no known notable events for this encounter. * Kristi Reis CRNA - 11/21/2024 1:03 PM ESTAssociated Order(s): Intubation General Information and Staff Patient location during procedure: OR Anesthesiologist: David Olsen DO Resident/COLD PRESS LOADER: Kristi Reis CRNA Performed: resident/COLD PRESS LOADER/CAA Performed by: Kristi Reis CRNA Authorized by: David Olsen DO Intubation Urgency: elective Final Airway Details Successful [...] 11/21/2024 1:04 PMStop Time: 11/21/2024 1:04 PM * David Olsen DO - 11/21/2024 10:10 AM EST Images from the original note were not included. Relevant Problems No relevant active problems Clinical information reviewed: Tobacco Allergies Meds Med Hx Surg Hx Fam Hx Soc Hx Anesthesia Plan ASA 3 Anesthesia Plan: general General Anesthesia Considerations: ETT Anesthesia Risks Discussed dental injury, allergic reaction, serious complications, nausea, pain, sore throat and corneal abrasion Plan Factors Patient is a current smoker Smoking cessation education provided. Induction method: intravenous Postoperative administration of opioids is intended. Anesthetic plan and risks discussed with patient. Use of blood products discussed with patient who consented to blood products. Anesthesia Plan discussed with attending. Anesthesia Evaluation Patient summary reviewed and Nursing notes reviewed No history of anesthetic complications Airway Mallampati: III Thyromental distance: > 3 finger breadths Neck ROM: limited Dental Pulmonary - normal exam breath sounds clear to auscultation (-) asthma, shortness of breath, sleep apnea ROS comment: Current smoker - 0.5 packs per day Cardiovascular - normal exam Exercise tolerance: good (+) hypertension, dysrhythmias (LBBB), CHF (diastolic) (-) past [place], CAD, angina, SABA ECG reviewed Rhythm: regular Rate: normal ROS comment: Verapamil for palpitations HLD HOCM - denies CP, SOB, syncope S/p Myomectomy (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 LV wall thickness again appears increased though better visualized this time around. At this point I would recommend a cMRI next year for more accurate measurements of the septum TTE 07/2023: EF 60-65 percent. Mild concentric remodeling. Septal thickening 1.9 cm without LVOT obstruction. Grade II diastolic dysfunction. No hemodynamically significant valve disease. Stable ascending aortic aneurysm Neuro/Psych (-) seizures, TIA, CVA Comments: Peripheral neuropathy b/l feet GI/Hepatic/Renal (-) GERD, liver disease, renal disease Comments: Dysphagia Endo/Other (+) hypothyroidism (-) diabetes mellitus Comments: Anxiety/Depression Patient had a PET CT as they were found to have a lung lesion and a significant smoking history. PET CT showed uptake at the base of the tongue on the right. To operating room for biopsy. Marijuana a few times per week Abdominal (+) obese PONV RISK SCORE: 0 There were no vitals filed for this visit. SpO2 Readings from Last 1 Encounters: No data found for SpO2 No results found for: WBC , RBC , HGB , HCT , PLT , MCV No Known Allergies STOP BANG: No data recorded NPO Status: No data recorded documented in this encounter Plan of Treatment Not on file documented as of this encounter Procedures Procedure Name Priority Date/Time Associated Diagnosis Comments TH AN ENDOTRACHEAL(NO CHARGE) Routine 11/21/2024 1:03 PM EST documented in this encounter Results * TH AN ENDOTRACHEAL(NO CHARGE) (11/21/2024 1:03 PM EST) Kristi Perez CRNA - 11/21/2024 1:03 PM EST Kristi Reis CRNA ? 11/21/2024 ??1:05 PM General Information and Staff Patient location during procedure: OR Anesthesiologist: David Olsen DO Resident/COLD PRESS LOADER: Kristi Reis CRNA Performed: resident/COLD PRESS LOADER/CAA Performed by: Kristi Reis CRNA Authorized by: [...] PM David Olsen DO ANESTHESIA ORDERABLE S documented in this encounter Visit Diagnoses Not on filedocumented in this encounter Administered Medications Inactive Administered Medications - up to 3 most recent administrations Medication Order MAR Action Action Date Dose Rate Site dexAMETHasone (DECADRON) injection intravenous, As needed, Starting on Thu11/21/24 at 1303, Anesthesia Intraprocedure Given 11/21/2024 1:03 PM EST 8 mg fentaNYL (PF) (SUBLIMAZE) injection intravenous, As needed, Starting on Thu11/21/24 at 1253, Anesthesia Intraprocedure Given 11/21/2024 12:53 PM EST 100 mcg glycopyrrolate (ROBINUL) injection intravenous, As needed, Starting on Thu11/21/24 at 1246, Anesthesia Intraprocedure Given 11/21/2024 12:46 PM EST 0.1 mg lactated Ringer's infusion 75 mL/hr, intravenous, Continuous, Starting on Thu11/21/24 at 1030, Preprocedure Restarted 11/21/2024 1:34 PM EST Continued by Anesthesia 11/21/2024 12:45 PM EST 75 mL/hr New Bag 11/21/2024 10:56 AM EST 75 mL/hr 75 mL/hr lidocaine (PF) (XYLOCAINE-MPF) 2 % injection injection, As needed, Starting on Thu11/21/24 at 1253, Anesthesia Intraprocedure Given 11/21/2024 12:[address] 100 mg midazolam (VERSED) injection intravenous, As needed, Starting on Thu11/21/24 at 1246, Anesthesia Intraprocedure Given 11/21/2024 12:46 PM EST 2 mg ondansetron (PF) (ZOFRAN) injection intravenous, As needed, Starting on Thu11/21/24 at 1321, Anesthesia Intraprocedure Given 11/21/2024 1:21 PM EST 4 mg phenylephrine (MEETA-SYNEPHRINE) injection intravenous, As needed, Starting on Thu11/21/24 at 1253, Anesthesia Intraprocedure Given 11/21/2024 12:53 PM EST 100 mcg propofoL (DIPRIVAN) injection intravenous, As needed, Starting on Thu11/21/24 at 1253, Anesthesia Intraprocedure Given 11/21/2024 12:[address] 100 mg rocuronium (ZEMURON) injection intravenous, As needed, Starting on Thu11/21/24 at 1253, Anesthesia Intraprocedure Given 11/21/2024 12:53 PM EST 50 mg sugammadex (BRIDION) 100 mg/mL injection intravenous, As needed, Starting on Thu11/21/24 at 1328, Anesthesia Intraprocedure Given 11/21/2024 1:28 PM EST 3 00 mg documented in this encounter Orders Medications Ordered That Deonte ht Not Have Been Administered Count Last Ordered Date First Ordered Date lidocaine (PF) (XYLOCAINE-MP F) 2 % injection 1 11/21/2024 documented in this encounter Care Teams Industrial Engineering Manager Relationship Specialty Start Date End Date Jessica Berry MD [address] [facility] [address] PCP - General Internal Medicine 08/03/12 documented as of this encounter
[2024-11-28 09:54] VITALS: BP 149/66; PULSE 69; RESP 18; TEMP 36.6; O2SAT 97; BMI 29.2
[2024-11-28 09:55] LABS: MANUAL DIFF FLAG NO
[2024-11-28 09:57] LABS: Basophils Absolute Auto 0.1 X10*3/uL (0.0-0.2); Basophils Percent Auto 0.8 % (0-2); Eosinophils Absolute Auto 0.5 X10*3/uL (0.0-0.4); Eosinophils Percent Auto 5.2 % (0-4); Hematocrit 45.2 % (42.0-52.0); Hemoglobin 15.5 g/dl (14.0-18.0); Imm Gran Abs Auto 0.06 X10*3/uL (0.00-0.03); Imm Gran Pct Auto 0.6 % (0.0-0.4); Lymphocytes Absolute Auto 2.7 X10*3/uL (1.2-4.9); Lymphocytes Percent Auto 26.3 % (20-40); Mean Corpuscular HGB Conc 34.3 g/dl (31.0-36.0); Mean Corpuscular Hemoglobin 32.5 pg (27.0-33.0); Mean Corpuscular Volume 94.8 fL (80.0-98.0); Monocytes Absolute Auto 0.9 X10*3/uL (0.1-1.2); Monocytes Percent Auto 8.6 % (2-11); Neutrophils Percent Auto 58.5 % (45-73); Platelet Count 334 X10*3/uL (160-400); Red Blood Count 4.77 X10*6/uL (4.60-5.80); Red Cell Distribution Width 13.2 % (11.0-16.0); White Blood Count 10.3 X10*3/uL (4.8-10.8)
[2024-11-28 10:02] LABS: INTERNATIONAL NORM RATIO 0.9 (0.9-1.1); Prothrombin Time 10.8 SEC (10.9-12.4)
[2024-11-28 10:05] LABS: Partial Thromboplastin Time 33.8 SEC (26.0-36.8)
--- NOTE | 2024-11-28 10:23 | MHC.SHP ---
Pre-Procedural Eval Section A - 24 Hr Update-Section A only Date of Service: 11/28/24 Section B - Complete if H&P > 30 days Chief Complaint: MASS MIDDLE LOBE RIGHT LUNG Details of Present Illness: 74 y/o man with a pleural nodule. Thoracic surgery requests a biopsy. Relevant Family History (Specify if Yes): No Relevant Social History: Tobacco Use Present Medications: see Short Stay Collaborative assessment Medical History: Significant History History of Previous Operations: Relevant previous surgery/procedure and date(s) Allergies: Allergies Allergy/AdvReac Type Severity Reaction Status Date / Time amoxicillin AdvReac Mild diarrhea Verified 11/28/24 10:00 Review of Systems Sugical H&P ROS: Negative: Constitution, Cardiovascular and Respiratory Exam Surgical H&P Exam: Normal: Heart, Normal: Lungs, Normal: Skin and Normal: Neurological Plan 74 y/o man with RML/pleural nodule that is not PET avid. -Discussed observation vs biopsy. Risks reviewed. Patient wishes to proceed with right lung biopsy. Time Spent With Patient Time: Total time managing care of this patient today ____ minutes.
[2024-11-28 11:04] VITALS: BP 151/69; PULSE 66; RESP 16; O2SAT 96
== END ==
LOC: HO.SSS 08:51
PROVIDERS: Physician Assistant Surgical; Radiology Vascular & Interventional Radiology; PCP Internal Medicine; Visit Provider Surgery
DX: R91.8 Other nonspecific abnormal finding of lung field (principal); Z53.9 Procedure and treatment not carried out, unspecified reason; R93.3 Abnormal findings on diagnostic imaging of other parts of digestive tract; R79.1 Abnormal coagulation profile; J39.2 Other diseases of pharynx; I42.1 Obstructive hypertrophic cardiomyopathy; I10 Essential (primary) hypertension; Z88.1 Allergy status to other antibiotic agents; F17.210 Nicotine dependence, cigarettes, uncomplicated
CPT/HCPCS: 36415; 85025; 85610; 85730; J2003; J2250; J2310; J3010

== ENCOUNTER → 2024-11-28 11:08 | Outpatient (BNV) | payer MEDICARE, MEDICAID, SELFPAY | PROVIDERS: PCP Internal Medicine; Visit Provider Radiology Diagnostic Radiology | DX: R91.8 Other nonspecific abnormal finding of lung field (principal) | CPT/HCPCS: 71250 ==

== ENCOUNTER 2025-01-12 09:12 | Outpatient (REF) | payer MEDICARE, MEDICAID, SELFPAY ==
--- OUTSIDE RECORDS SUMMARY | 2025-01-12 09:53 | XMS_ITS | Clinical Summary ---
Author Organization [employer] Address [address] [facility] [address] [place] [address] Care Team Providers Care Air Pollution Auditor Name Role Phone Unavailable Primary Care Provider [...]
--- OUTSIDE RECORDS SUMMARY | 2025-01-12 09:53 | XMS_ITS | Clinical Summary ---
Author Organization [facility] Address [address] [place] [address] Phone Care Team Providers Care Rehab Nurse Name Role Phone Jessica Berry MD Primary Care Provider Allergies No known active allergies Medications verapamil SR (CALAN-SR) 240 mg CR tablet [...] bedtime. Do not crush or chew. Active Encounters Date Type Department Care Team Description 11/21/2024 12:45 PM EST Anesthesia Event [facility] OR [address] [place] [phone] David Olsen DO Hard, Shannon, CRNA 11/21/2024 11:45 AM EST - 11/21/2024 1:15 PM EST Surgery [facility] OR [address] [place] [address] Sharee Carroll MD DIRECT LARYNGOSCOPY W/ BIOPSY [[id number] (CPT??)] 11/21/2024 10:06 AM EST - 11/21/2024 3:51 PM EST Hospital Encounter [facility] Main OR [address] [place] [phone] Sharee Carroll MD Localized swelling, mass and [...] Assigned at Male 11/18/2024 11:10 AM EST Legal Sex Male 12:14 AM EST Gender Identity Male 11/18/2024 11:10 AM EST Sexual Orientation Straight 11/18/2024 11 :10 AM EST Obstetrics History Last Filed Vital Signs Vital [...] Health Maintenance Due Date Last Done Comments DTaP,Tdap,and Td Vaccines (1 - Tdap) 1970 Hepatitis A Vaccines (1 of 2 - Risk 2-dose series) 1970 Pneumococcal Vaccine: 50+ Ye ars (1 of 2 - PCV) 1970 Zoster Vaccines (1 of 2) 2001 [...] patient's age to complete this topic Meningococcal B Vacine Aged Out No lo nger eligible based on patient's age to complete this topic RSV Immunization Patients Un shaheed 20 months Aged Out No longer eligible b ased on patient's age to complete this topic Varicella Vaccines Aged Out No longer eligible based on patient's age to complete this topic Medical Devices Implanted Type Area Heavy Repairer Device Identifier Shelf Expiration Date Model / Serial / Lot Prolaryn Plus Voice Injection 1cc - Sn/A - [id number] Implanted:Qty: 1 on 11/21/2024 by Sharee Carroll MD at [facility] [employer] N/A: Throat [employer] [id number] / N/A / N/A Procedures Procedure Name Priority Date/Time Associated Diagnosis Comments TISSUE EXAM Routine 11/21/2024 1:11 PM EST Localized swelling, mass and lump, head TH AN ENDOTRACHEAL(NO CHARGE) Routine 11/21/2024 1:03 PM EST NM LARYNGOSCOPY DIRECT OPERATIVE WITH BIOPSY 11/21/2024 12:45 [...] including occasional follicles (highlighted by their associated WL02-ujbyohsy dendritic cell meshwork and CD10). The QX34-rwdpmzfv follicle center cells appear largely negative for [...] including occasional follicles (highlighted by their associated UA14-aygtdopn dendritic cell meshwork and CD10). The BJ13-tsbqaxin follicle center cells appear largely negative for BCL2 and there is no coexpression of CD5 by the B cells. Cyclin D1 is negative. The overall findings support interpretation as a reactive lymphoid population. The p16 immunohistochemical study shows no block-like staining in the epithelium. 1:[address] [facility] Clinical Information Significant smoking history, Right base of tongue PET avid mass. 1:[address] [facility] Gross Description A. Tongue, Right [...] on one slide. CARLOS 1:43 PM EST [facility] Disclaimer NOTE: The immunohistochemical tests and in situ hybridization tests were developed and their performance characteristics were determined by [facility]. They have not [...] fixed and paraffin embedded. 1:43 PM EST [facility] Tissue Tongue structure / Unknown [...] Right base of tongue PET avid mass. us Sharee Carroll MD LAB PATHOLOGY ORDERABLES Fin al Result [facility] [address] [place] [address], * TH AN ENDOTRACHEAL(NO CHARGE) (11/21/2024 1:03 PM EST) Kristi Perez CRNA - 11/21/2024 1:03 PM EST Kristi Reis CRNA ? 11/21/2024 ??1:05 PM General Information and Staff Patient location during procedure: OR Anesthesiologist: David Olsen DO Resident/NEWSPAPER STUFFER: Kristi Resi CRNA Performed: resident/NEWSPAPER STUFFER/CAA Performed by: Kristi Reis CRNA Authorized by: [...] 11/21/2024 1:04 PM David Olsen DO ANESTHESIA ORDERABLES Final Res ult * ECG 12 lead - Procedural (No Charge) (11/21/2024 10:37 AM EST) Ventricular Rate ECG 63 BPM GEMUSE Atrial Rate 63 BPM GEMUSE P-R Interval 228 ms GEMUSE QRS Duration 160 ms GEMUSE Q-T Interval 476 ms GEMUSE QTc 487 ms GEMUSE R [place] -45 degrees GEMUSE T [place] 109 degrees GEMUSE ECG Interpretation Sinus rhythm with 1st degree A-V block Left bundle branch block When compared with ECG of 27-NOV-2012 13:13, Left bundle branch block is now Present Confirmed by DARINEL BARAHONA ([id number]) on 11/21/2024 9:18:02 PM GEMUSE 11/21/2024 10:3 7 AM EST 11/21/2024 9:18 PM EST David Olsen DO ECG ORDERABLES Final Result GEMUSE * ECG-Outside (11/21/2024) Provider Onbase MD ECG ORDERABLES Final Result from Last 3 Months Insurance BL[place] CROSS - [place] Advance Directives Documents on File Type Date Recorded Patient Scouring Machine Tender Expl anation Health Care Decision (hx) 11/25/2012 AD ZHANG DIRECTIVE Health Care Decision (hx) 11/25/2012 AD ZHANG DIRECTIVE Health Care Decision (hx) 11/25/2012 AD ZHANG DIRECTIVE Health Care Decision (hx) 11/25/2012 AD ZHANG DIRECTIVE Health Care Decision (hx) 11/25/2012 AD ZHANG DIRECTIVE Care Teams Rehab Nurse Relationship Specialty Start Date End Date Jessica Berry MD [address] [facility] [place] [address] PCP - General Internal Medicine 08/03/12
--- OUTSIDE RECORDS SUMMARY | 2025-01-12 09:53 | XMS_ITS | Encounter Summary ---
Author Organization [employer] Address [address] [facility] [address] [place] [address] Care Team Providers Care Grand Scribe Name Role Phone Unavailable Primary Care Provider Unavailabl e Encounter Details Date Type Department Care Team (Latest Contact Info) Description 01/25/2019 Abstract [facility] CONVERSIONS Dental, Provider, DDS Social History Tobacco [...]
--- OUTSIDE RECORDS SUMMARY | 2025-01-12 09:53 | XMS_ITS | Data Portability ---
Author Organization [place] [facility] Allergy Address [address] [place] [phone] Care Team Providers Care Rug Scratcher Name Role Phone LUTHER MAXWELL Referring Provider [...] patient and he would like to proceed. [email or web address] Not available 11/08/2024 15:12:43 Plan of Treatment Reminders Order Date Submit Date Provider Last Modified By Organization Details Last Modified Time Details Appointments FOLLOW UP 15 2024 09:00A Juve SUGGS MD Not available Not available Not available Lab None recorded . Referral None recorded . Procedures None recorded . Surgeries laryngos copy, direct, with biopsy (SURG) 2024 025 [email or web address] Not available 01/11/2025 10:25:01 Imaging None recorded . Medication Orders None recorded . Patient TargetsNo targets recorded. Patient InstructionsNo instructions recorded. Reason for Referral None Reported. Results Created Date Observation Date Name Description Value Unit Range Abnormal Flag Note LastModifiedBy Organization Detail LastModifiedTime 11/21/1911/21/2024 TISSU E EXAM .note See Note Origi nal Order ing Provi shaheed: MICHAELLE Aldo ROSS LEÓN [facility] - [address] [place] [address] Not Available [address], [place], [address], 11/24/2024 13:47:02 11/21/1911/21/2024 TISSU E EXAM final diagnosis A. Base of tongue , right latera l, biopsy : - Squam ous mucos a with a promi nent assoc iated lymph oid infil trate inclu ding occas ional react gabriela folli cles, mary tible with lingu al tonsi l. - Immun ohist ochem ical studi es were perfo rmed and the resul ts are as follo ws: p16: Negat gabriela (no block -like immun oreac tivit y ident ified ). CD3: Subse t of small lymph ocyte s immun oreac tive. CD5: Subse t of small lymph ocyte s immun oreac tive (loly lar to CD3). CD10: Few aggre reyes of lymph ocyte s immun oreac tive. CD20: Major ity of lymph ocyte s immun oreac tive (high backg round ). CD21: Highl ights folli cular dendr itic cell meshw orks (rodolfo elate s with CD10 distr ibuti on). BCL2: Aggre reyes of lymph ocyte s are negat gabriela (rodolfo elate s with CD10 and CD21 distr ibuti on). Cycli n D1: Rare singl e cells immun oreac tive (most ly endot nirmal l cells and epith elial cells ). PAX5: Many lymph ocyte s immun oreac tive (gene rally nodul ar distr ibuti on). Inter preta tion: The immun ohist ochem ical studi es show abund ant B cells (high light ed by CD20 and PAX5) inclu ding occas ional folli cles (high light ed by their assoc iated CD21- posit gabriela dendr itic cell meshw ork and CD10) . The CD10- posit gabriela folli troy cente r cells appea r large ly negat gabriela for BCL2 and there is no coexp ressi on of CD5 by the B cells . Cycli n D1 is negat gabriela. The overa ll findi ngs suppo rt inter preta tion as a react gabriela lymph oid popul ation . The p16 immun ohist ochem ical study shows no block -like stain ing in the epith elium . B. Tongu e, right gloss otons illar sulcu s, biops y: - Edema tous squam ous mucos a with focal ly dense lymph oid infil trate and detac hed fragm ents of tonsi llar type epith elium also prese nt. - C. Base of tongu e, midli ne, biops y: - Squam ous mucos a with chron ic infla mmati on. D. Base of tongu e, right later al, biops y: - Squam ous mucos a with a promi nent assoc iated lymph oid infil trate inclu ding occas ional react gabriela folli cles, mary tible with so-ca lled lingu al tonsi l. - [facility] perfo r[facility] and the resul ts are as follo ws: p16: Negat gabriela (no block -like immun oreac tivit y ident ified ). CD3: Subse t of small lymph ocyte s immun oreac tive. CD5: Subse t of small lymph ocyte s immun oreac tive (loly lar to CD3). CD10: Few aggre reyes of lymph ocyte s immun oreac tive. CD20: Major ity of lymph ocyte s immun oreac tive (high backg round ). CD21: Highl ights folli cular dendr itic cell meshw orks (rodolfo elate s with CD10 distr ibuti on). BCL2: Aggre reyes of lymph ocyte s are negat gabriela (rodolfo elate s with CD10 and CD21 distr ibuti on). Cycli n D1: Rare singl e cells immun oreac tive (most ly endot nirmal l cells and epith elial cells ). PAX5: Many lymph ocyte s immun oreac tive (gene rally nodul ar distr ibuti on). Inter preta tion: The immun ohist ochem ical studi es show abund ant B cells (high light ed by CD20 and PAX5) inclu ding occas ional folli cles (high light ed by their assoc iated CD21- posit gabriela dendr itic cell meshw ork and CD10) . The CD10- posit gabriela folli troy cente r cells appea r large ly negat gabriela for BCL2 and there is no coexp ressi on of CD5 by the B cells . Cycli n D1 is negat gabriela. The overa ll findi ngs suppo rt inter preta tion as a react gabriela lymph oid popul ation . The p16 immun ohist ochem ical study shows no block -like stain ing in the epith elium . Elect tony flannery blaze d by Leo Sam MD on 2024 at 1:43 PM Not Available [address], [address], 11/24/2024 13:47:02 11/21/19 25 11/21/2024 TISSU E EXAM clinical information Signif icant smokin g histor y, Right base of tongue PET avid mass. Not Available [address], [address], 11/24/2024 13:47:02 11/21/19 25 11/21/2024 TISSU E EXAM gross description A. Tongue , Right Latera l Base Of Tongue : Label ed righ t lat tongu e . Recei stefano in forma terence with a Telfa pad are two irreg ular disru pted friab le bojorquez-p ink rubbe ry tissu e fragm ents, each measu ring appro ximat nithya 0.5 cm in great est dimen antonia, which are wrapp ed in paper and submi tted in toto in one casse tte, two piece s, multi ple level s on one slide . B. Tongu e, Right Gloss otons illar Sulcu s: Label ed righ t jeimy tongu e . Recei stefano in forma terence with a Telfa pad is a 0.6 cm aggre gate of irreg ular bojorquez-p ink rubbe ry tissu e fragm ents which is wrapp ed in paper and submi tted in toto in one casse tte, multi ple piece s, multi ple level s on one slide . C. Tongu e, Midli ne Base Of Tongu e: Label ed midl ine b, tongu e . Recei stefano in forma terence with a Telfa pad are two irreg ular bojorquez-p ink rubbe ry tissu e fragm ents, each measu ring appro ximat nithya 0.3 cm in great [facility] antonia, which are wrapp ed in paper and submi tted in toto in one casse tte, two piece s, multi ple level s on one slide . D. Tongu e, Right Later al Base Of Tongu e Infer ior To First Speci men: Label ed righ t lat tongu e . Recei stefano in forma terence with Telfa pads is a 0.7 cm aggre gate of irreg ular bojorquez-p ink rubbe ry tissu e fragm ents, which is wrapp ed in paper and submi tted in toto in one casse tte, multi ple piece s, multi ple level s on one slide . CARLOS Not Available [address], [address], 11/24/2024 13:47:02 11/21/19 25 11/21/2024 TISSU E EXAM disclaimer NOTE: The immun ohist ochem ical tests and in situ hybri dizat ion tests were devel oped and their perfo rmanc e irais cteri stics were deter mined by [facility] . They have not been clear ed or appro stefano by the U.S. Food and Drug Admin istra tion. The FDA has deter mined that such clear ance or appro ajay is not neces staci. These tests are used for clini lorraine purpo ses. They shoul d not be regar ded as inves tigat ional or for resea [facility]. This labor atory is certi fied under the Clini lorraine Labor atory Impro vemen t Amend ments of 1987 (CLIA ) as quali fied to perfo rm high compl exity clini lorraine labor atory testi ng. (cont rols appro priat e) Unles s other oneill speci fied, all tissu e is 10% NB forma terence fixed and paraf fin embed ded. Not Available [address], [address], 11/24/2024 13:47:02 11/21/19 25 11/21/2024 H&P No observ ation record ed. [address], [address], 11/23/2024 09:02:03 11/21/19 25 11/21/2024 brief op note No observ ation record ed. [address], [address], 11/23/2024 09:02:03 11/21/19 25 11/21/2024 op note No observ ation record ed. [address], [address], 11/23/2024 09:02:03 12/19/19 25 11/21/2024 clini lorraine photo * No observ ation record ed. [email or web address] Not Available 11/27 10:20:25 Result Notes None recorded. Problems Name Problem SNOMED Code Status Onset Date Resolution Date Notes Provider Name and Address Organization Details Recorded Time Mass of head and/or neck 198571704 Active 2024 PRIYANKA DONNELLY MD [address] [place], [place] [address], [address], [facility] 13:34:45 Mass of tongue 243581052 Active 2024 PRIYANKA DONNELLY MD [address] [address], [place], [address], [place] - [facility] 13:34:55 Continuous dependence on cigarette smoking 6755597559316 08 Active 2024 PRIYANKA DONNELLY MD [address] [address], [place], [address], [place] - [facility] 15:12:50 Lung mass 505999521 Active 2024 PRIYANKA DONNELLY MD [address] [address], [place], [address], [place] - [facility] 15:12:53 Problem Notes None recorded. Procedures Surgical History Date Name Laterality Status Provider Name and Address Organization Details Recorded Time 11/21/19 25 direct laryngoscopy with biopsy completed HUGO SUGGS MD [address] [address], [place], [address], [facility] - [facility] 11/21/2024 15:22:09 11/08/19 25 Fiberoptic Laryngoscopy (Comprehensive) completed PRIYANKA DONNELLY MD [address] [address], [place], [address], [facility] - [facility] 11/08/2024 15:10:10 Imaging Results Imaging Date Name Status LastModified by Organiz ation Details LastModified Time 11/21/2024 H&P completed [address], [address], 11/23/2024 09:02:03 11/21/2024 brief op note completed [address], [address], 11/23/2024 09:02:03 11/21/2024 op note completed [address], [address], 11/23/2024 09:02:03 11/21/2024 clinical photo* completed [email or web address] Information not available 12/19/2024 10:20:25 Procedure Notes None recorded. Medical Equipment None [...] Details Last Updated DateTime 11/08/2024 172.72 cm 569[address].74 g Elvira Saldivar [place] [facility] 11/08/2024 12:59:57 Social History None recorded. Functional Status None recorded. Mental Status None recorded. Family History Nothing Reported. Medical History Condition Response Allergies/Hayfever N Heart Problems Y Anxiety Y Tonsil Infections N Emphysema N Migraines N Thyroid Problems Y Glaucoma N Developmental Delay N Depression Y COPD N Nasal or Sinus Problems N Anemia N Immune System Disorder N Anesthesia Complications N Heart Attack ([place]) N Other Skin Condition N Diabetes N Rhinitis N Bleeding Disorder N Food Allergy N Hearing Loss N Arthritis N Hyperlipidemia N Cancer N Stroke N Dementia N Nasal polyps N Asthma N Sleep Disorder N High Cholesterol N GERD/Reflux N Liver Disease N Headaches N Fibromyalgia N Hypertension N Speech Delay N Kidney Disease N Past Encounters Encounter ID Performer Location Encounter Start Date Encounter Closed Date Diagnosis/Indication Diagnosis SNOMED-CT Code Diagnosis ICD10 Code Diagnosis Note [id number] PRIYANKA DONNELLY MD [facility] [address] [address] 11/08/2024 12:34:11 11/08/2024 15:57:41 Mass of tongue 807453810 R22.0 Continuous dependence on cigarette smoking 7005430566 [address] F17.210 Lung mass 425880980 R91. 8 Health Concerns Section Related Observation LastModified by Organization Detai ls LastModified Time None Recorded Concern Status LastModified by Organization Details LastModified Time None Recorded Advance Directives Directive None Recorded Payers Encounter Date Sequence Insurance Name Policy Number Policy Bruner Covered Member ID Bruner Member ID Guarantor Name 11/08/2024 1 [facility]: MEDICARE PPO BLUE (MEDICARE REPLACEMENT PPO) [id number] [facility] [id number] Notes Date Note Type Note Provider Name [...] extending to the midline. PRIYANKA DONNELLY MD [address] [place] [address], [place], [address], [place] - [facility] 11/08/2024 15:13:12
[2025-01-12 13:51] LABS: Alanine Aminotransferase 22 U/L (0-40); Anion Gap 11 (12-20); Blood Urea Nitrogen 9 mg/dL (9-16); Calcium 9.4 mg/dL (8.4-10.2); Carbon Dioxide 25 mmol/L (22-29); Chloride 109 mmol/L (96-108); Cholesterol 173 mg/dL (<200); Estimated Glomerular Filt Rate > 60; Glucose Fasting 90 mg/dL (60-99); HDL Cholesterol 46 mg/dL (>40); LDL Cholesterol Calculated 104 mg/dL (<100); Potassium 4.3 mmol/L (3.3-5.1); Sodium 141 mmol/L (135-145); Triglycerides 119 mg/dL (<150)
[2025-01-12 13:59] LABS: PSA,Total (Free>4and<10) 4.75 ng/mL (0.00-4.00)
[2025-01-12 14:13] LABS: Free T4 (Free Thyroxine) 1.12 ng/dL (0.71-1.85); Thyroid Stimulating Hormone 1.22 uIU/mL (0.32-4.0); Vitamin D 25-OH Total 60.9 ng/mL (>30)
[2025-01-13 13:47] LABS: Free Prostate Spec Ag 0.7 ng/mL; Percent Free Prostate Spec Ag 16 % (calc) (>25); Prostate Specific Ag Total 4.4 ng/mL (< OR = 4.0)
== END 2025-01-12 09:13 | disposition home or self-care (01) ==
LOC: HO.HMGCLDS 09:12
PROVIDERS: PCP Internal Medicine; Visit Provider Internal Medicine
DX: Z12.5 Encounter for screening for malignant neoplasm of prostate (principal); I42.1 Obstructive hypertrophic cardiomyopathy; E03.9 Hypothyroidism, unspecified; I10 Essential (primary) hypertension; F33.42 Major depressive disorder, recurrent, in full remission; E78.5 Hyperlipidemia, unspecified
CPT/HCPCS: 36415; 80048; 80061; 82306; 84153; 84154; 84439; 84443; 84460

== ENCOUNTER 2025-01-16 08:03 | Outpatient (AMB) | payer MEDICARE, MEDICAID, SELFPAY ==
--- NOTE | 2025-01-16 08:11 | A.OFFPC_ITS ---
Vital Signs 01/16/25 08:13 Height 5 ft 8 in Weight 199 lb BMI 30.3 BP 130/60 Blood Pressure Location Rt brachial Position Sitting Respiration 16 Pulse 61 Pulse Source Pulse Oximeter Temp 97.7 F Temp Source Oral Pulse Oximetry (%) 98 Oxygen Delivery Method Room Air Intake Visit Reasons: 6 months f/u Intake Note: Pt is here today for his 6mo. f/u Allergies amoxicillin Adverse Reaction (Mild, Verified 01/19/25 01:29) diarrhea Medication List - Last Reconciled 01/19/25 by Jessica Berry MD atorvastatin 10 mg PO DAILY gabapentin 400 mg (1/2 x 800 mg) PO BID 90 days levothyroxine 100 mcg PO DAILY lidocaine 4% 1 appl topical BID venlafaxine ER 75 mg PO DAILY 90 days venlafaxine ER 150 mg PO DAILY verapamil ER 240 mg PO DAILY Tobacco use date assessed: 01/16/25 Fall risk assessment: No Falls in past year Last assessed Fall Risk: 01/16/25 Dental Screening Dental Screen Date: 01/16/25 Did you have a dental visit in the last 12 months?: Yes Did you have a dental problem in the last 6 months where you did not have access to dental care?: No Was dental information given to patient?: Patient has dentist HPI 6 months f/u HPI Details 74 year-old male with history of HOCM st atus post surgery, hypertension, acquired hypothyroidism,, dyslipidemia, and depression here for a follow up. He has been feeling well, denies any chest pain, no shortness of breath or palpitations, no headache or lightheadedness. Compliant with his medications but admits to not getting much exercise this past winter months. [facility] Medical History (Updated 01/16/25 @ 08:50 by Jessica Berry MD) Elevated prostate specific antigen [PSA] History of adenomatous polyp of colon History of ankle fracture History of fibula fracture Closed right fibular fracture Erectile dysfunction Depression Essential hypertension Dyslipidemia Acquired hypothyroidism Hypertrophic obstructive cardiomyopathy Surgical History (Updated 01/16/25 @ 08:50 by Jessica Berry MD) Hx of colonoscopy History of surgery History of tonsillectomy Family History Mother CAD (coronary artery disease) CVD (cardiovascular disease) Sister No problems noted. Son Mental health disorder Daughter No problems noted. Social History Housing: Apartment Alcohol intake: current Patient Tobacco Use Status: Current everyday Tobacco user Tobacco use type: Cigarette Cigarette Packs Per Day: 0 Cigarettes Per Day: 10 e-Cigarette/Vaping Use: Never Used Substance Use Type: Marijuana Current occupational status: retired Cognitive needs: No Hearing needs: No Vision needs: Yes Questionnaire PHQ-9 Over the last 2 weeks, how often have you been bothered by any of the following problems? 1. Little interest or pleasure in doing things: not at all 2. Feeling down, depressed, or hopeless: not at all 3. Trouble falling or staying asleep, or sleeping too much: not at all 4. Feeling tired or having little energy: not at all 5. Poor appetite or overeating: not at all 6. Feeling bad about yourself - or that you are a failure or have let yourself or your family down: not at all 7. Trouble concentrating on things, such as reading the newspaper or watching television: not at all 8. Moving or speaking so slowly that other people could have noticed. Or the opposite - being so fidgety or restless that you have been moving around a lot more than usual: not at all 9. Thoughts that you would be better off or of hurting yourself in some w ay: not at all Total score: 0 Depression Screening Interpretation: Negative Depression Screening Done: Yes 87771 - PHQ-9 Billing: Yes Source: Developed by Drs. Lan Jimenez, Merry Doll, Abdi Serna and colleagues, with an educational andrei from [employer] Thrive Questionnaire Date Thrive assessed: 01/16/25 I am a: Patient What is your living situation today?: I have a steady place to live Within the past 12 months, did the food you bought not last and you didn't have the money to get more?: I choose not to answer this question Within the past 12 months, did you worry whether your food would run out before you got money to buy more?: I choose not to answer this question Do you have trouble paying for medicines?: I choose not to answer this question Do you have trouble getting transportation to medical appointments?: I choose not to answer this question Do you have trouble paying your heating and electricity bill?: I choose not to answer this question Do you have trouble taking care of your child, family member or friend?: I choose not to answer this question Do you have trouble with day-to-day activities such as bathing, preparing meals, shopping, managing finances, etc.?: I choose not to answer this question Are you currently unemployed and looking for a job?: I choose not to answer this question Are you interested in more education?: I choose not to answer this question Please select the resources that you would like help with: None Currently or been in a relationship where the following occur: I choose not to answer THRIVE Score: 0 AUDIT C Alcohol Use Questionnaire (AUDIT-C) 1. How often do you have a drink containing alcohol?: Never Total Score: 0 GWENDOLYN-7 AMB Questionnaire GWENDOLYN-7 Date GWENDOLYN - 7 assessed: 01/16/25 Feeling nervous, anxious, or on edge: 0 = Not at all Not being able to stop or control worryin = Not at all Worrying too much about different things: 0 = Not at all Trouble relaxin = Not at all Being so restless that it is hard to sit still: 0 = Not at all Becoming easily annoyed or irritable: 0 = Not at all Feeling afraid as if something awful might happen: 0 = Not at all Total GWENDOLYN-7 score (0-4 normal; 5-9 mild; 10-14 moderate; 15-21 severe): 0 Source: Developed by Drs. Lan Jimenez, Merry Doll, Abdi Serna and colleagues, with an educational andrei from [employer]. GWENDOLYN-7 Assessment Billing GWENDOLYN-7 Assessment Tool: GWENDOLYN-7 Assessment 49154 Review of Systems Const Reports no additional complaints Eyes Denies change in vision ENT Reports no additional complaints and Reports Normal hearing present Card Denies chest pain and Denies dyspnea Resp Denies chest congestion, Denies cough and Denies dyspnea GI Denies abdominal pain, Denies change in bowel habits and Denies heartburn Reports no additional complaints Musc Reports no additional complaints Skin/Breast Denies lesions and Denies rash Neuro Reports no additional complaints and Reports Normal hearing present Psych Reports no additional complaints Endo Reports no additional complaints Orestes/Lymph Reports no additional complaints Aller/Immun Reports no additional complaints Physical exam (Primary Care) Vital Signs: Last Vital Signs Temp 97.7 F 01/16/25 08:13 Pulse 61 01/16/25 08:13 Resp 16 01/16/25 08:13 BP 130/60 01/16/25 08:13 Pulse Ox 98 01/16/25 08:13 Oxygen Delivery Method Room Air 01/16/25 08:13 BMI result Body Mass Index 30.3 Tobacco/Smoking Status: Tobacco use Status Tobacco use date assessed 01/16/25 01/16/25 08:19 Patient Tobacco Use Status Current everyday Tobacco 01/16/25 08:13 Tobacco use type Cigarette 01/16/25 08:13 e-Cigarette/Vaping Use Never Used 01/16/25 08:13 PHQ-9: PHQ-9 Score PHQ-9: Total score 0 01/16/25 08:44 Depression Screening Interpretation: Negative Thrive Assessment: Date of Thrive Assessment Date Thrive assessed 01/16/25 01/16/25 08:19 Currently or been in a relationship where the following occur: I choose not to answer Const General: cooperative and no acute distress Nutritional Appearance: obese Orientation/consciousness: patient oriented x3 HENMT Head: Yes normocephalic Ears: external ears normal and TM's normal bilaterally General nose exam: Normal external nose present Mouth: moist mucous membranes Throat: Yes posterior oropharynx normal Eyes Pupils: Equal, round and reactive pupils present EOM: EOMs intact bilaterally Direct Ophthalmoscopy: normal light reflex Neck Neck: Yes full ROM and Yes no lymphadenopathy Thyroid: Thyroid normal Resp Effort & Inspection: normal respiratory effort and able to speak in complete s entences Auscultation: clear to auscultation bilaterally, no crackles, no rales, no rhonchi and no wheezes Cardio Heart sounds: S1 normal heart sound present and S2 normal heart sound present GI Inspection: Yes Abdominal panniculus present and Yes obesity Palpation (GI): Soft to palpation, nontender, no guarding and No hepatosplenomegaly present Percussion: Yes normal to percussion Auscultation: normal bowel sounds Skin General skin exam: no rashes or lesions noted Neuro General: patient oriented x3, gait normal and moves all extremities Cranial nerves: Yes Equal, round and reactive pupils present and Yes Normal hearing present Motor exam (neuro): 5/5 motor strength present throughout Extrem General: Yes full ROM and Yes capillary refill normal Psych Speech and movement: Normal speech and movement present Results Reviewed Results Reviewed: Name: Teddy Sanchez Age/Sex: 74/M : 1950 Unit#: [id number] Attend Dr: Edward Daley MD Re11/28/24 Status: REG SDC Location: [facility] Disch: SPEC : [id number] STEPHANIE: 11/28/24 STATUS: COMP REQ : [id number] RECD: 11/28/[address]: Jaren Benz COMP: 11/28/24 ENTERED: 11/28/[address] [facility] [address]: Jessica Berry MD, Pasquale MD ORDERED: CBC Auto Diff Test Result Flag Reference WBC 10.3 4.8-10.8 X10*3/uL RBC 4.77 4.60-5.80 X10*6/uL HGB 15.5 14.0-18.0 g/dl HCT 45.2 42.0-52.0 % MCV 94.8 80.0-98.0 fL MCH 32.5 27.0-33.0 pg MCHC 34.3 31.0-36.0 g/dl RDW 13.2 11.0-16.0 % PLT 334 # 160-400 X10*3/uL MPV 9.0 L 9.4-12.4 fL Neut Pct Auto 58.5 45-73 % ImGran Pct Auto 0.6 H 0.0-0.4 % Lymp Pct Auto 26.3 20-40 % Carlton Pct Auto 8.6 2-11 % Eos Pct Auto 5.2 H 0-4 % Baso Pct Auto 0.8 0-2 % NRBC Pct Auto 0.0 0.0-0.2 /100WBC ANC Neut Abs # 6.0 2.0-8.3 x10*3/uL ImGran Abs Auto 0.06 H 0.00-0.03 X10*3/uL Lymph Abs Auto 2.7 1.2-4.9 X10*3/uL Carlton Abs Auto 0.9 0.1-1.2 X10*3/uL Eos Abs Auto 0.5 H 0.0-0.4 X10*3/uL Baso Abs Auto 0.1 0.0-0.2 X10*3/uL NRBC Abs Auto 0.000 0.0-0.012 X10*3/uL Name: Teddy Sanchez Age/Sex: 74/M : 1950 Unit#: [id number] Attend Dr: Jessica Berry MD Re01/12/25 Status: DEP REF [facility] Disch: SPEC : [id number] STEPHANIE: 01/12/25 STATUS: COMP REQ : [id number] RECD: 01/12/[address]: Jessica Berry MD COMP: 01/13/25 ENTERED: 01/12/[address] [facility] [address]: ORDERED: PSA Free & Tot Test Result Flag Reference PSA Total 4.4 H < OR = 4.0 ng/mL PSA Free % 16 L >25 % (calc) PSA(ng/mL) Free PSA(%) Estimated(x) Probability of Cancer(as%) 0-2.5 (*) Approx. 1 2.6-4.0(1) 0-27(2) 24(3) 4.1-10(4) 0-10 56 11-15 28 16-20 20 21-25 16 >or =26 8 >10(+) N/A >50 References:(1)Judi et al.:Urology 60: 469-474 (2002) (2)Judi et al.:J.Urol 168: 922-925 (2002) Free PSA(%) Sensitivity(%) Specificity(%) < or = 25 85 19 < or = 30 93 9 Name: Teddy Sanchez Age/Sex: 74/M : 1950 Unit#: [id number] Attend Dr: Jessica Berry MD Re01/12/25 Status: DEP REF Location: [facility] Disch: SPEC : [id number] STEPHANIE: 01/12/25 STATUS: COMP REQ : [id number] RECD: 01/12/[address] [facility] [address]: Jessica Berry MD COMP: 01/12/25 ENTERED: 01/12/[address] [facility] [address]: ORDERED: Met Prof Fast, ALT, Lipid Panel, Vitamin D 25-OH, Free T4, TSH Test Result Flag Reference Sodium 141 135-145 mmol/L Potassium 4.3 3.3-5.1 mmol/L CL 109 H 96-108 mmol/L CO2 25 22-29 mmol/L Gap 11 L 12-20 BUN 9 9-16 mg/dL Creat 0.75 0.5-1.4 mg/dL eGFR > 60 Chronic Kidney Disease: Estimated GFR < 60 mL/min/1.73m2 Severe Kidney Disease: Estimated GFR < 15 mL/min/1.73m2 FBS 90 60-99 mg/dL CA 9.4 8.4-10.2 mg/dL ALT (GPT) 22 0-40 U/L Triglyceride 119 <150 mg/dL Desirable Triglyceride: less than 150 mg/dL Borderline High Triglyceride 150-199 mg/dL High Triglyceride: 200-499 mg/dL Very High Triglyceride: greater than or equal to 5OO mg/dL Cholesterol 173 <200 mg/dL Desirable Cholesterol: less than 200 mg/dL Borderline High Cholesterol: 200-239 mg/dL High Cholesterol: greater than 239 mg/dL LDL Calculated 104 H <100 mg/dL Desirable LDL: less than 100 mg/dL Near Optimal/Above Optimal LDL: 110-129 mg/dL Borderline High LDL: 130-159 mg/dL High LDL: 160-189 mg/dL Very High LDL: greater than or equal to 190 mg/dL HDL 46 >40 mg/dL Desirable HDL: greater than 40 mg/dL Note: This HDL assay may give artificially low results in patients with liver disease. Vitamin D 25-OH 60.9 >30 ng/mL Health Based Reference Values* < 20 ng/mL Deficient 20-30 ng/mL Insufficient > 30 ng/mL Sufficient *Belinda DMOINGUEZ. N Engl J Med. 2007;357:266-280 There is no well-established upper level of normal vitamin D levels. Some laboratories use 50 ng/mL as an upper limit of normal. However, toxicity is patient-dependent and may occur at any level. Careful correlation with the patient's presentation is necessary and, if there is concern for vitamin D toxicity, treatment should be considered irrespective of the serum level. Care must be taken in interpreting Vitamin D results from different laboratories and methodologies. Published data demonstrated that results from patients undergoing hemodialysis may show a negative bias when tested with various automated 25-OH vitamin D assays when compared to LC-MS/MS. When testing samples from patients whose predominant form of Vitamin D is Vitamin D2, such as patients receiving Vitamin D2 supplementation, results that are subtherapeutic should be confirmed with another method such as LC-MS/MS. Free T4 1.12 0.71-1.85 ng/dL TSH 3rd Gen. 1.22 0.32-4.0 uIU/mL TSH 3rd Generation ([facility]) Coding Level of Care Code Est Pt Level 4 (30044) Complex EM visit Add On G2211 Diagnoses Elevated prostate specific antigen [PSA] R97.20 Acquired hypothyroidism E03.9 Dyslipidemia E78.5 Essential hypertension I10 Recurrent major depressive disorder, in full remission F33.42 Active/Remission status: in full remission Depression Type: major depressive disorder Major depression recurrence: recurrent Additional Codes PHQ-9 - 36147 - PHQ-9 Billing: Yes ([id number]) GWENDOLYN-7 Assessment Billing - GWENDOLYN-7 Assessment Tool: GWENDOLYN-7 Assessment 44750 ([id number]) Assessment & Plan Assessment & Plan (1) Elevated prostate specific antigen [PSA]: Code(s): R97.20 - Elevated prostate specific antigen [PSA] Category: Medical Plan: Latest fasting labs showed elevated total PSA with normal free T4, urology consult ordered for further evaluation (2) Acquired hypothyroidism: Code(s): E03.9 - Hypothyroidism, unspecified Category: Medical Plan: Thyroid levels on latest labs are within normal limits, continued on current dose of levothyroxine at 100 mcg daily in a.m. an hour before breakfast (3) Dyslipidemia: Code(s): E78.5 - Hyperlipidemia, unspecified Category: Medical Plan: Latest fasting labs showed lipids well controlled on atorvastatin 10 mg daily (4) Essential hypertension: Code(s): I10 - Essential (primary) hypertension Category: Medical Plan: Continued on verapamil ER 240 mg daily, blood pressure stable and controlled (5) Depression: Code(s): F32.9 - Major depressive disorder, single episode, unspecified Category: Medical Qualifiers: Active/Remission status: in full remission Depression Type: major depressive disorder Major depression recurrence: recurrent Qualified Code(s): F33.42 - Major depressive disorder, recurrent, in full remission Plan: Doing well on venlafaxine ER, continue the same dose Orders: Orders Alanine Aminotransferase 06/26/25 E03.9 - Hypothyroidism, unspecified, E78.5 - Hyperlipidemia, unspecified, F33.42 - Major depressive disorder, recurrent, in full remission, I10 - Essential (primary) hypertension Basic Metabolic Panel Fasting 06/26/25 E03.9 - Hypothyroidism, unspecified, E78.5 - Hyperlipidemia, unspecified, F33.42 - Major depressive disorder, recurrent, in full remission, I10 - Essential (primary) hypertension Thyroid Stimulating Hormone 06/26/25 E03.9 - Hypothyroidism, unspecified, E78.5 - Hyperlipidemia, unspecified, F33.42 - Major depressive disorder, recurrent, in full remission, I10 - Essential (primary) hypertension Free T4 (Free Thyroxine) 06/26/25 E03.9 - Hypothyroidism, unspecified, E78.5 - Hyperlipidemia, unspecified, F33.42 - Major depressive disorder, recurrent, in full remission, I10 - Essential (primary) hypertension Vitamin D 25-OH Total 06/26/25 E03.9 - Hypothyroidism, unspecified, E78.5 - Hyperlipidemia, unspecified, F33.42 - Major depressive disorder, recurrent, in full remission, I10 - Essential (primary) hypertension Lipid Panel 06/26/25 E03.9 - Hypothyroidism, unspecified, E78.5 - Hyperlipidemia, unspecified, F33.42 - Major depressive disorder, recurrent, in full remission, I10 - Essential (primary) hypertension Aspartate Amino Transferase 06/26/25 E03.9 - Hypothyroidism, unspecified, E78.5 - Hyperlipidemia, unspecified, F33.42 - Major depressive disorder, recurrent, in full remission, I10 - Essential (primary) hypertension Referrals Urology Referral R97.20 - Elevated prostate specific antigen [PSA]
[2025-01-16 08:13] VITALS: BP 130/60; PULSE 61; RESP 16; TEMP 36.5; O2SAT 98; BMI 30.3
== END 2025-01-16 09:27 | disposition home or self-care (01) ==
LOC: HO.HMCC 08:03
PROVIDERS: PCP Internal Medicine; Visit Provider Internal Medicine
DX: R97.20 Elevated prostate specific antigen [PSA] (principal); F33.42 Major depressive disorder, recurrent, in full remission; E03.9 Hypothyroidism, unspecified; E78.5 Hyperlipidemia, unspecified; I10 Essential (primary) hypertension

== ENCOUNTER → 2025-01-16 08:03 | Outpatient (BNVA) | payer MEDICARE, MEDICAID, SELFPAY | PROVIDERS: PCP Internal Medicine; Visit Provider Internal Medicine | DX: R97.20 Elevated prostate specific antigen [PSA] (principal); E03.9 Hypothyroidism, unspecified; E78.5 Hyperlipidemia, unspecified; I10 Essential (primary) hypertension; F33.42 Major depressive disorder, recurrent, in full remission | CPT/HCPCS: 96127; 99212 ==

== ENCOUNTER 2025-01-31 10:34 | Outpatient (REF) | payer MEDICARE, MEDICAID, SELFPAY ==
--- NOTE | ~2025-01-31 | CT_ITS ---
CLINICAL HISTORY: LOCALIZED SWELLING MASS AND LUMP CT soft tissue neck with contrast Comparison: CT/XD/OT/VA/PT/SR - PET CT FUSION SKULL TO THIGH - 10/11/24 12:06 EST Findings: The visualized intracranial contents are unremarkable. No prevertebral fluid. Epiglottis is within normal limits. Pharyngeal mucosal space and parapharyngeal fat are normal. There is some enhancing tissue at the base of the tongue and surrounding the bilateral vallecula mostly effacing the right vallecula. This is not clearly separable from the right side of the epiglottis. No adenopathy is noted. Salivary glands are within normal limits. No sialoliths. No suspicious thyroid nodules. No consolidation at the lung apices. No acute fracture or dislocation. There is edema in the fat adjacent to the larynx perhaps related to radiation therapy. There also appears to be edema along the musculature inferior to the tongue also presumably related to radiation therapy. IMPRESSION: Enhancing tissue posterior to the base of the tongue and contiguous with the vallecula mostly effacing the right vallecula findings are suggestive of neoplasm though a discrete mass is not seen. Nonetheless this appears to be an infiltrative process corresponding to the findings on PET imaging. Suspected postradiation changes as noted above. This document has been electronically signed by: Alessandro Macario MD on 02/01/2025 10:37:20
[2025-01-31] MEDS: iohexoL 350 MG/ML 75 ML INFUS..BTL 60 ML IV (11:30)
--- OUTSIDE RECORDS SUMMARY | 2025-01-31 12:39 | XMS_ITS | Encounter Summary ---
Author Organization [employer] Address [address] [place] [address] Care Team Providers Care Surgical Services Tech Name Role Phone Unavailable Primary Care Provider Unavailabl e Encounter Details Date Type Department Care Team (Latest Contact Info) Description 01/25/2019 Abstract [facility] CONVERSIONS Dental, Provider, DDS Social [...]
--- OUTSIDE RECORDS SUMMARY | 2025-01-31 12:39 | XMS_ITS | Data Portability ---
Author Organization [place] - [facility], Allergy Address [address] [place] [address] Care Team Providers Care Software Reverse Engineer Name Role Phone LUTHER MAXWELL Referring Provider [...] Barb Luis Fernando [place] [id number] Not Available [address], [place], [address], 11/24/2024 13:47:02 11/21/1911/21/2024 TISSU E EXAM final [...] lled lingu al tonsi l. - [facility] [...] on 2024 at 1:43 PM Not Available [address], [address], 11/24/2024 13:47:02 11/21/19 25 11/21/2024 TISSU E EXAM clinical information Signif icant smokin g histor y, Right base of tongue PET avid mass. Not Available [address], [address], 11/24/2024 13:47:02 11/21/19 25 11/21/2024 TISSU E [...] appro ximat nithya 0.3 cm in [facility] [place], which are wrapp ed in [...] on one slide . CARLOS Not Available [address], [address], 11/24/2024 13:47:02 11/21/19 25 11/21/2024 TISSU E EXAM disclaimer NOTE: The immun ohist ochem ical tests and in situ hybri dizat ion tests were devel oped and their perfo rmanc e irais cteri stics were deter mined by [facility] log[facility] Labor [...] as inves tigat ional or for resea [facility]. This labor atory is certi fied under the Clini lorraine Labor atory Impro vemen t Amend ments of 1987 (CLIA ) as quali fied to perfo rm high compl exity clini lorraine labor atory testi ng. (cont rols appro priat e) Unles s other oneill speci fied, all tissu e is 10% NB forma terence fixed and paraf fin embed ded. Not Available [address], [address], 11/24/2024 13:47:02 11/21/19 25 11/21/2024 H&P No observ ation record ed. [address], [address], 11/23/2024 09:02:03 11/21/19 25 11/21/2024 brief op note No observ ation record ed. [address], [address], 11/23/2024 09:02:03 11/21/19 25 11/21/2024 op note No observ ation record ed. [address], [address], 11/23/2024 09:02:03 12/19/19 25 11/21/2024 clini lorraine photo * No observ ation record ed. [email or web address] Not Available 11/27 10:20:25 Result Notes None recorded. Problems Name Problem SNOMED Code Status Onset Date Resolution Date Notes Provider Name and Address Organization Details Recorded Time Mass of head and/or neck 423800851 Active 2024 PRIYANKA DONNELLY MD [address] [place], [place] [address], [phone], [facility] - [facility] 13:34:45 Mass of tongue 516685082 Active 2024 PRIYANKA DONNELLY MD [address] [address], [place], [address], [place] - [facility] 13:34:55 Continuous dependence on cigarette smoking 4935452668529 08 Active 2024 PRIYANKA DONNELLY MD [address] [address], [place], [address], [place] - [facility] [place] 15:12:50 Lung mass 587480510 Active 2024 PRIYANKA DONNELLY MD [address] [address], [place], [address], [place] - [facility] 15:12:53 Problem Notes None recorded. Procedures Surgical History Date Name Laterality Status Provider Name and Address Organization Details Recorded Time 11/21/19 25 direct laryngoscopy with biopsy completed HUGO SUGGS MD [address] [address], [place], [address], [facility] - [facility] 11/21/2024 15:22:09 11/08/19 25 Fiberoptic Laryngoscopy (Comprehensive) completed PRIYANKA DONNELLY MD [address] [address], [place], [address], [facility] - [facility] 11/08/2024 15:10:10 Imaging Results Imaging Date Name Status LastModified by Organiz ation Details LastModified Time 11/21/2024 H&P completed [address], [address], 11/23/2024 09:02:03 11/21/2024 brief op note completed [address], [address], 11/23/2024 09:02:03 11/21/2024 op note completed [address], [address], 11/23/2024 09:02:03 11/21/2024 clinical photo* completed [email or web address] Information not available 12/19/2024 10:20:25 Procedure Notes [...] Details Last Updated DateTime 11/08/2024 172.72 cm 93265.74 g Elvira Saldivar [place] - [facility] 11/08/2024 12:59:57 Social History None [...] Disorder N Anesthesia Complications N Heart Attack ([place]) N Other Skin Condition N Diabetes N [...] SNOMED-CT Code Diagnosis ICD10 Code Diagnosis Note [id number] PRIYANKA DONNELLY MD [facility] [address] [address] 11/08/2024 12:34:11 11/08/2024 15:57:41 Mass of tongue 032049928 R22.0 Continuous dependence on cigarette smoking 2092055266 16450 F17.210 Lung mass 689963447 R91. 8 Health Concerns Section Related Observation LastModified by Organization Detai ls LastModified Time None Recorded Concern Status LastModified by Organization Details LastModified Time None Recorded Advance Directives Directive None Recorded Payers Encounter Date Sequence Insurance Name Policy Number Policy Bruner Covered Member ID Bruner Member ID Guarantor Name 11/08/2024 1 [facility]: MEDICARE PPO BLUE (MEDICARE REPLACEMENT PPO) [id number] [facility] [id number] [facility] Notes Date Note Type [...] extending to the midline. PRIYANKA DONNELLY MD [address] [place] [address], [place], [address], [place] - [facility] 11/08/2024 15:13:12
--- OUTSIDE RECORDS SUMMARY | 2025-01-31 12:39 | XMS_ITS | Clinical Summary ---
Author Organization [facility] Address [address] [place] [address] Phone Care Team Providers Care Maintenance Specialist Name Role Phone Jessica Berry MD Primary [...] Description 11/21/2024 12:45 PM EST Anesthesia Event [facility] OR [address] [place] [phone] David Olsen DO Hard, Shannon, CRNA 11/21/2024 11:45 AM EST - 11/21/2024 1:15 PM EST Surgery [facility] OR [address] [place] [address] Sharee Carroll MD DIRECT LARYNGOSCOPY W/ BIOPSY [[id number] (CPT??)] 11/21/2024 10:06 AM EST - 11/21/2024 3:51 PM EST Hospital Encounter [facility] OR [address] [place] [phone] Sharee Carroll MD Localized swelling, mass and [...] DTaP,Tdap,and Td Vaccines (1 - Tdap) 1970 Pneumococcal Vaccine: [...] Falls Risk Assessment 11/21/2025 11/21/2024 RSV Immunization Adult Patie nts (1 - 1-dose 75+ series) 2026 HIB [...] age to complete this topic Meningococcal B Vaccine Aged Out No l onger eligible based on patient's age to complete this topic RSV Immunization Patients Un shaheed 20 months Aged Out No longer eligible b ased on patient's age to complete this topic Varicella Vaccines Aged Out No longer eligible based on patient's age to complete this topic Medical Devices Implanted Type Area Bioanalyst Device Identifier Shelf Expiration Date Model / Serial / Lot Prolaryn Plus Voice Injection 1cc - Sn/A - [id number] Implanted:Qty: 1 on 11/21/2024 by Sharee Carroll MD at [facility] [employer] N/A: Throat [employer] [id number] / N/A / N/A Procedures Procedure Name Priority Date/Time Associated Diagnosis Comments TISSUE EXAM Routine 11/21/2024 1:11 PM EST Localized swelling, mass and lump, head TH AN ENDOTRACHEAL(NO CHARGE) Routine 11/21/2024 1:03 PM EST [place] LARYNGOSCOPY DIRECT OPERATIVE WITH BIOPSY 11/21/2024 12:45 [...] including occasional follicles (highlighted by their associated PG08-wolbyejc dendritic cell meshwork and CD10). The OQ82-nwtquurj follicle center cells appear largely negative for [...] including occasional follicles (highlighted by their associated XA37-vovhgyim dendritic cell meshwork and CD10). The PR47-kjdmtnev follicle center cells appear largely negative for BCL2 and there is no coexpression of CD5 by the B cells. Cyclin D1 is negative. The overall findings support interpretation as a reactive lymphoid population. The p16 immunohistochemical study shows no block-like staining in the epithelium. 1:43 PM [facility] Clinical Information Significant smoking history, Right base of tongue PET avid mass. 1:43 PM [facility] Gross Description A. Tongue, [...] on one slide. CARLOS 1:43 PM EST [facility] Disclaimer NOTE: The immunohistochemical tests and in situ hybridization tests were developed and their performance characteristics were determined by [facility]. They have not been cleared [...] fixed and paraffin embedded. 1:43 PM EST [facility] Tissue Tongue structure / Unknown 11/21/2024 [...] MD LAB PATHOLOGY ORDERABLES Fin al Result [facility] [address] [place] [address], * TH AN ENDOTRACHEAL(NO CHARGE) (11/21/2024 1:03 PM EST) Kristi Perez CRNA - 11/21/2024 1:03 PM EST Kristi Reis CRNA ? 11/21/2024 ??1:05 PM General Information and Staff Patient location during procedure: OR Anesthesiologist: David Olsen DO Resident/VAULT PERSON: Kristi Reis CRNA Performed: resident/VAULT PERSON/CAA Performed by: Kristi Reis CRNA Authorized by: [...] ms GEMUSE QTc 487 ms GEMUSE R [place] -45 degrees GEMUSE T [place] 109 degrees GEMUSE ECG Interpretation Sinus rhythm [...] Documents on File Type Date Recorded Patient Public Health Sanitarian Expl anation Health Care Decision (hx) 11/25/2012 AD ZHANG DIRECTIVE Health Care Decision (hx) 11/25/2012 AD ZHANG DIRECTIVE Health Care Decision (hx) 11/25/2012 AD ZHANG DIRECTIVE Health Care Decision (hx) 11/25/2012 AD ZHANG DIRECTIVE Health Care Decision (hx) 11/25/2012 AD ZHANG DIRECTIVE Care Teams Maintenance Specialist Relationship Specialty Start Date End Date Jessica Berry MD [address] [facility] [place] [address] PCP - General Internal Medicine 08/03/12
--- OUTSIDE RECORDS SUMMARY | 2025-01-31 12:39 | XMS_ITS | Clinical Summary ---
Author Organization [employer] Address [address] [facility] [address] [place] [address] Care Team Providers Care Shoe Coverer Name Role Phone Unavailable Primary Care Provider [...]
== END 2025-01-31 10:35 | disposition home or self-care (01) ==
LOC: HO.CT 10:34
PROVIDERS: PCP Internal Medicine; Visit Provider Otolaryngology
DX: R22.0 Localized swelling, mass and lump, head (principal)
CPT/HCPCS: 70491; Q9967

== ENCOUNTER → 2025-01-31 10:37 | Outpatient (BNV) | payer MEDICARE, MEDICAID, SELFPAY | PROVIDERS: PCP Internal Medicine; Visit Provider Radiology Diagnostic Radiology | DX: R22.1 Localized swelling, mass and lump, neck (principal) | CPT/HCPCS: 70491 ==

== ENCOUNTER 2025-03-16 08:55 | Outpatient (AMB) | payer MEDICARE, MEDICAID, SELFPAY ==
--- NOTE | 2025-03-16 08:59 | A.OFFVIS_ITS ---
Intake Visit Reasons: elevated PSA Intake Note: Patient is present for ELEVATED PSA Urology Medication:NONE Antibiotic Allergy:AMOXICILLIN Blood Thinner:NONE Stile Ripsaw Operator Required: No Allergies amoxicillin Adverse Reaction (Mild, Verified 03/16/25 09:01) diarrhea HPI Comments Details: Wisam is a pleasant male. He is a patient of Dr. Berry. He is seen for the following urologic conditions - elevated PSA Elevated PSA PSA 4.4 16% Minimal urinary symptoms adequate stream strength, effective emptying No family history of prostate issues MARGARET 1+ soft nodule right side Trial finasteride six-month repeat PSA [facility] Medical History (Updated 01/16/25 @ 08:50 by Jessica Berry MD) Elevated prostate specific antigen [PSA] History of adenomatous polyp of colon History of ankle fracture History of fibula fracture Closed right fibular fracture Erectile dysfunction Depression Essential hypertension Dyslipidemia Acquired hypothyroidism Hypertrophic obstructive cardiomyopathy Surgical History (Updated 01/16/25 @ 08:50 by Jessica Berry MD) Hx of colonoscopy History of surgery History of tonsillectomy Family History Mother CAD (coronary artery disease) CVD (cardiovascular disease) Sister No problems noted. Son Mental health disorder Daughter No problems noted. Social History Housing: Apartment Alcohol intake: current Patient Tobacco Use Status: Current everyday Tobacco user Tobacco use type: Cigarette Cigarette Packs Per Day: 0 Cigarettes Per Day: 10 e-Cigarette/Vaping Use: Never Used Substance Use Type: Marijuana Current occupational status: retired Cognitive needs: No Hearing needs: No Vision needs: Yes Review of Systems Const Denies chills and Denies fever(s) Card Reports no additional complaints and Denies syncope Resp Denies cough GI Denies abdominal pain and Denies heartburn Reports as per HPI and Denies change in libido Neuro Denies syncope Psych Denies change in libido Endo Denies change in libido Physical Exam Const General: cooperative, healthy appearing, comfortable and no acute distress Orientation/consciousness: patient oriented x3 HEENT Face and sinus: Yes normal facial exam Mouth: moist mucous membranes Neck Neck: Yes normal visual inspection, Yes full ROM and Yes trachea midline Chest Chest palpation & inspection: normal inspection of the chest Resp Effort & Inspection: normal respiratory effort, able to speak in complete sentences and no respiratory distress GI Inspection: Yes normal to inspection Rectal Exam - Male: Yes normal sphincter tone and Yes prostate normal Male General Exam: Yes normal external exam Penis: normal penis and circumcised Meatus: meatus normal Scrotum: scrotum normal Testes: Testes normal Back/Spine/Pelvis Cervical Spine: normal cervical lordosis Thoracic/Lumbar Spine: thoracic and lumbar spine normal to inspection Skin General skin exam: no rashes or lesions noted Neuro General: patient oriented x3, gait normal, tone normal and moves all extremities Extrem General: Yes normal to inspection and Yes capillary refill normal Results AMB Urinalysis, Automated UA Leukoctes 0 Massimo/uL Last Edit by ANTOINETTE Frazier on 03/16/25 09:14 UA Nitrite Negative Last Edit by ANTOINETTE Frazier on 03/16/25 09:14 UA Urobilinogen 0.2 mg/dL Last Edit by ANTOINETTE Frazier on 03/16/25 09:1 4 UA Protein 15 mg/dL Last Edit by ANTOINETTE Frazier on 03/16/25 09:14 UA pH 6.0 Last Edit by ANTOINETTE Frazier on 03/16/25 09:14 UA Blood 0 Erlin/uL Last Edit by ANTOINETTE Frazier on 03/16/25 09:14 UA Specific [place] 1.025 Last Edit by ANTOINETTE Frazier on 03/16/25 09: 14 UA Ketone Negative Last Edit by ANTOINETTE Frazier on 03/16/25 09:14 UA Bilirubin 0 mg/dL Last Edit by ANTOINETTE Frazier on 03/16/25 09:14 UA Glucose 0 mg/dL Last Edit by ANTOINETTE Frazier on 03/16/25 09:14 Assessment & Plan Assessment & Plan (1) Elevated prostate specific antigen [PSA]: Code(s): R97.20 - Elevated prostate specific antigen [PSA] Category: Medical Plan Trial finasteride Six-month follow-up PSA Bladder ultrasound prostate volume Orders: Orders PSA,Total (Free>4and<10) 6 Months R97.20 - Elevated prostate specific antigen [PSA] AMB Urinalysis Automated Today Z13.9 - Encounter for screening, unspecified US bladder Today R97.20 - Elevated prostate specific antigen [PSA] Medications: New finasteride 5 mg PO DAILY 90 days 90 tabs 1RF R97.20 - Elevated prostate specific antigen [PSA] Patient Instructions: This note is constructed using voice recognition software. While every effort has been made to ensure accuracy traffic lieutenant errors may have been included. Imaging studies, laboratory and physical exam results were discussed and reviewed in detail. No major barriers to patient understanding were identified. An opportunity to ask questions regarding the treatment plan was provided. All questions were answered. The patient expressed understanding and agreement with the above treatment plan. The patient is aware they should contact our office by phone for worsening of their current condition or the appearance of new urologic symptoms. Compliance is encouraged with any medications and followup testing that is ordered. It is a privilege to participate in the urologic care of your patient. If you have any questions or concerns regarding treatment for the above conditions, or other urologic issues, please do not hesitate to contact me. The office telephone contact is [phone]. Sincerely, Dr Jonatan Lomas MD, ALEXANDRA [facility] - Urology Compassionate Specialist Care for the Genitourinary System Coding Level of Care Code New Pt Level 4 (74695) Diagnoses Elevated prostate specific antigen [PSA] R97.20
--- OUTSIDE RECORDS SUMMARY | 2025-03-16 09:05 | XMS_ITS | Encounter Summary ---
Author Organization [employer] Address [address] [facility] [address] [place] [address] Care Team Providers Care Printed Circuit Board Panels Trimmer Name Role Phone Unavailable Primary Care Provider Unavailabl e Encounter Details Date Type Department Care Team (Latest Contact Info) Description 01/25/2019 Abstract [facility] CONVERSIONS Dental, Provider, DDS Social History Tobacco [...]
--- OUTSIDE RECORDS SUMMARY | 2025-03-16 09:05 | XMS_ITS | Data Portability ---
Author Organization [place] - [facility], All[facility] Address [address] [place] [address] Care Team Providers Care Milker Machine Name Role Phone LUTHER MAXWELL Primary Care Provider Assessment Encounter Date Assessment Date Assessment [...] Organization Details Last Modified Time Details Appointments Establish ed 15 2024 09:00A Juve SUGGS MD Not available Not available Not available Lab None recorded. Referral None recorded. Procedures None recorded. Surgeries laryngosc opy, direct, with biopsy (SURG) 2024 025 [email or web address] Not available 01/11/2025 10:25:01 Imaging None recorded. Medication Orders None recorded. Patient TargetsNo targets recorded. Patient InstructionsNo instructions recorded. Reason for Referral None Reported. Results Created Date Observation Date Name Description Value Unit Range Abnormal Flag Note LastModifiedBy Organization Detail LastModifiedTime 11/21/19 25 11/21/2024 TISSU E EXAM .note See Note Origi nal Order ing Provi shaheed: MICHAELLE Aldo ROSS LEÓN [facility] - [address] [place] [address] Not Available [address], [place], [address], 11/24/2024 13:47:02 11/21/1911/21/2024 TISSU E EXAM final [...] oid popul ation . The p16 immun [facility] ical study shows no block -like stain [...] lled lingu al tonsi l. - Immun [facility] ical studi es were perfo rmed and [...] in the epith elium . Elect tony backe d by Leo Sam MD on 2024 at 1:43 PM Not Available [address], [address], 11/24/2024 13:47:02 11/21/19 25 11/21/2024 TISSU E EXAM clinical information Signif icant smokin g histor y, Right base of tongue PET avid mass. Not Available [address], [address], 11/24/2024 13:47:02 11/21/19 25 11/21/2024 TISSU E [...] appro ximat nithya 0.3 cm in great est [facility], which are wrapp ed in [...] on one slide . CARLOS Not Available [address], [address], 11/24/2024 13:47:02 11/21/19 25 11/21/2024 TISSU E EXAM disclaimer NOTE: The immun ohist ochem ical tests and in situ hybri dizat ion tests were devel oped and their perfo rmanc e irais cteri stics were deter mined by [facility] Labor [...] as inves tigat ional or for resea [facility]. This labor atory is certi [...] and paraf fin embed ded. Not Available [address], [address], 11/24/2024 13:47:02 01/28/20 25 01/28/2025 BUN BUN 10 mg/dL 8-27 normal Not Available [facility] [address] [place], [address], 01/30/2025 13:01:56 01/28/20 25 01/28/2025 CREAT ININE creatinine 0.89 mg/dL 0.76-1 .27 normal Not Available [facility] ([facility] [address] [place], [address], 01/30/2025 13:01:57 01/28/20 25 01/28/2025 CREAT ININE eGFR 90 mL/mi n/1.7 3 >59 normal Not Available [facility] ([facility] [address] [place], [address], 01/30/2025 13:01:57 11/21/19 25 11/21/2024 H&P No observ ation record ed. [address], [address], 11/23/2024 09:02:03 11/21/19 25 11/21/2024 brief op note No observ ation record ed. [address], [address], 11/23/2024 09:02:03 11/21/19 25 11/21/2024 op note No observ ation record ed. [facility] [address] [facility], [place], [address], 11/23/2024 09:02:03 12/19/19 25 11/21/2024 clini lorraine photo * No observ ation record ed. [email or web address] Not Available 11/27 10:20:25 02/25/20 25 02/01/2025 CT, neck, soft tissu e, w/ contr ast No observ ation record ed. [facility] [place] [address], [place], [address], 03/01/2025 09:51:50 Result Notes None recorded. Problems Name Problem SNOMED Code Status Onset Date Resolution Date Notes Provider Name and Address Organization Details Recorded Time Mass of head and/or neck 219870097 Active 2024 PRIYANKA DONNELLY MD [address] [place] [address], [facility] [place], [address], [facility] - [facility] 13:34:45 Mass of tongue 152998368 Active 2024 PRIYANKA DONNELLY MD [address] [place] [address], [facility] [place], [address], [facility] - [facility] 13:34:55 Continuous dependence on cigarette smoking 9373366776857 08 Active 2024 PRIYANKA DONNELLY MD [address] [place] [address], [place], [address], [place] - [facility] 15:12:50 Lung mass 855297934 Active 2024 PRIYANKA DONNELLY MD [address] [place] [address], [place], [phone], [facility] - [facility] 15:12:53 Problem Notes None recorded. Procedures Surgical History Date Name Laterality Status Provider Name and Address Organization Details Recorded Time 02/25/20 25 Fiberoptic Laryngoscopy (Comprehensive) completed HUGO SUGGS MD [address],[place] [address], [place], [address], [facility] - [facility] 03/01/2025 09:35:14 11/21/19 25 direct laryngoscopy with biopsy completed HUGO SUGGS MD [address] [facility] [address], [place], [address], [facility] - [facility] 11/21/2024 15:22:09 11/08/19 25 Fiberoptic Laryngoscopy (Comprehensive) completed PRIYANKA DONNELLY MD [address] [facility] [address], [place], [address], [facility] - [facility] 11/08/2024 15:10:10 Imaging Results Imaging Date Name Status LastModified by Organiz ation Details LastModified Time 11/21/2024 H&P completed [address], [address], 11/23/2024 09:02:03 11/21/2024 brief op note completed [address], [address], 11/23/2024 09:02:03 11/21/2024 op note completed [address], [address], 11/23/2024 09:02:03 11/21/2024 clinical photo* completed [email or web address] Information not available 12/19/2024 10:20:25 02/01/2025 CT, neck, soft tissue, w/ contrast completed [facility] [place] [address], [place], [address], 03/01/2025 09:51:50 Procedure Notes None recorded. Medical Equipment None [...] 150 mg capsule,ext ended release 24 hr TAKE 1 CAPSULE DAILY active Not Available Not Available No t Available gabapentin 800 mg tablet TAKE 1/2 [...] Available Vitals Date Recorded Body height Body mass index (BMI) Body weight Provider Name and Address Organization Details Last Updated DateTime 02/24/2025 168.91 cm 31.5 kg/m2 33518.29 g Jesusita Patterson [place] [facility] 02/24/2025 08:53:12 Date Recorded Body height Body weight Provider Name and Address Organization Details Last Updated DateTime 11/08/2024 172.72 cm 05041.74 g Elvira Saldivar [place] [facility] 11/08/2024 12:59:57 Social History None recorded. Functional Status None recorded. Mental Status None recorded. Family History Nothing Reported. Medical History Condition Response Tonsil Infections N Emphysema N Glaucoma N Depression Y COPD N Nasal or Sinus Problems N Anesthesia Complications N Arthritis N Hearing Loss N Cancer N Stroke N High Cholesterol N Liver Disease N Headaches N Fibromyalgia N Speech Delay N Kidney Disease N Allergies/Hayfever N Heart Problems Y Anxiety Y Migraines N Thyroid Problems Y Developmental Delay N Anemia N Immune System Disorder N Heart Attack ([place]) N Other Skin Condition N Diabetes N Rhinitis N Bleeding Disorder N Food Allergy N Hyperlipidemia N Dementia N Nasal polyps N Asthma N Sleep Disorder N GERD/Reflux N Hypertension N Past Encounters Encounter ID Performer Location Encounter Start Date Encounter Closed Date Diagnosis/Indication Diagnosis SNOMED-CT Code Diagnosis ICD10 Code Diagnosis Note [id number] PRIYANKA DONNELLY MD [facility] [address] [address] 11/08/2024 12:34:11 11/08/2024 15:57:41 Mass of tongue 646098941 R22.0 Continuous dependence on cigarette smoking 8411874685 92084 F17.210 Lung mass 426342558 R91. 8 [id number] HUGO SUGGS MD [facility] [address] [address] 02/24/2025 08:35:48 02/24/2025 09:24:55 Mass of tongue 516482609 R22.0 74-year-ol d male, smoker, initially presented with incidental base of tongue hyperactiv ity on PET scan performed to evaluate a lung nodule. He went to the operating room and biopsy in the affected area did not show any neoplasm but some prominent lymphoid infiltrate including occasional reactive follicles. He did have a CT scan a few weeks ago for reassessme nt and it did show concern for an infiltrati ve lesion. I do not have the images to review.He remains asymptomat ic and on repeat flexible laryngosco py today, there is no ulcerative or friable lesion.We discussed that his physical exam, lack of any symptoms, and biopsy results are all reassuring , but I would want to continue close monitoring giving imaging findings especially given his tobacco history. I did recommend repeat physical exam in about 3 months, with sooner appointmen t should he develop any dysphagia, otalgia, sore throat. Health Concerns Section Related Observation LastModified by Organization Detai ls LastModified Time None Recorded Concern Status LastModified by Organization Details LastModified Time None Recorded Advance Directives Directive None Recorded Payers Insurance Date Sequence Insurance Name Policy Number Policy Bruner Covered Member ID Bruner Member ID Guarantor Name 02/24/2025 1 [place]MED[place]ARE [place] PPO) [id number] Teddy Altman Daniel [id number] Teddy Dunnros 03/02/2025 1 [place] HMO) [id number] Teddy Altman Daniel [id number] Teddy Corraleiros Notes Date Note Type Note Provider Name [...] extending to the midline. PRIYANKA DONNELLY MD [address] [place] [address],[address], [address], [place] - [facility] 11/08/2024 15:13:12 02/24/2025 text/html No sore throat, dysphagia, otalgia. CT scan showing concern for infiltrative lesion. HUGO SUGGS MD [address] [place] [address],[place] [address], [place], [address], [place] [facility] 03/01/2025 09:39:19
--- OUTSIDE RECORDS SUMMARY | 2025-03-16 09:06 | XMS_ITS | Clinical Summary ---
Author Organization [facility] Address [address] [place] [phone] Phone Care Team Providers Care Station Superintendent Name Role Phone Jessica Berry MD Primary [...] bedtime. Do not crush or chew. 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 TONSILLECTOMY Medical History Medical History Date Comments Dysphagia occasional Hypothyroidism Depression Anxiety Neuromuscular disorder (CMS/HCC V24, CMS/HCC V28 ) peripheral neuropathy Joint pain r knee Deviated [...] - 2023-2 5 season) 2024 Influenza Vaccine (Season Ended) 2025 Falls Risk Assessment 11/21/2025 11/21/2024 RSV Immunization [...] this topic Medical Devices Implanted Type Area Photographic Artist Device Identifier Shelf Expiration Date Model / Serial / Lot Prolaryn Plus Voice Injection 1cc - Sn/A - [id number] Implanted:Qty: 1 on 11/21/2024 by Sharee Carroll MD at [facility] [employer] N/A: Throat [employer] [id number] / N/A / N/A Insurance [place] Advance Directives Documents on File Type Date Recorded Patient Top Inventory Control Executive Expl anation Health Care Decision (hx) 11/25/2012 AD ZHANG DIRECTIVE Health Care Decision (hx) 11/25/2012 AD ZHANG DIRECTIVE Health Care Decision (hx) 11/25/2012 AD ZHANG DIRECTIVE Health Care Decision (hx) 11/25/2012 AD ZHANG DIRECTIVE Health Care Decision (hx) 11/25/2012 AD ZHANG DIRECTIVE Care Teams Station Superintendent Relationship Specialty Start Date End Date Jessica Berry MD [address] [place] [address] PCP - General Internal Medicine 08/03/12
--- OUTSIDE RECORDS SUMMARY | 2025-03-16 09:06 | XMS_ITS | Clinical Summary ---
Author Organization [employer] Address [address] [facility] [address]t [place] [address] Care Team Providers Care Bag Washer Name Role Phone Unavailable Primary Care Provider [...]
== END 2025-03-16 09:25 | disposition home or self-care (01) ==
LOC: HO.HUSH 08:55
PROVIDERS: PCP Internal Medicine; Visit Provider Urology
DX: Z13.9 Encounter for screening, unspecified (principal); R97.20 Elevated prostate specific antigen [PSA]
CPT/HCPCS: 99204

== ENCOUNTER → 2025-03-16 08:55 | Outpatient (BNVA) | payer MEDICARE, MEDICAID, SELFPAY | PROVIDERS: PCP Internal Medicine; Visit Provider Urology | DX: R97.20 Elevated prostate specific antigen [PSA] (principal) | CPT/HCPCS: 81003; 99202 ==

== ENCOUNTER 2025-08-03 07:25 | Outpatient (REF) | payer MEDICARE, MEDICAID, SELFPAY ==
[2025-08-03 10:34] LABS: Alanine Aminotransferase 19 U/L (0-40); Anion Gap 9 (12-20); Aspartate Amino Transferase 34 U/L (5-37); Blood Urea Nitrogen 10 mg/dL (9-16); Calcium 9.1 mg/dL (8.4-10.2); Carbon Dioxide 27 mmol/L (22-29); Chloride 107 mmol/L (96-108); Cholesterol 179 mg/dL (<200); Estimated Glomerular Filt Rate > 60; HDL Cholesterol 34 mg/dL (>40); Potassium 4.1 mmol/L (3.3-5.1); Sodium 139 mmol/L (135-145); Triglycerides 177 mg/dL (<150)
[2025-08-03 10:55] LABS: Free T4 (Free Thyroxine) 0.99 ng/dL (0.71-1.85); Thyroid Stimulating Hormone 1.10 uIU/mL (0.32-4.0)
== END 2025-08-03 07:26 | disposition home or self-care (01) ==
LOC: HO.HMGCLDS 07:25
PROVIDERS: PCP Internal Medicine; Visit Provider Internal Medicine
DX: I10 Essential (primary) hypertension (principal); F33.42 Major depressive disorder, recurrent, in full remission; E78.5 Hyperlipidemia, unspecified; E03.9 Hypothyroidism, unspecified
CPT/HCPCS: 36415; 80048; 80061; 82306; 84439; 84443; 84450; 84460

== ENCOUNTER 2025-08-08 08:36 | Outpatient (AMB) | payer MEDICARE, MEDICAID, SELFPAY ==
--- OUTSIDE RECORDS SUMMARY | 2025-08-08 08:58 | XMS_ITS | Clinical Summary ---
Author Organization [facility] Address [address] [place] [phone] Phone Care Team Providers Care Solar Installation Helper Name Role Phone Jessica Berry MD Primary Care Provider Dawson Kumar MD Unavailable Iron Cheng MD Unavailable [phone] Allergies Active Allergy Reactions Criticality Noted Date Comments Metoprolol Other (See Comments) 11/25/2013 excessive fatigue Active Problems Problem Noted Date Diagnosed Date Neuropathy 02/09/2014 Overview (12/16/2014): Neuropathy Uncoded S/P Surgical procedure 12/09/2013 Overview (12/16/2014): S/P Surgical procedure; Resection 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 Dyslipidemia 12/15/2012 Overview (12/16/2014): Dyslipidemia Heart murmur 12/15/2012 Overview (12/16/2014): Heart murmur Dyspnea 12/15/2012 Overview (12/16/2014): Dyspnea Fatigue 12/15/2012 Overview (12/16/2014): Fatigue Hypertrophic cardiomyopathy 11/12/2012 Overview (12/16/2014): Hypertrophic cardiomyopathy Immunizations Immunization Administration Dates Next Due Influenza, Unspecified Formulation 11/08(Deferred: Other - , Ordered By: [id number]),12/01/2012(Deferred: Other) Pneumococcal, Unspecified Formulation (Deferred: Other - , Ordered By: [id number]) Social History Tobacco Use Types Packs/Day Years Used Date Smoking Tobacco: Former Sex and Gender Information Value Date Recorded Sex Assigned at Not on file Legal Sex Male 7:51 PM EST Gender Identity Not on file Sexual Orientation Not on file Last Filed Vital Signs Vital Sign Reading Time Taken Comments Blood Pressure 111/78 02/20/2014 1:28 PM EDT Pulse 89 02/20/2014 1:28 PM EDT Temperature 37.1 C (98.8 F) 02/20/2014 1:28 PM EDT Respiratory Rate 12 12/14/2012 3:49 PM EST Oxygen Saturation - - Inhaled Oxygen Concentration - - Weight 89.4 kg (197 lb 3.2 oz) 02/20/2014 1:28 P M EDT Height 167.6 cm (5' 6 ) 02/20/2014 1:28 PM EDT Body Mass Index 31.83 02/20/2014 1:28 PM EDT Plan of Treatment Not on file Medical Devices Not on file Care Teams Solar Installation Helper Relationship Specialty Start Date End Date Jessica Berry MD [address] [place] [address] PCP - General 03/01/15 Dawson Kumar MD [address] [place] [phone] [email or web address], [facility]1983 Historical LMR Provider 03/10/15 Iron Cheng MD [address] [place] [phone] [email or web address], [facility] Historical LMR Provider 03/10/15 Additional Source Comments The information contained in this document represents components of the legal health record. It is not the complete legal health record.[facility]
--- OUTSIDE RECORDS SUMMARY | 2025-08-08 08:58 | XMS_ITS | Clinical Summary ---
Author Organization [employer] Address [address] [facility] 7t [place] [address] Care Team Providers Care Duplicate Maker Name Role Phone Unavailable Primary Care Provider [...] Vaccines (1 of 2) 2001 COVID-19 Vaccine (1 - 2023-2 5 season) 2025 Influenza Vaccine (#1) 2025 RSV Patients and Pa tients Aged 60 [...]
--- OUTSIDE RECORDS SUMMARY | 2025-08-08 08:58 | XMS_ITS | Encounter Summary ---
Author Organization [facility] Address [address] [place] [phone] Phone Care Team Providers Care Clinical Applications Manager Name Role Phone Jessica Berry MD Primary Care Provider Dawson Kumar MD Unavailable Iron Cheng MD Unavailable Encounter Details Date Type Department Care Team (Late st Contact Info) Description 06/28/2015 Transcribe Orders [facility] [address] [place], [place] [id number] Ameena Lozano [address] [place] [phone] [email or web address] Social History Tobacco Use Types Packs/Day Years Used Date Smoking Tobacco: Former Sex and Gender Information Value Date Recorded Sex Assigned at Not on file Legal Sex Male 7:51 PM EST Gender Identity Not on file Sexual Orientation Not on file documented as of this encounter Plan of Treatment Not on file documented as of this encounter Results * US Vascular Outside (No Interpretation) (06/28/2015 2:47 PM EDT) Narrative [facility] - 06/28/2015 2:47 PM EDT This study is for PACS storage only and not for interpretation. us Tatiana Leonard MD CV US VASCULAR Final Result [facility] * US Vascular Outside (No Interpretation) (06/28/2015 2:44 PM EDT) Narrative [facility] - 06/28/2015 2:44 PM EDT This study is for PACS storage only and not for interpretation. us Tatiana Leonard MD CV US VASCULAR Final Result [facility] documented in this encounter Visit Diagnoses Not on filedocumented in this encounter Care Teams Clinical Applications Manager Relationship Specialty Start Date End Date Jessica Berry MD [address] [facility] [place] [address] PCP - General 03/01/15 Dawson Kumar MD [address] [place] [phone] [email or web address] Historical LMR Provider 03/10/15 Iron Cheng MD [address] [place] [address] [email or web address] Historical LMR Provider 03/10/15 documented as of this encounter Additional Source Comments The information contained in this document represents components of the legal health record. It is not the complete legal health record.[facility]
--- OUTSIDE RECORDS SUMMARY | 2025-08-08 08:58 | XMS_ITS | Clinical Summary ---
Author Organization [facility] Address [address] [place] [phone] Phone Care Team Providers Care Lay Out Carpenter Name Role Phone Jessica Berry MD Primary [...] Safety Answer Date Record ed Physical Abuse Unrecognized value 11/21/2024 Verbal Abuse Unrecognized value 11/21/2024 Sex and Gender Information Value Date [...] 65 11/21/2024 2:44 PM EST Temperature 36.3 C (97.3 F) 11/21/2024 2:44 PM EST Respiratory Rate 20 11/21/2024 2:44 PM EST Oxygen Saturation 94% 11/21/2024 2:44 PM EST Inhaled Oxygen Concentration - - Weight 88.9 kg (196 lb) 11/21/2024 10:35 AM EST Height 172.7 cm (5' 8 ) 11/21/2024 10:35 AM EST Body Mass Index 29.8 11/21/2024 10:35 AM EST Plan of Treatment Health Maintenance Due Date Last Done Comments Colorectal Cancer Screening: Colonoscopy 1951 DTaP,Tdap,and Td Vaccines (1 - Tdap) 1970 Pneumococcal Vaccine: 50+ Ye ars (1 of 2 - PCV) 1970 Zoster Vaccines (1 of 2) 2001 Abdominal Aortic Aneurysm (A AA) Screen 10/05/2022 Cholesterol Screening (Lipid Panel) 10/05/2022 Hepatitis C Screening 10/05/2022 Hypertension/CHF/CAD Annual BMP Blood Test 10/05/2022 Medicare Annual Wellness Visit 10/05/2022 Social Influencers of Health Screening 10/05/2022 Depression Screening 10/26/2024 COVID-19 Vaccine (1 - 2023-2 5 season) 2025 Influenza Vaccine (#1) 2025 Falls Risk Assessment 11/21/2025 11/21/2024 RSV [...] this topic Medical Devices Implanted Type Area Information Technology Data Analyst Device Identifier Shelf Expiration Date Model / Serial / Lot Prolaryn Plus Voice Injection 1cc - Sn/A - [id number] Implanted:Qty: 1 on 11/21/2024 by Sharee Carroll MD at [facility] [employer] N/A: Throat [employer] [id number] / N/A / N/A Insurance [place] Advance Directives Documents on File Type Date Recorded Patient Office Messenger Expl anation Health Care Decision (hx) 11/25/2012 AD ZHANG DIRECTIVE Health Care Decision (hx) 11/25/2012 AD ZHANG DIRECTIVE Health Care Decision (hx) 11/25/2012 AD ZHANG DIRECTIVE Health Care Decision (hx) 11/25/2012 AD ZHANG DIRECTIVE Health Care Decision (hx) 11/25/2012 AD ZHANG DIRECTIVE Care Teams Lay Out Carpenter Relationship Specialty Start Date End Date Jessica Berry MD [address] [place] [address] PCP - General Internal Medicine 08/03/12
--- OUTSIDE RECORDS SUMMARY | 2025-08-08 08:58 | XMS_ITS | Encounter Summary ---
Author Organization [employer] Address [address] [facility] 7[address] [place] [address] Care Team Providers Care Orchard Manager Name Role Phone Unavailable Primary Care Provider Unavailabl e Encounter Details Date Type Department Care Team (Latest Contact Info) Description 01/25/2019 Abstract [facility] CONVERSIONS Dental, Provider, DDS Social History Tobacco [...]
[2025-08-08 09:17] VITALS: BP 148/70; PULSE 74; RESP 16; TEMP 36.6; O2SAT 97; BMI 30.3
--- NOTE | 2025-08-08 09:17 | MHC.PC.OV ---
Vital Signs 08/08/25 09:17 08/08/25 09:52 Height 5 ft 8 in Weight 199 lb BMI 30.3 BP 148/70 H 130/70 Blood Pressure Location Lt brachial Lt brachial Position Sitting Sitting Respiration 16 Pulse 74 Pulse Source Pulse Oximeter Temp 97.9 F Temp Source Oral Pulse Oximetry (%) 97 Oxygen Delivery Method Room Air Intake Visit Reasons: Annual PE Intake Note: Pt is here today for his PE: Last colonoscopy 01/08/23 Art Class Model Required: No Allergies amoxicillin Adverse Reaction (Mild, Verified 08/13/25 17:41) diarrhea Medication List - Last Reconciled 08/08/25 by Jessica Berry MD atorvastatin 10 mg PO DAILY finasteride 5 mg PO DAILY 90 days gabapentin 400 mg (1/2 x 800 mg) PO BID 90 days levothyroxine 100 mcg PO DAILY lidocaine 4% 1 appl topical BID venlafaxine ER 150 mg PO DAILY venlafaxine ER 75 mg PO DAILY 90 days verapamil ER 240 mg PO DAILY Tobacco use date assessed: 08/08/25 Fall risk assessment: No Falls in past year Last assessed Fall Risk: 08/08/25 Dental Screening Dental Screen Date: 08/08/25 Did you have a dental visit in the last 12 months?: Yes Did you have a dental problem in the last 6 months where you did not have access to dental care?: Yes Was dental information given to patient?: Patient has dentist HPI Annual PE HPI Details The patient is a 74-year-old male with past medical history significant for hypertrophic obstructive cardiomyopathy status post surgery, hypertension, acquired hypothyroidism, depression, hyperlipidemia, and elevated prostate-specific antigen levels, here today for his physical exam. Hypertension has been a concern, with recent measurements indicating elevated blood pressure, which the patient attributes to stress and frustration. The patient has been monitoring his blood pressure and noted a blood pressure reading was high initially during started this visit , later on returning to normal levels after lying hito rest at least 15 minutes repeat blood pressure coming down to 130/70 mmHg. Denies any chest pain, lightheadedness, shortness of breath or nausea. Recent fasting labs showed an increase in LDL cholesterol from 104 mg/dL to 110 mg/dL since the last visit. Triglycerides have also increased, although the patient reports no significant dietary changes. The patient has a history of elevated prostate-specific antigen levels, with the recent measurement remaining at 4.4 ng/mL, unchanged from the previous test in December. He he is [facility] being [facility] and was prescribed finasteride, which he discontinued taking due to drowsiness. The patient has not yet completed the recommended ultrasound of the prostate and bladder due to scheduling issues. Preventative care measures include receiving the influenza vaccination. Last colonoscopy was done in 2022 with tubular adenoma removed, repeat colonoscopy due again in 2027. He is a cigarette smoker, at least 10 a day, with no desire to quit at present time. [facility] Medical History Elevated prostate specific antigen [PSA] History of adenomatous polyp of colon History of ankle fracture History of fibula fracture Closed right fibular fracture Erectile dysfunction Depression Essential hypertension Dyslipidemia Acquired hypothyroidism Hypertrophic obstructive cardiomyopathy Surgical History (Updated 08/08/25 @ 09:51 by Jessica Berry MD) 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 Son Mental health disorder Daughter No problems noted. Social History Housing: Apartment Alcohol intake: current Patient Tobacco Use Status: Current everyday Tobacco user Tobacco use type: Cigarette Cigarette Packs Per Day: 0 Cigarettes Per Day: 10 e-Cigarette/Vaping Use: Never Used Substance Use Type: Marijuana Current occupational status: retired Cognitive needs: No Hearing needs: No Vision needs: Yes Questionnaire PHQ-9 Over the last 2 weeks, how often have you been bothered by any of the following problems? 1. Little interest or pleasure in doing things: not at all 2. Feeling down, depressed, or hopeless: not at all 3. Trouble falling or staying asleep, or sleeping too much: not at all 4. Feeling tired or having little energy: not at all 5. Poor appetite or overeating: not at all 6. Feeling bad about yourself - or that you are a failure or have let yourself or your family down: not at all 7. Trouble concentrating on things, such as reading the newspaper or watching television: not at all 8. Moving or speaking so slowly that other people could have noticed. Or the opposite - being so fidgety or restless that you have been moving around a lot more than usual: not at all 9. Thoughts that you would be better off or of hurting yourself in some way: not at all Total score: 0 Depression Screening Interpretation: Negative Depression Screening Done: Yes Source: Developed by Drs. Lan Jimenez, Merry Doll, Abdi Serna and colleagues, with an educational andrei from [employer]. Thrive Questionnaire Date Thrive assessed: 01/16/25 I am a: Patient What is your living situation today?: I have a steady place to live Within the past 12 months, did the food you bought not last and you didn't have the money to get more?: I choose not to answer this question Within the past 12 months, did you worry whether your food would run out before you got money to buy more?: I choose not to answer this question Do you have trouble paying for medicines?: I choose not to answer this question Do you have trouble getting transportation to medical appointments?: I choose not to answer this question Do you have trouble paying your heating and electricity bill?: I choose not to answer this question Do you have trouble taking care of your child, family member or friend?: I choose not to answer this question Do you have trouble with day-to-day activities such as bathing, preparing meals, shopping, managing finances, etc.?: I choose not to answer this question Are you currently unemployed and looking for a job?: I choose not to answer this question Are you interested in more education?: I choose not to answer this question Please select the resources that you would like help with: None Currently or been in a relationship where the following occur: I choose not to answer THRIVE Score: 0 AUDIT C Alcohol Use Questionnaire (AUDIT-C) 1. How often do you have a drink containing alcohol?: Never Total Score: 0 GWENDOLYN-7 AMB Questionnaire GWENDOLYN-7 Date GWENDOLYN - 7 assessed: 01/16/25 Feeling nervous, anxious, or on edge: 0 = Not at all Not being able to stop or control worryin = Not at all Worrying too much about different things: 0 = Not at all Trouble relaxin = Not at all Being so restless that it is hard to sit still: 0 = Not at all Becoming easily annoyed or irritable: 0 = Not at all Feeling afraid as if something awful might happen: 0 = Not at all Total GWENDOLYN-7 score (0-4 normal; 5-9 mild; 10-14 moderate; 15-21 severe): 0 Source: Developed by Drs. Lan Jimenez, Merry Doll, Abdi Serna and colleagues, with an educational andrei from [employer]. Review of Systems Const Denies chills and Denies fever(s) ENT Reports Normal hearing present Card Reports no additional complaints Resp Denies cough GI Denies abdominal pain and Denies heartburn Reports as per HPI Musc Reports no additional complaints Skin/Breast Denies rash Neuro Reports no additional complaints and Reports Normal hearing present Psych Reports no additional complaints Endo Reports no additional complaints Orestes/Lymph Reports no additional complaints Aller/Immun Reports no additional complaints Physical exam (Primary Care) Vital Signs: Last Vital Signs Temp 97.9 F 08/08/25 09:17 Pulse 74 08/08/25 09:17 Resp 16 08/08/25 09:17 BP 130/70 08/08/25 09:52 Pulse Ox 97 08/08/25 09:17 Oxygen Delivery Method Room Air 08/08/25 09:17 BMI result Body Mass Index 30.3 Tobacco/Smoking Status: Tobacco use Status Tobacco use date assessed 08/08/25 08/08/25 09:19 Patient Tobacco Use Status Current everyday Tobacco 08/08/25 09:17 Tobacco use type Cigarette 08/08/25 09:17 e-Cigarette/Vaping Use Never Used 08/08/25 09:17 PHQ-9: PHQ-9 Score PHQ-9: Total score 0 08/08/25 09:34 Depression Screening Interpretation: Negative Thrive Assessment: Date of Thrive Assessment Date Thrive assessed 01/16/25 08/08/25 09:17 Currently or been in a relationship where the following occur: I choose not to answer Const General: cooperative and no acute distress Nutritional Appearance: obese Orientation/consciousness: patient oriented x3 HENMT Head: Yes normocephalic Ears: external ears normal and TM's normal bilaterally General nose exam: Normal external nose present Mouth: moist mucous membranes Throat: Yes posterior oropharynx normal Eyes Pupils: Equal, round and reactive pupils present EOM: EOMs intact bilaterally Direct Ophthalmoscopy: normal light reflex Neck Neck: Yes full ROM and Yes no lymphadenopathy Thyroid: Thyroid normal (non-Palpable) Chest Chest palpation & inspection: normal inspection of the chest Resp Effort & Inspection: normal respiratory effort and able to speak in complete sentences Auscultation: clear to auscultation bilaterally and no wheezes Cardio Heart sounds: S1 normal heart sound present and S2 normal heart sound present GI Inspection: Yes Abdominal panniculus present and Yes obesity Palpation (GI): Soft to palpation, nontender, no guarding and No hepatosplenomegaly present Percussion: Yes normal to percussion Auscultation: normal bowel sounds General: Yes no CVA tenderness Male General Exam: Yes normal external exam Back/Spine/Pelvis Back: no CVA tenderness and No back tenderness Skin General skin exam: no rashes or lesions noted Neuro General: patient oriented x3, gait normal and moves all extremities Cranial nerves: Yes Equal, round and reactive pupils present and Yes Normal hearing present Motor exam (neuro): 5/5 motor strength present throughout Extrem General: Yes full ROM and Yes capillary refill normal Psych Speech and movement: Normal speech and movement present Results Reviewed Results Reviewed: Name: Teddy Sanchez Age/Sex: 74/M : 1950 Unit#: [id number] Attend Dr: Jessica Berry MD Re08/03/25 Status: DEP REF Location: [facility] Disch: SPEC : [id number] STEPHANIE: 08/03/25 STATUS: COMP REQ : [id number] RECD: 08/03/[address]: Jessica Berry MD COMP: 08/03/25 ENTERED: 08/03/[address]: ORDERED: Met Prof Fast, AST, ALT, Lipid Panel, Vitamin D 25-OH, Free T4, TSH Test Result Flag Reference Sodium 139 135-145 mmol/L Potassium 4.1 3.3-5.1 mmol/L CL 107 96-108 mmol/L CO2 27 22-29 mmol/L Gap 9 L 12-20 BUN 10 9-16 mg/dL Creat 0.87 0.5-1.4 mg/dL eGFR > 60 Chronic Kidney Disease: Estimated GFR < 60 mL/min/1.73m2 Severe Kidney Disease: Estimated GFR < 15 mL/min/1.73m2 FBS 94 60-99 mg/dL CA 9.1 8.4-10.2 mg/dL AST (GOT) 34 5-37 U/L ALT (GPT) 19 0-40 U/L Triglyceride 177 H <150 mg/dL Desirable Triglyceride: less than 150 mg/dL Borderline High Triglyceride 150-199 mg/dL High Triglyceride: 200-499 mg/dL Very High Triglyceride: greater than or equal to 5OO mg/dL Cholesterol 179 <200 mg/dL Desirable Cholesterol: less than 200 mg/dL Borderline High Cholesterol: 200-239 mg/dL High Cholesterol: greater than 239 mg/dL LDL Calculated 110 H <100 mg/dL Desirable LDL: less than 100 mg/dL Near Optimal/Above Optimal LDL: 110-129 mg/dL Borderline High LDL: 130-159 mg/dL High LDL: 160-189 mg/dL Very High LDL: greater than or equal to 190 mg/dL HDL 34 L >40 mg/dL Desirable HDL: greater than 40 mg/dL Note: This HDL assay may give artificially low results in patients with liver disease. Vitamin D 25-OH 55.8 >30 ng/mL Health Based Reference Values* < 20 ng/mL Deficient 20-30 ng/mL Insufficient > 30 ng/mL Sufficient *Belinda DOMINGUEZ. N Engl J Med. 2007;357:266-280 There is no well-established upper level of normal vitamin D levels. Some laboratories use 50 ng/mL as an upper limit of normal. However, toxicity is patient-dependent and may occur at any level. Careful correlation with the patient's presentation is necessary and, if there is concern for vitamin D toxicity, treatment should be considered irrespective of the serum level. Care must be taken in interpreting Vitamin D results from different laboratories and methodologies. Published data demonstrated that results from patients undergoing hemodialysis may show a negative bias when tested with various automated 25-OH vitamin D assays when compared to LC-MS/MS. When testing samples from patients whose predominant form of Vitamin D is Vitamin D2, such as patients receiving Vitamin D2 supplementation, results that are subtherapeutic should be confirmed with another method such as LC-MS/MS. Free T4 0.99 0.71-1.85 ng/dL TSH 3rd Gen. 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 - Encounter for general adult medical examination with abnormal findings Plan: Fasting lab results discussed with patient. Up-to-date with all his vaccinations,: Colonoscopy procedure to be repeated again in 2027 (2) Acquired hypothyroidism: Code(s): E03.9 - Hypothyroidism, unspecified Category: Medical Plan: Continue levothyroxine 100 mcg daily (3) Dyslipidemia: Code(s): E78.5 - Hyperlipidemia, unspecified Category: Medical Plan: Reviewed recent fasting lipid profile with patient with elevated triglycerides . Continue atorvastatin 10 mg daily , in addition to adherence to low-cholesterol diet and regular exercise, at least 30 minutes 3 to 4 times a week. Advised patient to make healthy food choices, eat more fruits, vegetables, whole grains, wild caught fish and low-fat dairy. Limit amount of meat and fried or fatty food products, as well as processed foods and fast foods. Follow-up scheduled with repeat fasting lipid panel in 6 months. (4) Essential hypertension: Code(s): I10 - Essential (primary) hypertension Category: Medical Plan: Continue with rather ER 240 mg daily, stressed importance of adhering to a low-salt diet and getting regular exercise. Has importance of stopping smoking, patient however not ready to quit at present time (5) Depression: Code(s): F32.9 - Major depressive disorder, single episode, unspecified Category: Medical Qualifiers: Active/Remission status: in full remission Depression Type: major depressive disorder Major depression recurrence: recurrent Qualified Code(s): F33.42 - Major depressive disorder, recurrent, in full remission Plan: Controlled on venlafaxine ER continue on current dose of 225 mg daily (6) History of adenomatous polyp of colon: Code(s): Z86.010 - Personal history of colon polyps Category: Medical Plan: Repeat colonoscopy due again in 2027 (7) Oropharyngeal mass: Code(s): J39.2 - Other diseases of pharynx Category: Surgical Plan: Had biopsy altogether of the base of the tongue done by ENT which showed benign findings. No longer has been encouraged to quit smoking and to follow-up with Dr Booker in 6 months (8) Elevated prostate specific antigen [PSA]: Code(s): R97.20 - Elevated prostate specific antigen [PSA] Category: Medical Plan: Patient has stopped taking finasteride prescribed by Dr. Lomas, advised inform him of side effects of the medication and follow-up with him accordingly. Orders: Orders Lipid Panel 6 Months E03.9 - Hypothyroidism, unspecified, E78.5 - Hyperlipidemia, unspecified, F33.42 - Major depressive disorder, recurrent, in full remission, I10 - Essential (primary) hypertension Thyroid Stimulating Hormone 6 Months E03.9 - Hypothyroidism, unspecified, E78.5 - Hyperlipidemia, unspecified, F33.42 - Major depressive disorder, recurrent, in full remission, I10 - Essential (primary) hypertension Free T4 (Free Thyroxine) 6 Months E03.9 - Hypothyroidism, unspecified, E78.5 - Hyperlipidemia, unspecified, F33.42 - Major depressive disorder, recurrent, in full remission, I10 - Essential (primary) hypertension Basic Metabolic Panel Fasting 6 Months E03.9 - Hypothyroidism, unspecified, E78.5 - Hyperlipidemia, unspecified, F33.42 - Major depressive disorder, recurrent, in full remission, I10 - Essential (primary) hypertension Aspartate Amino Transferase 6 Months E03.9 - Hypothyroidism, unspecified, E78.5 - Hyperlipidemia, unspecified, F33.42 - Major depressive disorder, recurrent, in full remission, I10 - Essential (primary) hypertension Alanine Aminotransferase 6 Months E03.9 - Hypothyroidism, unspecified, E78.5 - Hyperlipidemia, unspecified, F33.42 - Major depressive disorder, recurrent, in full remission, I10 - Essential (primary) hypertension Vitamin D 25-OH Total 6 Months E03.9 - Hypothyroidism, unspecified, E78.5 - Hyperlipidemia, unspecified, F33.42 - Major depressive disorder, recurrent, in full remission, I10 - Essential (primary) hypertension
[2025-08-08 09:52] VITALS: BP 130/70
== END 2025-08-08 09:51 | disposition home or self-care (01) ==
LOC: HO.HMCC 08:37
PROVIDERS: PCP Internal Medicine; Visit Provider Internal Medicine
DX: Z00.01 Encounter for general adult medical examination with abnormal findings (principal); E03.9 Hypothyroidism, unspecified; E78.5 Hyperlipidemia, unspecified; I10 Essential (primary) hypertension; F33.42 Major depressive disorder, recurrent, in full remission; Z86.0100 Personal history of colon polyps, unspecified; J39.2 Other diseases of pharynx; R97.20 Elevated prostate specific antigen [PSA]

== ENCOUNTER → 2025-08-08 08:36 | Outpatient (BNVA) | payer MEDICARE, MEDICAID, SELFPAY | PROVIDERS: PCP Internal Medicine; Visit Provider Internal Medicine | DX: Z00.01 Encounter for general adult medical examination with abnormal findings (principal); I10 Essential (primary) hypertension; R97.20 Elevated prostate specific antigen [PSA]; E03.9 Hypothyroidism, unspecified; E78.5 Hyperlipidemia, unspecified; F33.42 Major depressive disorder, recurrent, in full remission; J39.2 Other diseases of pharynx; F17.210 Nicotine dependence, cigarettes, uncomplicated; Z86.0109 Personal history of other colon polyps | CPT/HCPCS: 96127; 99397 ==

== ENCOUNTER 2025-10-04 07:33 | Outpatient (REF) | payer MEDICARE, MEDICAID, SELFPAY ==
--- NOTE | ~2025-10-04 | US_ITS ---
EXAMINATION: US PELVIS LIMITED (BLADDER) CLINICAL INFORMATION: BPH.. COMPARISON: None available. TECHNIQUE: Real-time imaging of the bladder. FINDINGS: BLADDER: Fluid-filled without wall thickening. Unable to detect the ureteral jets Prevoid bladder volume is 423 mL. Postvoid bladder volume is 36 mL. Prostate gland measures 5 x 4 x 5 cm, volume: 52 cc. US/US bladder IMPRESSION: 36 cc retained urine in a post void image. Prostate gland volume: 52 cc.. Electronically signed by: Cresencio Ray MD 10/04/2025 11:25 AM EST
--- OUTSIDE RECORDS SUMMARY | 2025-10-04 07:47 | XMS_ITS | Clinical Summary ---
Author Organization [facility] Address [address] [place] [phone] Phone Care Team Providers Care Rubbish Collector Name Role Phone Jessica Berry MD Primary Care Provider Dawson Kumar MD Unavailable Iron Cheng MD Unavailable Allergies Active Allergy Reactions Criticality Noted Date [...] Formulation 11/08(Deferred: Other - , Ordered By: [id number]),12/01/2012(Deferred: Other) Pneumococcal, Unspecified Formulation (Deferred: Other - , Ordered By: [id number]) Social History Tobacco Use Types Packs/Day Years [...] Medical Devices Not on file Care Teams Rubbish Collector Relationship Specialty Start Date End Date Jessica Berry MD [address] [address] PCP - General 03/01/15 Dawson Kumar MD [address] [place] [phone] [email or web address] Historical LMR Provider 03/10/15 Iron Cheng MD [address] [place] [id number] [email or web address] Historical LMR Provider 03/10/15 Additional Source Comments The information contained in this document represents components of the legal health record. It is not the complete legal health record.[facility]
--- OUTSIDE RECORDS SUMMARY | 2025-10-04 07:48 | XMS_ITS | Clinical Summary ---
Author Organization [employer] Address [address] [place] [address] Care Team Providers Care Creative Consultant Name Role Phone Unavailable Primary Care Provider [...] of 2) 2001 COVID-19 Vaccine ( - 2024-2 6 season) 2025 Influenza Vaccine (#1) 2025 RSV [...]
--- OUTSIDE RECORDS SUMMARY | 2025-10-04 07:48 | XMS_ITS | Encounter Summary ---
Author Organization [facility] Address [address] [place] [phone] Phone Care Team Providers Care Reversal Print Inspector Name Role Phone Jessica Berry MD Primary Care Provider Dawson Kumar MD Unavailable Iron Cheng MD Unavailable [phone] Encounter Details Date Type Department Care Team (Late st Contact Info) Description 06/28/2015 Transcribe Orders [facility] [address] [place], [place] [id number] Ameena Lozano [address] [place] [phone] [email or web address] Social History Tobacco Use Types Packs/Day Years [...] (No Interpretation) (06/28/2015 2:47 PM EDT) Narrative [facility] - 06/28/2015 2:47 PM EDT This study is for PACS storage only and not for interpretation. us Tatiana Leonard MD CV US VASCULAR Final Result [facility] * US Vascular Outside (No Interpretation) (06/28/2015 2:44 PM EDT) Narrative [facility] - 06/28/2015 2:44 PM EDT This study is for PACS storage only and not for interpretation. us Tatiana Leonard MD CV US VASCULAR Final Result [facility] documented in this encounter Visit Diagnoses Not on filedocumented in this encounter Care Teams Reversal Print Inspector Relationship Specialty Start Date End Date Jessica Berry MD [address] [place] [address] PCP - General 03/01/15 Dawson Kumar MD [address] [place] [phone] [email or web address] Historical LMR Provider 03/10/15 Iron Cheng MD [address] [place] [address] [email or web address] Historical LMR Provider 03/10/15 documented as of this encounter Additional Source Comments The information contained in this document represents components of the legal health record. It is not the complete legal health record.[facility]
--- OUTSIDE RECORDS SUMMARY | 2025-10-04 07:48 | XMS_ITS | Data Portability ---
Author Organization [place] - [facility], Allergy Address [address] [place] [address] Care Team Providers Care Fiscal Analyst Name Role Phone LUTHER MAXWELL Primary Care Provider [phone] Assessment Encounter Date Assessment Date Assessment LastModified [...] Modified Time Details Appointments Establish ed 15 2025 09:30A M HUGO SUGGS MD Not available Not [...] Origi nal Order ing Provi shaheed: MICHAELLE Carlson TERELLEK LEÓN [facility] - [address], [place] [address] Not Available [facility] [address] [facility], [place], [address], 11/24/2024 13:47:02 11/21/19 25 11/21/2024 TISSU E EXAM final diagnosis A. Base [...] (loly lar to CD3). CD10: Few aggre reyse of lymph ocyte s immun oreac tive. [...] lled lingu al tonsi l. - Immun ohist [...] in the epith elium . Elect tony thakur d by Leo Sam MD on 2024 at 1:43 PM Not Available [address], [address], 11/24/2024 13:47:02 11/21/19 25 11/21/2024 TISSU E EXAM clinical information Signif icant smokin g histor y, Right base of tongue PET avid mass. Not Available [address], [address], 11/24/2024 13:47:02 11/21/19 25 11/21/2024 TISSU E EXAM gross description A. Tongue , Right Latera l Base Of Tongue : Label ed righ t lat tongu e . Recei stfeano in forma terence with a Telfa pad [...] ximat nithya 0.3 cm in great est [facility], which are wrapp ed in paper and submi tted in toto in one casse tte, two piece s, multi ple level s on one slide . D. Jerzyu e, Right Later al Base Of Tongu [...] on one slide . CARLOS Not Available [address], [address], 11/24/2024 13:47:02 11/21/19 25 11/21/2024 TISSU E EXAM disclaimer NOTE: The immun ohist ochem ical tests and in situ hybri dizat ion tests were devel oped and their perfo rmanc e irais cteri stics were deter mined by [facility] . They have not been clear ed or appro stefano by the U.S. Food and Drug Admin istra tion. The FDA has deter mined that such clear ance or appro ajay is not neces staci. These tests are used for clini lorraine purpo ses. They shoul d not be regar ded as inves tigat ional or for resea [facility]. This labor atory is certi fied under the Clini lorraine Labor atory Impro vemen t Amend ments of 1987 (CLIA ) as quali fied to perfo rm high compl exity clini lorraine labor atory testi ng. (cont rols appro priat e) Unles s other oneill speci fied, all tissu e is 10% NB forma terence fixed and paraf fin embed ded. Not Available [address], [address], 11/24/2024 13:47:02 01/28/20 25 01/28/2025 BUN BUN 10 mg/dL 8-27 normal Not Available [facility] [address] [facility], [place], [address], 01/30/2025 13:01:56 01/28/20 25 01/28/2025 CREAT ININE creatinine 0.89 mg/dL 0.76-1 .27 normal Not Available [facility] ([facility]) [address] [facility], [place], [address], 01/30/2025 13:01:57 01/28/20 25 01/28/2025 CREAT ININE eGFR 90 mL/mi n/1.7 3 >59 normal Not Available [facility] ([facility]) [address] [place], [address], 01/30/2025 13:01:57 11/21/19 25 11/21/2024 H&P No observ ation record ed. [address], [address], 11/23/2024 09:02:03 11/21/19 25 11/21/2024 brief op note No observ ation record ed. [address], [address], 11/23/2024 09:02:03 11/21/19 25 11/21/2024 op note No observ ation record ed. [facility] [address] [facility], [place], [address], 11/23/2024 09:02:03 12/19/19 25 11/21/2024 clini lorraine photo * No observ ation record ed. Not Available 11/27 10:20:25 02/25/20 25 02/01/2025 CT, neck, soft tissu e, w/ contr ast No observ ation record ed. [facility] [place] [address], [place], [address], 03/01/2025 09:51:50 08/15/20 25 10/11/2024 CT, neck, soft tissu e, w/ contr ast No observ ation record ed. [email or web address] [place] [address] (Imaging) [address] [place] [address], [address], 08/15/2025 14:31:51 Result Notes None recorded. Problems Name Problem SNOMED Code Status Onset Date Resolution Date Notes Provider Name and Address Organization Details Recorded Time Mass of head and/or neck 750092143 Active 2024 PRIYANKA DONNELLY MD [address] [place] [address], [place], [address], [facility] - [facility] 13:34:45 Mass of tongue 667548221 Active 2024 PRIYANKA DONNELLY MD [address] [facility] [address] [facility], [place], [address], [place] - [facility] 13:34:55 Continuous dependence on cigarette smoking 0715048460959 08 Active 2024 PRIYANKA DONNELLY MD [address] [facility], [place], [address], [place] [facility] 15:12:50 Lung mass 612287427 Active 2024 PRIYANKA DONNELLY MD [address] [facility] [address], [place], [address], [facility] 15:12:53 Problem Notes None recorded. Procedures Surgical History Date Name Laterality Status Provider Name and Address Organization Details Recorded Time 06/05/20 25 Fiberoptic Laryngoscopy (Comprehensive) completed HUGO SUGGS MD [address] [facility],[address], [address], [facility] 06/05/2025 09:09:21 02/25/20 25 Fiberoptic Laryngoscopy (Comprehensive) completed HUGO SUGGS MD [address] [facility],[address], [address], [facility] 03/01/2025 09:35:14 11/21/19 25 direct laryngoscopy with biopsy completed HUGO SUGGS MD [address] [facility],[address], [address], [facility] 11/21/2024 15:22:09 11/08/19 25 Fiberoptic Laryngoscopy (Comprehensive) completed PRIYANKA DONNELLY MD [address] [facility],[address], [address], [facility] 11/08/2024 15:10:10 Imaging Results None recorded. Procedure Notes None recorded. Medical Equipment None Reported. Allergies No known drug allergies Medications Name Sig Start Date Stop Date Status Note LastModified by Organization Details LastModified Time venlafaxine ER 75 mg capsule,ext ended release 24 hr TAKE 1 CAPSULE DAILY 06/05 completed Not Available Not Available Not Available atorvastati n 10 mg tablet TAKE [...] completed Not Available Not Available Not Available finasteride 5 mg tablet TAKE 1 TABLET DAILY active Not Available Not Available No t Available Vitals Date Recorded Body height Body weight Provider Name and Address Organization Details Last Updated DateTime 11/08/2024 172.72 cm 83057.74 g Elvira Saldivar [place] - [facility] 11/08/2024 12:59:57 Date Recorded Body height Body mass index (BMI) Body weight Provider Name and Address Organization Details Last Updated DateTime 02/24/2025 168.91 cm 31.5 kg/m2 45728.29 g Jesusita Patterson [facility] 02/24/2025 08:53:12 Date Recorded Body height Body mass index (BMI) Body weight Provider Name and Address Organization Details Last Updated DateTime 06/05/2025 168.91 cm 32.6 kg/m2 20187.44 g Jesusita Patterson [facility] 06/05/2025 08:58:23 Social History None recorded. Functional Status None recorded. Mental Status None recorded. Family History Nothing Reported. Medical History Condition Response Allergies/Hayfever N Heart Problems Y Anxiety Y Tonsil Infections N Emphysema N Migraines N Thyroid Problems Y COPD N Depression Y Developmental Delay N Glaucoma N Nasal or Sinus Problems N Anemia N Immune System Disorder N Anesthesia Complications N Heart Attack (CA) N Other Skin Condition N Diabetes N [...] Diagnosis SNOMED-CT Code Diagnosis ICD10 Code Diagnosis IMO Codes Diagnosis Note [id number] PRIYANKA DONNELLY MD [facility] [address] [address] 11/08/2024 12:34:11 11/08/2024 15:57:41 Mass of tongue 593643512 R22.0 Continuous dependence on cigarette smoking 3018330701 62495 F17.210 Lung mass 830421953 R91. 8 [id number] HUGO SUGGS MD [facility] [address] [address] 02/24/2025 08:35:48 02/24/2025 09:24:55 Mass of tongue 658611334 R22.0 74-year-ol d male, smoker, initially presented [...] he develop any dysphagia, otalgia, sore throat. [id number] HUGO SUGGS MD [facility] [address] [place] [address] 06/05/2025 08:53:11 06/05/2025 09:15:16 Mass of tongue 224927808 R22.0 74-year-ol d male, smoker, initially presented with incidental base of tongue hyperactiv ity on PET scan performed to evaluate a lung nodule. He went to the operating room and biopsy in the affected area did not show any neoplasm but some prominent lymphoid infiltrate including occasional reactive follicles. Most recent CT in January no definite mass but concern for an infiltrati ve lesion.He remains asymptomat ic and on repeat flexible laryngosco py today, there is no ulcerative or friable lesion.We discussed that his physical exam, lack of any symptoms, and biopsy results are all reassuring , but I would want to continue close monitoring giving imaging findings especially given his tobacco history. I did recommend repeat physical exam in about 6 months, with sooner appointmen t should he develop any dysphagia, otalgia, sore throat. I encouraged him in his efforts to quit/ cut back on smoking. Finding of tobacco use and exposure [id number] Z72.0 [id number] Health Concerns Section Related Observation LastModified by Organization Detai ls LastModified Time None Recorded Concern Status LastModified by Organization Details LastModified Time None Recorded Advance Directives Directive None Recorded Payers Insurance Date Sequence Insurance Name Policy Number Policy Bruner Covered Member ID Bruner Member ID Guarantor Name 02/24/2025 1 [place]MEDICARE [place]ACEMENT PPO) [id number] Teddy F Daniel [id number] Teddy F Daniel 06/05/2025 1 [place]MED[place] HMO) [id number] Teddy F Daniel [id number] Teddy F Daniel Notes Date Note Type Note Provider Name and Address Organization Details Recorded Time 11/08/2024 text/html ROS as noted in the HPI 73yo gentleman who presents today for [...] extending to the midline. PRIYANKA DONNELLY MD [address] [place] [address], [address], [place] - [facility] 11/08/2024 15:13:12 02/24/2025 text/html No sore throat, dysphagia, otalgia. CT scan showing concern for infiltrative lesion. HUGO SUGGS MD [address] [place] [address],[address], [address], [place] - [facility] 03/01/2025 09:39:19 06/05/2025 text/html Since last visit, no sore throat, dysphagia, otalgia. Smoking less than 1 pack every 2 days. HUGO SUGGS MD [address] [place] [address],[address], [address], [place] [facility] 06/05/2025 09:52:56
--- OUTSIDE RECORDS SUMMARY | 2025-10-04 07:49 | XMS_ITS | Encounter Summary ---
Author Organization [email or web address] Address [address] [facility] 7[address] [place] [address] Care Team Providers Care Child Care Associate Name Role Phone Unavailable Primary Care Provider Unavailabl e Encounter Details Date Type Department Care Team (Latest Contact Info) Description 01/25/2019 Abstract [facility] CONVERSIONS Dental, Provider, DDS Social History [...]
--- OUTSIDE RECORDS SUMMARY | 2025-10-04 07:49 | XMS_ITS | Clinical Summary ---
Author Organization [facility] Address [address] [place] [address] Phone Care Team Providers Care Spark Plug Assembler Name Role Phone Jessica Berry MD Primary [...] Orientation Straight 11/18/2024 11 :10 AM EST Last Filed Vital Signs Vital Sign Reading [...] Depression Screening 10/26/2024 COVID-19 Vaccine (1 - 2024-2 6 season) 2025 Influenza Vaccine (#1) 2025 Falls [...] this topic Medical Devices Implanted Type Area Mushroom Grower Device Identifier Shelf Expiration Date Model / Serial / Lot Prolaryn Plus Voice Injection 1cc - Sn/A - [id number] Implanted:Qty: 1 on 11/21/2024 by Sharee Carroll MD at [facility] [employer] N/A: Throat [employer] [id number] / N/A / N/A Insurance [place] - [place] Advance Directives Documents on File Type Date Recorded Patient Bait Digger Expl anation Health Care Decision (hx) 11/25/2012 AD ZHANG DIRECTIVE Health Care Decision (hx) 11/25/2012 AD ZHANG DIRECTIVE Health Care Decision (hx) 11/25/2012 AD ZHANG DIRECTIVE Health Care Decision (hx) 11/25/2012 AD ZHANG DIRECTIVE Health Care Decision (hx) 11/25/2012 AD ZHANG DIRECTIVE Care Teams Spark Plug Assembler Relationship Specialty Start Date End Date Jessica Berry MD [address] [place] [address] PCP - General Internal Medicine 08/03/12
[2025-10-04 10:53] LABS: PSA,Total (Free>4and<10) 3.00 ng/mL (0.00-4.00)
== END 2025-10-04 07:34 | disposition home or self-care (01) ==
LOC: HO.HMGCX 07:33
PROVIDERS: PCP Internal Medicine; Visit Provider Urology
DX: R97.20 Elevated prostate specific antigen [PSA] (principal); Z12.5 Encounter for screening for malignant neoplasm of prostate
CPT/HCPCS: 36415; 76857; 84153

== ENCOUNTER → 2025-10-04 11:04 | Outpatient (BNV) | payer MEDICARE, MEDICAID, SELFPAY | PROVIDERS: PCP Internal Medicine; Visit Provider Radiology Diagnostic Radiology | DX: N40.1 Benign prostatic hyperplasia with lower urinary tract symptoms (principal); R33.9 Retention of urine, unspecified | CPT/HCPCS: 76857 ==

== ENCOUNTER 2025-10-12 08:44 | Outpatient (AMB) | payer MEDICARE, MEDICAID, SELFPAY ==
--- NOTE | 2025-10-12 09:11 | A.OFFVIS_ITS ---
Intake Visit Reasons: 6M follow up/ PSA/SET NO UA Intake Note: Reason for Visit: 6M PSA Follow Up Urology Meds: Finasteride Blood Thinners: None Labs: PSA- 3.00 (10/04/2025) Imaging: None Last PVR: None Lab Pack Chemist Required: No Allergies amoxicillin Adverse Reaction (Mild, Verified 08/13/25 17:41) diarrhea HPI Comments Details: Wisam is a pleasant male. He is a patient of Dr. Berry. He is seen for the following urologic conditions - elevated PSA - lower urinary tract symptoms Good response to finasteride Continue Following 12 month Improved urination Getting up less at night Elevated PSA PSA 01/17 4.4 16%, 08/19 3.0 Minimal urinary symptoms adequate stream strength, effective emptying No family history of prostate issues MARGARET 1+ soft nodule right side Current therapy finasteride 12 month follow-up remain on finasteride [facility], [facility] Medical History (Updated 10/12/25 @ 09:18 by Jonatan Lomas MD) Elevated prostate specific antigen [PSA] History of adenomatous polyp of colon History of ankle fracture History of fibula fracture Closed right fibular fracture Erectile dysfunction Depression Essential hypertension Dyslipidemia Acquired hypothyroidism Hypertrophic obstructive cardiomyopathy Surgical History (Updated 08/08/25 @ 09:51 by Jessica Berry MD) 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 Son Mental health disorder Daughter No problems noted. Social History Housing: Apartment Alcohol intake: current Patient Tobacco Use Status: Current everyday Tobacco user Tobacco use type: Cigarette Cigarette Packs Per Day: 0 Cigarettes Per Day: 10 e-Cigarette/Vaping Use: Never Used Substance Use Type: Marijuana Current occupational status: retired Cognitive needs: No Hearing needs: No Vision needs: Yes Review of Systems Const Denies chills and Denies fever(s) Card Reports no additional complaints and Denies syncope Resp Denies cough GI Denies abdominal pain and Denies heartburn Reports as per HPI and Denies change in libido Neuro Denies syncope Psych Denies change in libido Endo Denies change in libido Physical Exam Const General: cooperative, healthy appearing, comfortable and no acute distress Orientation/consciousness: patient oriented x3 HEENT Face and sinus: Yes normal facial exam Mouth: moist mucous membranes Neck Neck: Yes normal visual inspection, Yes full ROM and Yes trachea midline Chest Chest palpation & inspection: normal inspection of the chest Resp Effort & Inspection: normal respiratory effort, able to speak in complete sentences and no respiratory distress GI Inspection: Yes normal to inspection Back/Spine/Pelvis Cervical Spine: normal cervical lordosis Thoracic/Lumbar Spine: thoracic and lumbar spine normal to inspection Skin General skin exam: no rashes or lesions noted Neuro General: patient oriented x3, gait normal, tone normal and moves all extremities Extrem General: Yes normal to inspection and Yes capillary refill normal Assessment & Plan Assessment & Plan (1) BPH w urinary obs/LUTS: Code(s): N40.1 - Benign prostatic hyperplasia with lower urinary tract symptoms; N13.8 - Other obstructive and reflux uropathy Category: Medical (2) Elevated prostate specific antigen [PSA]: Code(s): R97.20 - Elevated prostate specific antigen [PSA] Category: Medical Plan Twelve month follow-up PSA office Orders: Orders Prostate Specific Antigen 12 Months R97.20 - Elevated prostate specific antigen [PSA] Medications: Refilled finasteride 5 mg PO DAILY 90 tabs 3RF 90 days R97.20 - Elevated prostate specific antigen [PSA] Patient Instructions: This note is constructed using voice recognition software. While every effort has been made to ensure accuracy patient service coordinator errors may have been included. Imaging studies, laboratory and physical exam results were discussed and reviewed in detail. No major barriers to patient understanding were identified. An opportunity to ask questions regarding the treatment plan was provided. All questions were answered. The patient expressed understanding and agreement with the above treatment plan. The patient is aware they should contact our office by phone for worsening of their current condition or the appearance of new urologic symptoms. Compliance is encouraged with any medications and followup testing that is ordered. It is a privilege to participate in the urologic care of your patient. If you have any questions or concerns regarding treatment for the above conditions, or other urologic issues, please do not hesitate to contact me. The office telephone contact is [phone]. Sincerely, Dr Jonatan Lomas MD, [facility] - Urology Compassionate Specialist Care for the Genitourinary System Coding Level of Care Code Est Pt Level 3 (21710) Diagnoses BPH w urinary obs/LUTS N40.1; N13.8 Elevated prostate specific antigen [PSA] R97.20
--- OUTSIDE RECORDS SUMMARY | 2025-10-12 09:23 | XMS_ITS | Encounter Summary ---
Author Organization [employer] Address [address] [facility] [address] [place] [address] Care Team Providers Care Lead Java Developer Architect Name Role Phone Unavailable Primary Care Provider Unavailabl e Encounter Details Date Type Department Care Team (Latest Contact Info) Description 01/25/2019 Abstract [facility] CONVERSIONS Dental, Provider, DDS Social [...]
--- OUTSIDE RECORDS SUMMARY | 2025-10-12 09:23 | XMS_ITS | Clinical Summary ---
Author Organization [facility] Address [address] [place] [phone] Phone Care Team Providers Care Materials Scheduler Name Role Phone Jessica Berry MD Primary [...] this topic Medical Devices Implanted Type Area Sde Device Identifier Shelf Expiration Date Model / Serial / Lot Prolaryn Plus Voice Injection 1cc - Sn/A - [id number] Implanted:Qty: 1 on 11/21/2024 by Sharee Carroll MD at [facility] [employer] N/A: Throat [employer] [id number] / N/A / N/A Insurance [place] Advance Directives Documents on File Type Date Recorded Patient Director Safety Expl anation Health Care Decision (hx) 11/25/2012 AD ZHANG DIRECTIVE Health Care Decision (hx) 11/25/2012 AD ZHANG DIRECTIVE Health Care Decision (hx) 11/25/2012 AD ZHANG DIRECTIVE Health Care Decision (hx) 11/25/2012 AD ZHANG DIRECTIVE Health Care Decision (hx) 11/25/2012 AD ZHANG DIRECTIVE Care Teams Materials Scheduler Relationship Specialty Start Date End Date Jessica Berry MD [address] [place] [address] PCP - General Internal Medicine 08/03/12
--- OUTSIDE RECORDS SUMMARY | 2025-10-12 09:23 | XMS_ITS | Clinical Summary ---
Author Organization [employer] Address [address] [facility] 7t [place] [address] Care Team Providers Care Scuba Diver Name Role Phone Unavailable Primary Care Provider [...]
== END 2025-10-12 14:07 | disposition home or self-care (01) ==
LOC: HO.HUSH 08:45
PROVIDERS: PCP Internal Medicine; Visit Provider Urology
DX: N40.1 Benign prostatic hyperplasia with lower urinary tract symptoms (principal); N13.8 Other obstructive and reflux uropathy; R97.20 Elevated prostate specific antigen [PSA]
CPT/HCPCS: 99213

== ENCOUNTER → 2025-10-12 08:44 | Outpatient (BNVA) | payer MEDICARE, MEDICAID, SELFPAY | PROVIDERS: PCP Internal Medicine; Visit Provider Urology | DX: N40.1 Benign prostatic hyperplasia with lower urinary tract symptoms (principal); N13.8 Other obstructive and reflux uropathy; R97.20 Elevated prostate specific antigen [PSA] | CPT/HCPCS: 99212 ==

== ENCOUNTER 2025-10-18 07:39 | Outpatient (AMB) | payer MEDICARE, MEDICAID, SELFPAY ==
--- NOTE | 2025-10-18 07:42 | AM.OFFWIN_ITS ---
Intake Vital Signs 10/18/25 07:43 Height 5 ft 8 in Weight 198 lb BMI 30.1 BP 138/62 Blood Pressure Location Rt brachial Position Sitting Pulse 61 Pulse Source Pulse Oximeter Pulse Oximetry (%) 95 Oxygen Delivery Method Room Air Intake Visit Reasons: EP-body weakness, light headaches Intake Note: Patient presents c/o chills, falls-4 times, weakness since Thursday. Patient Tobacco Use Status: Current everyday Tobacco user Allergies amoxicillin Adverse Reaction (Mild, Verified 10/18/25 07:46) diarrhea HPI HPI Comments History of Present Illness Details History of Present Illness - The patient is a 74 year old male pres enting with new-onset instability, multiple falls, and viral symptoms. - His symptoms started on Thursday afterno on with shivers and feeling cold, and he subsequently developed significant nasal congestion with rhinorrhea. - He also experienced a foggy mental s mitchell but felt more clear-minded this morning. - Over the past day, he became unstable on his feet and fell four times in his apartment. - He describes these events as his body leaning forward and his feet being unable to catch up, leading to a fall. - He denies chest pain, significant coug h, diarrhea, vomiting, vision changes, or headache. - Past medical history is significant fo r peripheral neuropathy, though he is usually stable with ambulation, and viral pneumonia in 2012. - He reports flushing his ears with hydr ogen peroxide yesterday, but this was after two of the falls had already occurred. - He has been able to eat and drink flui ds. - He has no sick contacts. - He denies fever, cough, or sore throat . - He has no FREIRE or visual changes. Physical Exam General: Cooperative, healthy appearing, comfortable, no acute distress and well developed Orientation: Patient oriented x3 Limitations: No limitations Head: Normal to inspection Ears: Hearing grossly normal bilaterally. Cerumen impaction on the right. TM not visualized on the right. Nose: Normal external nose present. Face and sinus: Normal facial exam Eyes: Appearance normal, both eyes and all related structures. PERRLA, EOMI. No nystagmus noted. Neck: Normal visual inspection and Yes full ROM Respiratory: Normal respiratory effort and able to speak in complete sentences. Clear to auscultation bilaterally. No w/r/r noted. Cardiovascular: Regular rate and rhythm. Normal S1 and S2. No m/r/g noted. GI: Normal to inspection. Soft to palpation and nontender. No guarding noted. No rebound tenderness noted. Skin: No rashes or lesions noted Neuro: Patient oriented x3. CN II-XII intact. Extremities: Normal to inspection. FROM of the UE and LE bilaterally. Ambulates with steady gait. Patient was informed and verbally consented to the use of an ambient scribe for clinic note documentation during this visit. 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 Son Mental health disorder Daughter No problems noted. Social History Housing: Apartment Alcohol intake: current Patient Tobacco Use Status: Current everyday Tobacco user Tobacco use type: Cigarette Cigarette Packs Per Day: 0 Cigarettes Per Day: 10 e-Cigarette/Vaping Use: Never Used Substance Use Type: Marijuana Current occupational status: retired Cognitive needs: No Hearing needs: No Vision needs: Yes Review of Systems Const All systems reviewed & are unremarkable except as noted in HPI and below Physical Exam Vital Signs: Last Vital Signs Pulse 61 10/18/25 07:43 BP 138/62 10/18/25 07:43 Pulse Ox 95 10/18/25 07:43 Oxygen Delivery Method Room Air 10/18/25 07:43 BMI result Body Mass Index 30.1 Office Procedures Cerumen Removal From which ear canal was the cerumen removed: right Removal: irrigation Notes: patient tolerated procedure well, no complications and ear canal clear [id number] Irrigation/Lavage Assessment & Plan Assessment & Plan (1) Weakness: Code(s): R53.1 - Weakness (2) Impacted cerumen of right ear: Code(s): H61.21 - Impacted cerumen, right ear Plan 1. Unstable Gait And Falls - The patient's recent onset of instability and falls is likely multifactorial, with significant contribution from the left-sided cerumen impaction affecting his equilibrium. - His concurrent viral illness and underlying peripheral neuropathy are also considered contributing factors. - The plan is to proceed with cerumen removal from the right ear to see if balance improves. - debrox drops to the ears daily and avoid q-tips - He is advised to schedule a follow-up appointment with his primary doctor. 2. Cerumen Impaction, Left Ear - The patient's left external auditory canal is occluded with cerumen, which is a likely cause of his disequilibrium. - Plan is for ear irrigation to remove the impacted cerumen. - The ear will be re-examined post-procedure to ensure clearance. 3. Acute Upper Respiratory Infection - The patient's symptoms of chills, congestion, mental fogginess, and general malaise are consistent with a viral upper respiratory infection, which appears to be improving. - A nasal swab for COVID-19, influenza, and RSV testing has been collected to identify the specific pathogen. - The patient is encouraged to maintain hydration. Orders: Orders SARS-CoV2/FLU/RSV Today R09.89 - Other specified symptoms and signs involving the circulatory and respiratory systems AMB Cerumen Removal Today H61.23 - Impacted cerumen, bilateral Medications: New carbamide peroxide 6.5% (Debrox) 5 drps otic (ears) DAILY 15 mL 0RF 4 days Coding Level of Care Code Est Pt Level 4 (06547) Diagnoses Weakness R53.1 Impacted cerumen of right ear H61.21 CPT Codes Office Procedure - CPT: 02763-Qnn Irrigation/Lavage ([id number])
[2025-10-18 07:43] VITALS: BP 138/62; PULSE 61; O2SAT 95; BMI 30.1
--- OUTSIDE RECORDS SUMMARY | 2025-10-18 07:43 | XMS_ITS | Clinical Summary ---
Author Organization [facility] Address [address] [place] [phone] Phone Care Team Providers Care Vertica Architect Name Role Phone Jessica Berry MD Primary [...] this topic Medical Devices Implanted Type Area Electronic Imaging System Operator Device Identifier Shelf Expiration Date Model / Serial / Lot Prolaryn Plus Voice Injection 1cc - Sn/A - [id number] Implanted:Qty: 1 on 11/21/2024 by Sharee Carroll MD at [facility] [employer] N/A: Throat [employer] [id number] / N/A / N/A Insurance [place] - [place] Advance Directives Documents on File Type Date Recorded 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
--- OUTSIDE RECORDS SUMMARY | 2025-10-18 07:43 | XMS_ITS | Data Portability ---
Author Organization [place] [facility] Address [address] [place] [phone] Care Team Providers Care Motor Transport Inspector Name Role Phone LUTHER MAXWELL Primary Care [...] Barb Luis Fernando Machado, [place] [phone] Not Available [facility] [address] [facility], [place], [address], 11/24/2024 13:47:02 11/21/19 25 11/21/2024 TISSU E [...] on 2024 at 1:43 PM Not Available [address], [address], 11/24/2024 13:47:02 11/21/19 25 11/21/2024 TISSU E EXAM clinical information Signif icant smokin g histor y, Right base of tongue PET avid mass. Not Available [address], [address], 11/24/2024 13:47:02 11/21/19 25 11/21/2024 TISSU E [...] ximat nithya 0.3 cm in great est [facility] [place], which are wrapp ed in [...] on one slide . CARLOS Not Available [address], [address], 11/24/2024 13:47:02 11/21/19 25 11/21/2024 TISSU E [...] as inves tigat ional or for resea [facility]. This labor atory is certi [...] and paraf fin embed ded. Not Available [address], [address], 11/24/2024 13:47:02 01/28/20 25 01/28/2025 BUN BUN 10 mg/dL 8-27 normal Not Available [facility] [address] [facility], [place], [address], 01/30/2025 13:01:56 01/28/20 25 01/28/2025 CREAT ININE creatinine 0.89 mg/dL 0.76-1 .27 normal Not Available [facility] ([facility] [address] [facility], [place], [address], 01/30/2025 13:01:57 01/28/20 25 01/28/2025 CREAT ININE eGFR 90 mL/mi n/1.7 3 >59 normal Not Available [facility] ([facility] [address] [place], [address], 01/30/2025 13:01:57 11/21/19 25 11/21/2024 H&P No observ ation record ed. [address], [address], 11/23/2024 09:02:03 11/21/19 25 11/21/2024 brief op note No observ ation record ed. [address], [address], 11/23/2024 09:02:03 11/21/19 25 11/21/2024 op note No observ ation record ed. [facility] [address] [facility], [place], [address], 11/23/2024 09:02:03 12/19/19 25 11/21/2024 clini lorraine photo * No observ ation record ed. [email or web address] Not Available 11/27 10:20:25 02/25/20 25 02/01/2025 CT, neck, soft tissu e, w/ contr ast No observ ation record ed. [facility] [place] [address], [place], [address], 03/01/2025 09:51:50 08/15/20 25 10/11/2024 CT, neck, soft tissu e, w/ contr ast No observ ation record ed. [email or web address] [place] [address] (Imaging) [address] [place] [address], [address], 08/15/2025 14:31:51 Result Notes None recorded. Problems Name Problem SNOMED Code Status Onset Date Resolution Date Notes Provider Name and Address Organization Details Recorded Time Mass of head and/or neck 283247264 Active 2024 PRIYANKA DONNELLY MD [address] [place] [address], [place], [address], [facility] - [facility] 13:34:45 Mass of tongue 492889700 Active 2024 PRIYANKA DONNELLY MD [address] [facility] E [facility], [place], [address], [place] - [facility] 13:34:55 Continuous dependence on cigarette smoking 6495622527667 08 Active 2024 PRIYANKA DONNELLY MD [address] [facility], [place], [address], [place] [facility] 15:12:50 Lung mass 170286466 Active 2024 PRIYANKA DONNELLY MD [address] [facility] [address], [address], [facility] [place] 15:12:53 Problem Notes None recorded. Procedures Surgical History Date Name Laterality Status Provider Name and Address Organization Details Recorded Time 06/05/20 25 Fiberoptic Laryngoscopy (Comprehensive) completed HUGO SUGGS MD [address] [facility],[address], [address], [facility] 06/05/2025 09:09:21 02/25/20 25 Fiberoptic Laryngoscopy (Comprehensive) completed HUGO SUGGS MD [address] [facility],[address], [address], [facility] 03/01/2025 09:35:14 11/21/19 25 direct laryngoscopy with biopsy completed HUGO SUGGS MD [address] [facility],[address], [address], [facility] 11/21/2024 15:22:09 11/08/19 25 Fiberoptic Laryngoscopy (Comprehensive) completed PRIYANKA DONNELLY MD [address] [facility],[address], [address], [facility] 11/08/2024 15:10:10 Imaging Results None recorded. [...] Details Last Updated DateTime 11/08/2024 172.72 cm 95319.74 g Elvira Saldivar [place] [facility] 11/08/2024 12:59:57 Date Recorded Body height Body mass index (BMI) Body weight Provider Name and Address Organization Details Last Updated DateTime 02/24/2025 168.91 cm 31.5 kg/m2 99416.29 g Jesusita Patterson [facility] 02/24/2025 08:53:12 Date Recorded Body height Body mass index (BMI) Body weight Provider Name and Address Organization Details Last Updated DateTime 06/05/2025 168.91 cm 32.6 kg/m2 50716.44 g Jesusita Patterson [facility] 06/05/2025 08:58:23 Social History None recorded. Functional Status None recorded. Mental Status None recorded. Family History Nothing Reported. Medical History Condition Response Allergies/Hayfever N Heart Problems Y Anxiety Y Tonsil Infections N Emphysema N Migraines N Thyroid Problems Y Depression Y COPD N Developmental Delay N Glaucoma N Nasal or Sinus Problems N Anemia N Immune System Disorder N Anesthesia Complications N Heart Attack ([place]) N Other Skin Condition N Diabetes N [...] ICD10 Code Diagnosis IMO Codes Diagnosis Note [id number] PRIYANKA DONNELLY MD [facility] [address] [address] 11/08/2024 12:34:11 11/08/2024 15:57:41 Mass of tongue 912928053 R22.0 Continuous dependence on cigarette smoking 2373461286 05449 F17.210 Lung mass 078343689 R91. 8 [id number] HUGO SUGGS MD [facility] [address] [address] 02/24/2025 08:35:48 02/24/2025 09:24:55 Mass of tongue 494952661 R22.0 74-year-ol d male, smoker, initially presented [...] he develop any dysphagia, otalgia, sore throat. [id number] HUGO SUGGS MD [facility] [address] [place] [address] 06/05/2025 08:53:11 06/05/2025 09:15:16 Mass of tongue 614928043 R22.0 74-year-ol d male, smoker, initially presented [...] smoking. Finding of tobacco use and exposure 014955329 Z72.0 [id number] Health Concerns Section Related Observation LastModified by Organization Detai ls LastModified Time None Recorded Concern Status LastModified by Organization Details LastModified Time None Recorded Advance Directives Directive None Recorded Payers Insurance Date Sequence Insurance Name Policy Number Policy Bruner Covered Member ID Bruner Member ID Guarantor Name 02/24/2025 1 [place] PPO) [id number] Teddy F Daniel [id number] Teddy F Daniel 06/05/2025 1 [place] HMO) [id number] Teddy F Daniel [id number] Teddy F Daniel Notes Date Note [...] extending to the midline. PRIYANKA DONNELLY MD [address] [place] [address], [address], [place] - [facility] 11/08/2024 15:13:12 02/24/2025 text/html No sore throat, dysphagia, otalgia. CT scan showing concern for infiltrative lesion. HUGO SUGGS MD [address] [place] [address],[address], [address], [place] - [facility] 03/01/2025 09:39:19 06/05/2025 text/html Since last visit, no sore throat, dysphagia, otalgia. Smoking less than 1 pack every 2 days. HUGO SUGGS MD [address] [place] [address],[address], [address], [place] [facility] 06/05/2025 09:52:56
--- OUTSIDE RECORDS SUMMARY | 2025-10-18 07:43 | XMS_ITS | Encounter Summary ---
Author Organization [facility] Address [address] [place] [address] Phone Care Team Providers Care Emr Trainer Name Role Phone Jessica Berry MD Primary Care Provider Dawson Kumar MD Unavailable [phone] Iron Cheng MD Unavailable [phone] Encounter Details Date Type Department Care Team (Late st Contact Info) Description 06/28/2015 Transcribe Orders [facility] [address] [place], [place] [id number] Ameena Lozano [address] [place] [phone] [email or web address] Social History Tobacco Use Types Packs/Day [...] (No Interpretation) (06/28/2015 2:47 PM EDT) N[facility]ative [facility] - 06/28/2015 2:47 PM EDT This study is for PACS storage only and not for interpretation. us Tatiana Leonard MD CV US VASCULAR Final Result [facility] * US Vascular Outside (No Interpretation) (06/28/2015 2:44 PM EDT) Narrative [facility] - 06/28/2015 2:44 PM EDT This study is for PACS storage only and not for interpretation. us Tatiana Leonard MD CV US VASCULAR Final Result ALONZO_[facility] documented in this encounter Visit Diagnoses Not on filedocumented in this encounter Care Teams Emr Trainer Relationship Specialty Start Date End Date Jessica Berry MD [address] [place] [address] PCP - General 03/01/15 Dawson Kumar MD [address] [place] [phone] [email or web address] Historical LMR Provider 03/10/15 Iron Cheng MD [address] [place] [address] [email or web address] Historical LMR Provider 03/10/15 documented as of this encounter Additional Source Comments The information contained in this document represents components of the legal health record. It is not the complete legal health record.[facility]
--- OUTSIDE RECORDS SUMMARY | 2025-10-18 07:43 | XMS_ITS | Encounter Summary ---
Author Organization [employer] Address [address] [facility] [address] [place] [address] Care Team Providers Care Set Up Mold Technician Name Role Phone Unavailable Primary Care Provider Unavailabl e Encounter Details Date Type Department Care Team (Latest Contact Info) Description 01/25/2019 Abstract [facility] CONVERSIONS Dental, Provider, DDS Social [...]
--- OUTSIDE RECORDS SUMMARY | 2025-10-18 07:43 | XMS_ITS | Clinical Summary ---
Author Organization [facility] Address [address] [place] [phone] Phone Care Team Providers Care Boat Rental Clerk Name Role Phone Jessica Berry MD Primary Care Provider Dawson Kumar MD Unavailable [phone] Iron Cheng MD Unavailable [phone] Allergies Active Allergy Reactions Criticality Noted Date [...] Formulation 11/08(Deferred: Other - , Ordered By: [id number]),12/01/2012(Deferred: Other) Pneumococcal, Unspecified Formulation (Deferred: Other - , Ordered By: [id number]) Social History Tobacco Use Types Packs/Day Years [...] Medical Devices Not on file Care Teams Boat Rental Clerk Relationship Specialty Start Date End Date Jessica Berry MD [address] [facility] [place] [address] PCP - General 03/01/15 Dawson Kumar MD [address] [place] [phone] [email or web address] Historical LMR Provider 03/10/15 Iron Cheng MD [address] [place] [id number] [email or web address] Historical LMR Provider 03/10/15 Additional Source Comments The information contained in this document represents components of the legal health record. It is not the complete legal health record.[facility]
--- OUTSIDE RECORDS SUMMARY | 2025-10-18 07:43 | XMS_ITS | Clinical Summary ---
Author Organization [employer] Address [address] [facility] 7t [place] [address] Care Team Providers Care Animal Husbandry Technician Name Role Phone Unavailable Primary Care [...]
== END 2025-10-18 09:09 | disposition home or self-care (01) ==
PROVIDERS: PCP Internal Medicine; Visit Provider Physician Assistant Medical
DX: R53.1 Weakness (principal); H61.21 Impacted cerumen, right ear; R26.81 Unsteadiness on feet; Z91.81 History of falling

== ENCOUNTER 2025-10-18 07:39 | Outpatient (REF) | payer MEDICARE, MEDICAID, SELFPAY ==
[2025-10-18 11:32] LABS: Resp Syncy Virus RNA Qual PCR NEGATIVE (Negative); SARS COV2 PCR INHOUSE POSITIVE (Negative)
== END 2025-10-18 07:40 | disposition home or self-care (01) ==
LOC: HO.LAB 07:39
PROVIDERS: Physician Assistant Medical; PCP Internal Medicine
DX: U07.1 COVID-19 (principal); H61.23 Impacted cerumen, bilateral; R53.1 Weakness; J06.9 Acute upper respiratory infection, unspecified; R09.89 Other specified symptoms and signs involving the circulatory and respiratory systems; F17.210 Nicotine dependence, cigarettes, uncomplicated
CPT/HCPCS: 69209; 87637; 99212